=== PATIENT | female | born 1940 | race African-American/Black ===

== ENCOUNTER 2018-08-23 15:26 | Inpatient (IN) | payer MEDICARE, OTHER ==
[2018-08-23] MEDS ORDERED: Morphine 4 MG/ML VIAL ONE (16:10)
[2018-08-23] MEDS ORDERED: Acetaminophen 500 MG TAB ONE (16:12)
[2018-08-23 16:32] LABS: #Eosinphils 0.1 thou/uL (0.0-0.7); #Lymphocytes 0.9 thou/uL (1.20-3.40); #Monocytes 0.6 thou/uL (0.11-0.59); #Neutrophils 9.2 thou/uL (1.40-6.50); %Basophils 0.3 % (0.0-1.0); %Eosinophils 0.5 % (0.0-10.0); %Lymphocytes 8.2 % (21.0-51.0); %Monocytes 5.6 % (0.0-10.0); %Neutrophils 85.4 % (42.0-75.0); Hemoglobin 10.9 g/dL (12.0-16.0); Mean Corpuscular HGB CONC 32.1 g/dL (32.0-36.0); Mean Corpuscular Hemoglobin 25.1 pg (27.0-31.0); Mean Corpuscular Volume 78.1 fL (78.0-98.0); Mean Platelet Volume 7.2 fL (7.4-10.4); Platelet Count 363 thou/uL (130-400); RBC Distribution Width 13.4 % (11.5-14.5); Red Blood Cell (RBC) Count 4.36 mill/uL (4.20-5.40); White Blood Cell (WBC) Count 10.8 thou/uL (4.8-10.8)
--- NOTE | 2018-08-23 16:39 | RAD ---
1 view chest. HISTORY: Fever. AP view chest demonstrates cardiomegaly. Pulmonary vascular congestion seen. No evidence of effusions , pneumonia or pneumothorax seen. IMPRESSION: Cardiomegaly.
--- NOTE | 2018-08-23 16:46 | RAD ---
3 views right foot. HISTORY: Right-sided pain. AP, lateral and oblique views right foot obtained. 3 views right foot straight no evidence of acute fractures, subluxations or bony lesions. IMPRESSION: Normal 3 views right foot.
[2018-08-23 16:49] LABS: Bilirubin Negative (Negative); Blood, Urine Trace (Negative); Clarity TURBID (Clear); Glucose, Urine (Dipstick) Negative (Negative); Leukocyte Large (Negative); Nitrite Negative (Negative); Protein, Urine (Dipstick) 100 mg/dL (Neg-Trace); Specific Gravity, Urine 1.016 (1.002-1.036); pH, Urine 6.5 (5.0-9.0)
[2018-08-23 16:51] LABS: Bacteria/HPF 4+ HPF (None Seen)
[2018-08-23 16:54] LABS: Pathc Cast-AUWi Flag 4.76 (0-2.49)
[2018-08-23 17:00] LABS: ALT (SGPT) Less than 7 U/L (8-55); AST (SGOT) 10 U/L (5-34); Albumin 4.2 g/dL (3.4-4.8); Alkaline Phosphatase 113 U/L (40-150); Anion Gap 16 mmol/L (10-20); BUN (Urea Nitrogen) 13 mg/dL (9.8-20.1); Bilirubin, Total 0.5 mg/dL (0.2-1.2); Calc. Creatinine Clearance 0 mL/min (70-130); Calcium 9.6 mg/dL (7.8-10.44); Carbon Dioxide 24 mmol/L (23-31); Chloride 102 mmol/L (98-107); Estimated GFR-MDRD 63; Globulin 3.5 g/dL (2.4-3.5); Glucose 212 mg/dL (83-110); Lipase 8 U/L (8-78); Magnesium 2.4 mg/dL (1.6-2.6); Potassium 4.3 mmol/L (3.5-5.1); Protein, Total 7.7 g/dL (6.0-8.3); Sodium 138 mmol/L (136-145)
[2018-08-23 17:04] LABS: Hyaline Casts/LPF 0-3 HYALINE CAST LPF (0-3 Hyaline)
[2018-08-23] MEDS ORDERED: Piperacillin/Tazobactam 3.375 GM VIAL ONE (17:31)
--- NOTE | 2018-08-23 18:04 | HP ---
HISTORY OF PRESENT ILLNESS: Samina Hills is a 77-year-old black female, lives in [place] with her sister. She is admitted by Medical Service for UTI. White count of 10 and hemoglobin of 10.9. Basic metabolic profile normal. Glucose 212. I have been asked by Dr. Tsai to see her regarding her right plantar foot callus and blister. She has had this for some time. She does have diabetes mellitus type 2, on oral hypoglycemics. She has been admitted to the Medical Service for other reasons. SOCIAL HISTORY: Tobacco, none. Alcohol, none. ALLERGIES: NONE. MEDICATIONS: She takes oral hypoglycemics and list has not been reconciled. IMAGING STUDIES: She has had an x-ray of her foot, which is unremarkable. Chest x-ray reveals cardiomegaly foot. PHYSICAL EXAMINATION: VITAL SIGNS: Blood pressure 140/80, respiratory rate 18, heart rate 74. HEAD, EARS, EYES, NOSE, AND THROAT: Unremarkable. LUNGS: Clear to auscultation. CARDIAC: Regular rate and rhythm. No murmur or gallop. ABDOMEN: Soft, obese, and nontender. EXTREMITIES: Palpable femoral, popliteal, pedal pulses. Chronic venous stasis changes with edema of both lower legs. Hyperpigmentation. Right foot plantar reveals skin callus, but no infection. LABORATORY DATA: As noted above. ASSESSMENT AND PLAN: 1. Diabetes mellitus with diabetic plantar foot callus. We would plan debridement at the bedside in the next 24 to 48 hours. Risks and benefits were explained to the patient, she consents. 2. Diabetes mellitus. 3. Chronic venous stasis changes. 4. Urinary tract infection, per Medical. Job ID: [id number]
[2018-08-23] MEDS ORDERED: Bisacodyl 10 MG SUPP PR PRN (19:33)
[2018-08-23] MEDS ORDERED: Dextrose 50% Abboject 50 ML SYRINGE SLOW IVP PRN (19:33)
[2018-08-23] MEDS ORDERED: Dextrose 5% in Water 1,000 ML IV PRN (19:33)
[2018-08-23] MEDS ORDERED: Guaifenesin DM 100-10/5 ML UDCUP PO PRN (19:33)
[2018-08-23] MEDS ORDERED: Sodium Chloride 0.9% 1,000 ML IV SCH (19:33)
--- NOTE | 2018-08-23 20:03 | HP ---
REASON FOR ADMISSION: Sepsis, UTI, right heel ulcer; diabetes mellitus type 2, uncontrolled; hypertension uncontrolled. HISTORY OF PRESENTING ILLNESS: The patient gives history of having right lower quadrant abdominal pain from this morning. Her last bowel movement was 3 days back. The pain was constant pain with some radiation going to the back. As this pain was unrelenting, the patient called her son who called EMS and the patient finally made it here. On arrival, the patient was found to have right heel ulcer, which was emanating malodor. The patient was also found to have a temperature of 101.8 in the ER with blood pressure of 207/80. No complaints of chest pain or palpitation. The patient is lethargic, but oriented. PAST MEDICAL AND SURGICAL HISTORY: History of hypertension. She is off medications for diabetes as her sugars were dropping and this was a year back and stopped all her medications. No prior surgical history per patient. She has not had a colonoscopy, but the patient states she has had 2 stool tests done which were negative, hence colonoscopy was not done. No prior cardiac workup with stress test. CURRENT MEDICATIONS: Cardizem CD 240 mg p.o. daily. She does not recall other medications if she takes. To the best of her knowledge, she takes only one at present. ALLERGIES: NO KNOWN DRUG ALLERGIES. PERSONAL HISTORY: Does not abuse alcohol or drugs. 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 She ambulates by herself, although at times holds onto the may. FAMILY HISTORY: Mother at the age of 77 years, she has had history of hypertension. Father of old age at the age of 79 years. Code status is full. Power of supervisor microwave is her son, Mr. Rick Hills. REVIEW OF SYSTEMS: CONSTITUTIONAL: Negative for weight loss or gain, ability to conduct usual activities. SKIN: Negative for rash, itching. EYES: Negative for double vision, pain. ENT/MOUTH: Negative for nose bleeding, neck stiffness, pain, tenderness. CARDIOVASCULAR: Negative for palpitations, dyspnea on exertion, orthopnea. RESPIRATORY: Negative for shortness of breath, wheezing, cough, hemoptysis, fever or night sweats. GASTROINTESTINAL: Negative for poor appetite, abdominal pain, heartburn, nausea , vomiting, constipation, or diarrhea. GENITOURINARY: Negative for urgency, frequency, dysuria, nocturia. MUSCULOSKELETAL: Negative for pain, swelling. NEUROLOGIC/PSYCHIATRIC: Negative for anxiety, depression. ALLERGY/IMMUNOLOGIC: Negative for skin rash, bleeding tendency. PHYSICAL EXAMINATION: GENERAL: The patient is a 77-year-old female, who is currently lethargic, but not in any acute distress. VITAL SIGNS: Blood pressure 206/80, pulse 104 per minute, respiratory rate 18 per minute, temperature 101.8 degrees Fahrenheit, saturating 94% on room air. NECK: Supple. No elevated JVD. HEENT: Eyes; extraocular muscles intact. Pupils reacting to light. Oral cavity, mucous membranes are dry. No exudates or congestion. CARDIOVASCULAR: S1 and S2 heard. Regular rhythm. Tachycardic. RESPIRATORY: Air entry 1+ bilateral. No rales or rhonchi. ABDOMEN: Soft. Bowel sounds heard. There is mild tenderness in the right lower quadrant. No rigidity or guarding. Bowel sounds are heard. EXTREMITIES: The patient has a right heel ulceration. There is some maceration of skin. No other ulcers are seen on the right or the left foot. No calf tenderness. VASCULAR SYSTEM: Peripheral pulses are 1+ bilateral in the upper extremities. Right lower extremity barely palpable. Left is 1+ bilateral. CENTRAL NERVOUS SYSTEM: The patient is lethargic, but is oriented well. No focal deficits noted. PSYCHIATRIC: The patient's mood is euthymic. No obvious hallucinations or delusions. LABORATORY DATA: EKG done shows normal sinus rhythm at 99 beats per minute. White count of 10, H and H 11 and 34, platelet count 363, MCV 78 with 85% neutrophils. Electrolytes stable. BUN 13, creatinine 0.8, serum glucose 212. Lactic acid 0.9. Liver enzymes within normal limits. Albumin is 4.2. Lipase is 8. UA shows trace blood, large leukocyte esterase, greater than 50 wbc's, and 4+ bacteria. Three- view right foot x-ray is normal with no acute fracture, subluxation, or bony lesions. Chest x-ray done shows cardiomegaly and pulmonary vascular congestion. CLINICAL IMPRESSION AND PLAN: The patient will be admitted to medical floor for sepsis, urinary tract infection, right heel ulcer, possible chronic anemia, uncontrolled diabetes, and uncontrolled hypertension. Blood and urine cultures have been obtained in the ER. We will start her on meropenem. CT of the abdomen and pelvis is currently pending. Dr. Peterson for General surgery has evaluated her right foot and the plan is for debridement in the morning. We will get PT, OT, and wound care evaluations as well. She will be on Lantus 10 units subcu twice daily along with small dose of Lopressor and lisinopril. Echo with 2D Doppler will be obtained. We will also place on Procardia XL 30 mg daily. The patient appears to be dehydrated and has a fever of 101.8 degrees. She will be on normal saline at 100 mL/h. She will be placed on stool softeners. If needed, Dulcolax suppository will be used. We will continue to closely monitor her on medical floor. Job ID: [id number] [facility]
[2018-08-23 20:19] LABS: Hemoglobin A1c 10.1 % (4.0-6.0)
[2018-08-23 20:31] LABS: Iron 12 ug/dL (50-170); Iron Binding Capacity, Total 266 mcg/dL (265-497)
[2018-08-23 21:06] LABS: Folate (Folic Acid) 5.3 ng/mL (7.0-31.4)
[2018-08-23] MEDS: Sodium Chloride 0.9% 1,000 ML IV SCH (21:22)
[2018-08-23] MEDS: MEROPENEM 1 GM/50 ML 1 GM in Premix Bag 1 BAG IVPB SCH (21:22)
[2018-08-23] MEDS: Senokot S 8.6-50 MG TAB PO SCH (21:25)
[2018-08-23] MEDS: Metoprolol Tartrate 25 MG TAB PO SCH (21:25)
[2018-08-23] MEDS: Acetaminophen 325 MG TAB PO PRN (21:25)
[2018-08-23] MEDS: Famotidine 20 MG TAB PO SCH (21:25)
[2018-08-23] MEDS: Lisinopril 5 MG TAB PO SCH (21:26)
[2018-08-23] MEDS: Insulin Glargine 10 UNITS in Pre-Filled Syringe 1 EACH SC SCH (21:28)
[2018-08-23 21:52] VITALS: BMI 31.4
[2018-08-24] MEDS: MEROPENEM 1 GM/50 ML 1 GM in Premix Bag 1 BAG IVPB SCH ×3 (03:32→19:59)
[2018-08-24] MEDS: Acetaminophen 325 MG TAB PO PRN ×2 (03:38→19:58)
[2018-08-24] MEDS: Sodium Chloride 0.9% 1,000 ML IV SCH (06:08)
[2018-08-24 06:18] LABS: Anion Gap 18 mmol/L (10-20); BUN (Urea Nitrogen) 12 mg/dL (9.8-20.1); Calc. Creatinine Clearance 80 mL/min (70-130); Calcium 8.6 mg/dL (7.8-10.44); Carbon Dioxide 18 mmol/L (23-31); Chloride 104 mmol/L (98-107); Estimated GFR-MDRD 83; Glucose 203 mg/dL (83-110); Potassium 4.1 mmol/L (3.5-5.1); Sodium 136 mmol/L (136-145)
--- NOTE | 2018-08-24 07:46 | ULT ---
BILATERAL LOWER EXTREMITY VENOUS DOPPLER ULTRASOUND: HISTORY: Bilateral lower extremity edema. TECHNIQUE: Leigh scale ultrasound with color flow and spectral Doppler imaging of the deep venous systems of the lower extremities is performed bilaterally. FINDINGS: The calf veins are suboptimally visualized due to edema. There is good flow, compression, and augmentation noted in the common femoral, femoral, deep femoral, popliteal, visualized portions of the posterior tibial and greater saphenous veins in either lower e xtremity. IMPRESSION: No evidence of deep vein thrombosis in either lower extremity. POS: [facility]
[2018-08-24] MEDS ORDERED: Ferrous Sulfate 325 MG TAB PO SCH (08:00)
[2018-08-24 08:02] LABS: Band 7 % (5-11); Hemoglobin 10.5 g/dL (12.0-16.0); Lymphocytes 6 % (21-51); MDiff Complete? YES; Mean Corpuscular HGB CONC 30.7 g/dL (32.0-36.0); Mean Corpuscular Hemoglobin 24.4 pg (27.0-31.0); Mean Corpuscular Volume 79.3 fL (78.0-98.0); Mean Platelet Volume 7.5 fL (7.4-10.4); Monocytes 1 % (0-10); Neutrophil 86 % (42-75); Platelet Count 337 thou/uL (130-400); RBC Distribution Width 13.4 % (11.5-14.5); White Blood Cell (WBC) Count 16.4 thou/uL (4.8-10.8)
[2018-08-24] MEDS ORDERED: Prevnar 13-Val Conj/PF 0.5 ML SYRINGE IM ONE (09:00)
[2018-08-24] MEDS: NIFEdipine XL 30 MG TAB PO SCH (09:18)
[2018-08-24] MEDS: Metoprolol Tartrate 25 MG TAB PO SCH ×2 (09:19→19:58)
[2018-08-24] MEDS: Senokot S 8.6-50 MG TAB PO SCH ×2 (09:19→19:58)
[2018-08-24] MEDS: Ferrous Sulfate 325 MG TAB PO SCH (09:19)
[2018-08-24] MEDS: Folic Acid 1 MG TAB PO SCH (09:20)
[2018-08-24] MEDS: Lisinopril 5 MG TAB PO SCH ×2 (09:20→19:57)
[2018-08-24] MEDS: Famotidine 20 MG TAB PO SCH ×2 (09:20→19:58)
[2018-08-24] MEDS: Ascorbic Acid 500 mg Chewable Tablet PO SCH (09:20)
[2018-08-24] MEDS: Enoxaparin Sodium 40 MG/0.4 ML SYRINGE SC SCH (09:21)
[2018-08-24] MEDS: Insulin Glargine 10 UNITS in Pre-Filled Syringe 1 EACH SC SCH ×2 (09:21→19:58)
[2018-08-24] MEDS: Multivit, Therapeutic 1 TAB PO SCH (09:22)
--- NOTE | 2018-08-24 11:46 | PDOC.PN ---
- Subjective Encounter Start Date: 08/24/18 Encounter Start Time: 11:25 Subjective: feels better, no sob -: more awake than yesterday -: no abd pain or nausea - Objective Resuscitation Status - Order Detail: 08/23/18 19:27 Resuscitation Status Routine Resuscitation Status: FULL: Full Resuscitation Discussed with: POA: son Mr.Delvin Brannon YOUNGBLOOD Reviewed: Yes Vital Signs & Weight: Vital Signs (12 hours) Temp Pulse Resp BP BP Pulse Ox 08/24/18 11:38 99.6 F 107 H 22 H 181/76 H 90 L 08/24/18 09:20 91 152/67 H 08/24/18 09:18 91 152/67 H 08/24/18 07:32 99.2 F 91 22 H 152/67 H 94 L 08/24/18 03:48 100.8 F H 95 18 160/72 H 94 L Weight Weight 195 lb 1.745 oz I&O: 08/23/18 08/24/18 08/25/18 06:59 06:59 06:59 Intake Total 1550 Balance 1550 Result Diagrams: 08/24/18 07:16 08/24/18 05:48 Additional Labs: Accuchecks 08/23/18 21:29 POC Glucose 226 H Phys Exam - Physical Examination HEENT: PERRLA, moist MMs Neck: no JVD, supple Respiratory: no wheezing, no rales Cardiovascular: RRR, no significant murmur Gastrointestinal: soft, non-tender, no distention, positive bowel sounds Musculoskeletal: edema present right heel in dressing Neurological: non-focal, moves all 4 limbs Psychiatric: normal affect, A&O x 3 Dx/Plan (1) MRSA bacteremia Code(s): R78.81 - BACTEREMIA Status: Acute (2) Sepsis Code(s): A41.9 - SEPSIS, UNSPECIFIED ORGANISM Status: Acute Qualifiers: Sepsis type: methicillin resistant Staphylococcus aureus Qualified Code(s) : A41.02 - Sepsis due to Methicillin resistant Staphylococcus aureus (3) UTI (urinary tract infection) Status: Acute Qualifiers: Urinary tract infection type: acute cystitis Hematuria presence: without hematuria Qualified Code(s): N30.00 - Acute cystitis without hematuria (4) Ulcer of right heel Code(s): L97.419 - NON-PRS CHR ULCER OF RIGHT HEEL AND MIDFOOT W UNSP SEVERT Status: Acute Qualifiers: Non-pressure ulcer stage: with fat layer exposed Qualified Code(s): L97.412 - Non-pressure chronic ulcer of right heel and midfoot with fat layer exposed (5) DM (diabetes mellitus), type 2, uncontrolled Code(s): E11.65 - TYPE 2 DIABETES MELLITUS WITH HYPERGLYCEMIA Status: Acute Qualifiers: Glycemic state: with hyperglycemia Qualified Code(s): E11.65 - Type 2 diabetes mellitus with hyperglycemia (6) Hypertension, uncontrolled Code(s): I10 - ESSENTIAL (PRIMARY) HYPERTENSION Status: Acute (7) Obesity (BMI 30.0-34.9) Code(s): E66.9 - OBESITY, UNSPECIFIED Status: Chronic (8) Iron deficiency anemia Code(s): D50.9 - IRON DEFICIENCY ANEMIA, UNSPECIFIED Status: Acute Qualifiers: Iron deficiency anemia type: unspecified iron deficiency Qualified Code(s) : D50.9 - Iron deficiency anemia, unspecified (9) Folate deficiency Code(s): E53.8 - DEFICIENCY OF OTHER SPECIFIED B GROUP VITAMINS Status: Acute - Plan is on vanc and meropenem, await full sensitivities -: repeat blood cs, if true mrsa then foot is likely source -: gentle iv hydration, iron, folic acid, lantus and glipizide -: low dose lopressor, lisinopril, procardia xl, await echo results -: PT to mobilize as tolerated * . Review of Systems - Medications/Allergies Allergies/Adverse Reactions: Allergies Allergy/AdvReac Type Severity Reaction Status Date / Time No Known Drug Allergies Allergy Verified 08/24/18 02:51 Medications: Current Medications Acetaminophen (Tylenol) 650 mg PO Q4H PRN PRN Reason: Headache/Fever/Mild Pain (1-3) Last Admin: 08/24/18 03:38 Dose: 650 mg Ascorbic Acid (Vitamin C) 500 mg PO DAILY [facility] Last Admin: 08/24/18 09:20 Dose: 500 mg Bisacodyl (Dulcolax) 10 mg [place] DAILYPRN PRN PRN Reason: Constipation Dextrose/Water (Dextrose 50%) 25 gm SLOW IVP PRN PRN PRN Reason: Hypoglycemia Enoxaparin Sodium (Lovenox) 40 mg SC 0900 [facility] Last Admin: 08/24/18 09:21 Dose: 40 mg Famotidine (Pepcid) 20 mg PO BID [facility] Last Admin: 08/24/18 09:20 Dose: 20 mg Ferrous Sulfate (Feosol) 325 mg PO QAM-WM [facility] Last Admin: 08/24/18 09:19 Dose: 325 mg Folic Acid (Folvite) 1 mg PO DAILY [facility] Last Admin: 08/24/18 09:20 Dose: 1 mg Glipizide (Glucotrol) 5 mg PO DAILY-AC [facility] Glucagon (Glucagon) 1 mg IM PRN PRN PRN Reason: Hypoglycemia Guaifenesin/Dextromethorphan (Robitussin Dm) 15 ml PO Q4H PRN PRN Reason: Cough Dextrose/Water (D5w) 1,000 mls @ 0 mls/hr IV .Q0M PRN PRN Reason: Hypoglycemia Insulin Glargine 10 units/ (Miscellaneous Medication) 0.1 mls @ 0 mls/hr SC BID [facility] Last Admin: 08/24/18 09:21 Dose: 0.1 mls Meropenem 1 gm/ Device 50 mls @ 100 mls/hr IVPB 0400,1200,2000 [facility] Last Admin: 08/24/18 03:32 Dose: 50 mls Sodium Chloride (Normal Saline 0.9%) 1,000 mls @ 100 mls/hr IV .Q10H [facility] Stop: 08/24/18 15:32 Last Admin: 08/24/18 06:08 Dose: 1,000 mls Vancomycin HCl 1 gm/ Device 200 mls @ 200 mls/hr IVPB Q12HR [facility] Insulin Human Lispro (Humalog) 0 units SC .MODERATE SLIDING SC PRN PRN Reason: Moderate Correctional Scale Lisinopril (Zestril) 5 mg PO BID [facility] Last Admin: 08/24/18 09:20 Dose: 5 mg Metoprolol Tartrate (Lopressor) 25 mg PO BID [facility] Last Admin: 08/24/18 09:19 Dose: 25 mg Multivitamins (Theragran) 1 tab PO DAILY [facility] Last Admin: 08/24/18 09:22 Dose: 1 tab Nifedipine (Procardia Xl) 30 mg PO DAILY [facility] Last Admin: 08/24/18 09:18 Dose: 30 mg Senna/Docusate Sodium (Senokot S) 2 tab PO BID [facility] Last Admin: 08/24/18 09:19 Dose: 2 tab Sodium Chloride (Flush - Normal Saline) 10 ml IVF Q12HR [facility] Last Admin: 08/24/18 09:22 Dose: Not Given Sodium Chloride (Flush - Normal Saline) 10 ml IVF PRN PRN PRN Reason: Saline Flush
[2018-08-24] MEDS: HumaLOG 300 UNITS/3 ML VIAL SC PRN (13:08)
[2018-08-24] MEDS: Vancomycin HCl 1.75 GM in Sodium Chloride 0.9% 500 ML IVPB SCH (17:58)
[2018-08-24] MEDS ORDERED: Vancomycin HCl 1 GM in Premix Bag 1 BAG IVPB SCH (21:00)
[2018-08-25] MEDS: Acetaminophen 325 MG TAB PO PRN ×2 (00:50→21:01)
[2018-08-25] MEDS: MEROPENEM 1 GM/50 ML 1 GM in Premix Bag 1 BAG IVPB SCH ×3 (03:36→21:02)
[2018-08-25] MEDS: HumaLOG 300 UNITS/3 ML VIAL SC PRN ×2 (05:27→13:27)
[2018-08-25 06:49] LABS: #Lymphocytes 1.8 thou/uL (1.20-3.40); #Monocytes 1.5 thou/uL (0.11-0.59); %Basophils 0.3 % (0.0-1.0); %Eosinophils 0.3 % (0.0-10.0); %Lymphocytes 11.7 % (21.0-51.0); %Monocytes 9.7 % (0.0-10.0); %Neutrophils 78.1 % (42.0-75.0); Hemoglobin 10.3 g/dL (12.0-16.0); Mean Corpuscular HGB CONC 31.2 g/dL (32.0-36.0); Mean Corpuscular Hemoglobin 24.8 pg (27.0-31.0); Mean Corpuscular Volume 79.4 fL (78.0-98.0); Mean Platelet Volume 8.2 fL (7.4-10.4); Platelet Count 300 thou/uL (130-400); RBC Distribution Width 13.5 % (11.5-14.5); Red Blood Cell (RBC) Count 4.16 mill/uL (4.20-5.40); White Blood Cell (WBC) Count 15.3 thou/uL (4.8-10.8)
[2018-08-25 06:57] LABS: ALT (SGPT) 7 U/L (8-55); AST (SGOT) 13 U/L (5-34); Albumin 3.1 g/dL (3.4-4.8); Alkaline Phosphatase 100 U/L (40-150); Anion Gap 11 mmol/L (10-20); BUN (Urea Nitrogen) 14 mg/dL (9.8-20.1); Bilirubin, Total 0.6 mg/dL (0.2-1.2); Calc. Creatinine Clearance 77 mL/min (70-130); Calcium 9.1 mg/dL (7.8-10.44); Carbon Dioxide 24 mmol/L (23-31); Chloride 105 mmol/L (98-107); Estimated GFR-MDRD 79; Globulin 3.5 g/dL (2.4-3.5); Glucose 189 mg/dL (83-110); Potassium 3.4 mmol/L (3.5-5.1); Protein, Total 6.6 g/dL (6.0-8.3); Sodium 137 mmol/L (136-145)
[2018-08-25 08:13] LABS: Hypochromia SLIGHT = 6-15 cells (100X) (0-5/hpf); MDiff Complete? YES; Microcytosis SLIGHT = 6-15 cells (100X) (0-5/hpf); Platelet Morphology Comment Appears Adequate; Polychromasia SLIGHT = 2-3 cells (100X) (0-2/hpf)
[2018-08-25] MEDS ORDERED: Potassium Chloride 10 MEQ TAB PO SCH (09:00)
[2018-08-25] MEDS: Multivit, Therapeutic 1 TAB PO SCH (09:28)
[2018-08-25] MEDS: Ferrous Sulfate 325 MG TAB PO SCH (09:28)
[2018-08-25] MEDS: Famotidine 20 MG TAB PO SCH ×2 (09:28→21:02)
[2018-08-25] MEDS: Metoprolol Tartrate 25 MG TAB PO SCH ×2 (09:29→21:02)
[2018-08-25] MEDS: Senokot S 8.6-50 MG TAB PO SCH ×2 (09:29→21:02)
[2018-08-25] MEDS: glipiZIDE 5 MG TAB PO SCH (09:29)
[2018-08-25] MEDS: NIFEdipine XL 30 MG TAB PO SCH (09:29)
[2018-08-25] MEDS: Ascorbic Acid 500 mg Chewable Tablet PO SCH (09:30)
[2018-08-25] MEDS: Insulin Glargine 10 UNITS in Pre-Filled Syringe 1 EACH SC SCH ×2 (09:30→21:03)
[2018-08-25] MEDS: Lisinopril 5 MG TAB PO SCH ×2 (09:30→21:02)
[2018-08-25] MEDS: Enoxaparin Sodium 40 MG/0.4 ML SYRINGE SC SCH (09:30)
[2018-08-25] MEDS: Folic Acid 1 MG TAB PO SCH (09:31)
--- NOTE | 2018-08-25 11:37 | PDOC.PN ---
- Subjective Encounter Start Date: 08/25/18 Encounter Start Time: 11:00 Patient seen and examined for diabetic foot infection/Sepsis. Fever +. No chills. No new complaints. No overnight events - Objective Resuscitation Status - Order Detail: 08/23/18 19:27 Resuscitation Status Routine Resuscitation Status: FULL: Full Resuscitation Discussed with: POA: son Mr.Delvin Brannon YOUNGBLOOD Reviewed: Yes Vital Signs & Weight: Vital Signs (12 hours) Temp Pulse Resp BP BP Pulse Ox 08/25/18 09:30 93 125/68 08/25/18 09:29 93 125/68 08/25/18 08:00 100.0 F H 93 22 H 125/68 94 L 08/25/18 05:07 99.8 F H 100 20 126/69 92 L 08/25/18 00:56 99.7 F H 93 20 106/67 91 L Weight Admit Weight 195 lb 1.745 oz Weight 195 lb 1.745 oz I&O: 08/24/18 08/25/18 08/26/18 06:59 06:59 06:59 Intake Total 1550 3210 Balance 1550 3210 Result Diagrams: 08/25/18 05:07 08/25/18 05:07 Additional Labs: Accuchecks 08/25/18 08/25/18 08/24/18 10:34 05:00 19:51 POC Glucose 203 H 192 H 279 H 08/24/18 08/24/18 16:53 11:43 POC Glucose 183 H 183 H Radiology Reviewed by me: Yes (CXR - NAD, Foot XR - No Osteo) Phys Exam - Physical Examination Constitutional: NAD Respiratory: no wheezing, no rales, no rhonchi Symmetrical Cardiovascular: RRR, no rub no heaves/pulsations Gastrointestinal: soft, non-tender, no distention, positive bowel sounds Musculoskeletal: edema present B/L LE Neurological: non-focal, normal sensation Psychiatric: normal affect, A&O x 3 Dx/Plan - Plan PT/OT, DVT proph w/lovenox, DVT proph w/SCDs IMPRESSION: Sepsis due to Staph UTI with bacteremia/Diabetic foot infection DM2 Hypokalemia HTN Obesity BMI 31.5 Chronic Venous Stasis Chronic Anemia CKD 2 Folic acid def PLAN: Cont Vancomycin/Meropenem Monitor Vancomycin level Cont current dose of Lantus with sliding scale Replace Potassium AM labs Cont Wound care Echo - No vegetation Cont Lisinopril Review of Systems - Review of Systems Respiratory: negative: Cough, Dry, Shortness of Breath, Hemoptysis, SOB with Excertion, Pleuritic Pain, Sputum, Wheezing Cardiovascular: negative: chest pain, palpitations, orthopnea, paroxysmal nocturnal dyspnea, edema, light headedness, other - Medications/Allergies Allergies/Adverse Reactions: Allergies Allergy/AdvReac Type Severity Reaction Status Date / Time No Known Drug Allergies Allergy Verified 08/24/18 02:51 Medications: Current Medications Acetaminophen (Tylenol) 650 mg PO Q4H PRN PRN Reason: Headache/Fever/Mild Pain (1-3) Last Admin: 08/25/18 00:50 Dose: 650 mg Ascorbic Acid (Vitamin C) 500 mg PO DAILY [facility] Last Admin: 08/25/18 09:30 Dose: 500 mg Bisacodyl (Dulcolax) 10 mg [place] DAILYPRN PRN PRN Reason: Constipation Dextrose/Water (Dextrose 50%) 25 gm SLOW IVP PRN PRN PRN Reason: Hypoglycemia Enoxaparin Sodium (Lovenox) 40 mg SC 0900 [facility] Last Admin: 08/25/18 09:30 Dose: 40 mg Famotidine (Pepcid) 20 mg PO BID [facility] Last Admin: 08/25/18 09:28 Dose: 20 mg Ferrous Sulfate (Feosol) 325 mg PO QAM-[facility] Last Admin: 08/25/18 09:28 Dose: 325 mg Folic Acid (Folvite) 1 mg PO DAILY [facility] Last Admin: 08/25/18 09:31 Dose: 1 mg Glipizide (Glucotrol) 5 mg PO DAILY-[facility] Last Admin: 08/25/18 09:29 Dose: 5 mg Glucagon (Glucagon) 1 mg IM PRN PRN PRN Reason: Hypoglycemia Guaifenesin/Dextromethorphan (Robitussin Dm) 15 ml PO Q4H PRN PRN Reason: Cough Dextrose/Water (D5w) 1,000 mls @ 0 mls/hr IV .Q0M PRN PRN Reason: Hypoglycemia Insulin Glargine 10 units/ (Miscellaneous Medication) 0.1 mls @ 0 mls/hr SC BID [facility] Last Admin: 08/25/18 09:30 Dose: 0.1 mls Meropenem 1 gm/ Device 50 mls @ 100 mls/hr IVPB 0400,1200,2000 [facility] Last Admin: 08/25/18 03:36 Dose: 50 mls Vancomycin HCl 1.75 gm/ Sodium (Chloride) 500 mls @ 250 mls/hr IVPB 1800 [facility] Last Admin: 08/24/18 17:58 Dose: 500 mls Insulin Human Lispro (Humalog) 0 units SC .MODERATE SLIDING SC PRN PRN Reason: Moderate Correctional Scale Last Admin: 08/25/18 05:27 Dose: 2 unit Lisinopril (Zestril) 5 mg PO BID [facility] Last Admin: 08/25/18 09:30 Dose: 5 mg Metoprolol Tartrate (Lopressor) 25 mg PO BID [facility] Last Admin: 08/25/18 09:29 Dose: 25 mg Miscellaneous Medication (Pharmacy To Dose) 1 each IVPB PRN PRN PRN Reason: . Multivitamins (Theragran) 1 tab PO DAILY [facility] Last Admin: 08/25/18 09:28 Dose: 1 tab Nifedipine (Procardia Xl) 30 mg PO DAILY [facility] Last Admin: 08/25/18 09:29 Dose: 30 mg Polyethylene Glycol (Miralax) 17 gm PO DAILY PRN PRN Reason: Constipation Senna/Docusate Sodium (Senokot S) 2 tab PO BID [facility] Last Admin: 08/25/18 09:29 Dose: 2 tab Sodium Chloride (Flush - Normal Saline) 10 ml IVF Q12HR [facility] Last Admin: 08/25/18 09:31 Dose: 10 ml Sodium Chloride (Flush - Normal Saline) 10 ml IVF PRN PRN PRN Reason: Saline Flush
[2018-08-25] MEDS: Polyethylene Glycol 3350 17 GM Packet PO PRN (14:59)
--- NOTE | 2018-08-25 15:25 | PDOC.EVN ---
Event Note - Event Note Event Note: RN called - Bladder scan >999 ml. Plan: Ortiz cath
[2018-08-25] MEDS: Vancomycin HCl 1.75 GM in Sodium Chloride 0.9% 500 ML IVPB SCH (18:08)
--- NOTE | 2018-08-25 19:42 | ULT ---
LOWER EXTREMITY ARTERIAL DOPPLER STUDY: 08/25/18 INDICATIONS: Absent peripheral pulses. Right heel ulcer. Right lower extremity: Right common femoral artery showed triphasic waveform. The right profunda, superficial femoral artery and popliteal artery all show a biphasic waveform with symmetric velocities. Anterior tibial artery not identified. Posterior tibial artery and dorsal pedis artery show a biphasic waveform. Left lower extremity: Left common femoral artery, profunda, superficial femoral artery, and popliteal all demonstrate bipha sic waveforms. Velocities are symmetric. The left anterior tibial artery not identified. Left posterior tibial artery shows a biphasic waveform. The left dorsal pedis shows a monophasic waveform. IMPRESSION: Anterior tibial artery is not identified in either extremity which could indicate occlusion bilateral ly. Waveform analysis shows evidence of moderate peripheral vascular disease. POS: [facility]
--- NOTE | 2018-08-25 21:50 | CON ---
DATE OF CONSULTATION: 08/25/2018 REASON FOR CONSULTATION: Bacteremia with an ulcer in the right foot. HISTORY OF PRESENT ILLNESS: A 77-year-old with a history of type 2 diabetes, poorly controlled, who was admitted with what she describes as diffuse abdominal pain, some constipation. She was brought to the emergency room because of this pain and general malaise, but on arrival, she had an obvious necrotic ulcer in the right heel. According to the patient, her ulcer has been there for at least 3 weeks and no doctor has evaluated it yet. There was a foul odor emanating from the ulcer. Initial temperature 101.8. Currently, she is awake. She has just finished eating lunch. No headaches. No visual symptoms, sore throat, odynophagia, or dysphagia. No dyspnea or chest pain. No abdominal pain. No diarrhea. No genitourinary symptoms. Not much pain in the right foot. PAST MEDICAL HISTORY: Hypertension, diabetes type 2, neuropathy. ALLERGIES: NONE. 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 CURRENT MEDICATIONS: 1. Tylenol. 2. Vitamin C. 3. Dulcolax. 4. Lovenox. 5. Pepcid. 6. Feosol. 7. Folvite. 8. Glucotrol. 9. Insulin. 10. Zestril. 11. Meropenem. 12. Vancomycin. FAMILY HISTORY: Noncontributory. PHYSICAL EXAMINATION: VITAL SIGNS: T-max 102.6, currently 100; blood pressure 130/74; pulse 96. SKIN: Exam shows necrotic ulcer at the base of the right heel. The ulcer encompasses pretty much the entire right heel skin surface at the base. The ulcer is necrotic in all its dimensions. LYMPHATIC: No lymphadenopathy. HEENT: Ocular movements conjugate. Oral cavity not remarkable. NECK: Supple. No jugular venous distention. LUNGS: Symmetric. Clear breath sounds. HEART: S1 and S2. Regular rate. No S3 or S4. ABDOMEN: Soft, not distended or tender. No ascites. No bladder distention. EXTREMITIES: Pulses are diminished in popliteal and dorsalis pedis on the right side. I could not feel any dorsalis pedis or posterior tibialis. Left side has 1+ dorsalis pedis and popliteals. Cap refill is delayed. She is able to move extremities without major limitations. Cognitive function appears to be intact. LABORATORY DATA: White cell count 10.8 and 15.3, hemoglobin 10.3, platelets 300. Sodium 137, creatinine 0.84, ALT 7, AST 13, globulin 3.1, albumin 3.5. Urinalysis with greater than 50 wbc's and 100 protein. ASSESSMENT: Type 2 diabetes, peripheral vascular disease, coronary artery disease, chronic ulcer right heel of unknown duration, which now has progressed to a more aggressive process with bacteremia due to methicillin-resistant Staphylococcus aureus. A polymicrobial comfort is likely though it is at the origin of this infection. We will order a duplex arterial ultrasound to evaluate vascular supply to the right lower extremity. Dr. Peterson is going to schedule debridement. The patient is at high risk for amputation in view of the area of involvement and the advance necrosis noted. If she is managed without amputation, then the next step would have to be to place a PICC line for protracted treatment, but again she is at risk for a below-knee amputation. Job ID: [id number]
[2018-08-26] MEDS: MEROPENEM 1 GM/50 ML 1 GM in Premix Bag 1 BAG IVPB SCH ×3 (04:00→20:41)
[2018-08-26 05:58] LABS: Anion Gap 10 mmol/L (10-20); BUN (Urea Nitrogen) 13 mg/dL (9.8-20.1); Calc. Creatinine Clearance 90 mL/min (70-130); Calcium 8.6 mg/dL (7.8-10.44); Carbon Dioxide 24 mmol/L (23-31); Chloride 106 mmol/L (98-107); Estimated GFR-MDRD Greater than 90; Glucose 111 mg/dL (83-110); Magnesium 1.9 mg/dL (1.6-2.6); Potassium 3.4 mmol/L (3.5-5.1); Sodium 137 mmol/L (136-145)
[2018-08-26 06:47] LABS: #Eosinphils 0.2 thou/uL (0.0-0.7); #Lymphocytes 1.8 thou/uL (1.20-3.40); #Monocytes 1.2 thou/uL (0.11-0.59); #Neutrophils 8.6 thou/uL (1.40-6.50); %Eosinophils 1.6 % (0.0-10.0); %Lymphocytes 15.6 % (21.0-51.0); %Monocytes 10.1 % (0.0-10.0); %Neutrophils 72.6 % (42.0-75.0); Hemoglobin 9.6 g/dL (12.0-16.0); Mean Corpuscular HGB CONC 30.4 g/dL (32.0-36.0); Mean Corpuscular Hemoglobin 24.2 pg (27.0-31.0); Mean Corpuscular Volume 79.6 fL (78.0-98.0); Mean Platelet Volume 8.1 fL (7.4-10.4); Platelet Count 302 thou/uL (130-400); RBC Distribution Width 13.4 % (11.5-14.5); Red Blood Cell (RBC) Count 3.97 mill/uL (4.20-5.40); White Blood Cell (WBC) Count 11.8 thou/uL (4.8-10.8)
[2018-08-26] MEDS: Insulin Glargine 10 UNITS in Pre-Filled Syringe 1 EACH SC SCH ×2 (08:41→20:45)
[2018-08-26] MEDS: Senokot S 8.6-50 MG TAB PO SCH ×2 (08:42→20:42)
[2018-08-26] MEDS: glipiZIDE 5 MG TAB PO SCH (08:42)
[2018-08-26] MEDS: Potassium Chloride 20 MEQ TAB PO SCH ×2 (08:42→17:49)
[2018-08-26] MEDS: Multivit, Therapeutic 1 TAB PO SCH (08:42)
[2018-08-26] MEDS: Ferrous Sulfate 325 MG TAB PO SCH (08:42)
[2018-08-26] MEDS: Ascorbic Acid 500 mg Chewable Tablet PO SCH (08:42)
[2018-08-26] MEDS: Folic Acid 1 MG TAB PO SCH (08:42)
[2018-08-26] MEDS: NIFEdipine XL 30 MG TAB PO SCH (08:43)
[2018-08-26] MEDS: Lisinopril 5 MG TAB PO SCH ×2 (08:43→20:42)
[2018-08-26] MEDS: Metoprolol Tartrate 25 MG TAB PO SCH ×2 (08:43→20:42)
[2018-08-26] MEDS: Famotidine 20 MG TAB PO SCH ×2 (08:43→20:42)
[2018-08-26] MEDS: Enoxaparin Sodium 40 MG/0.4 ML SYRINGE SC SCH (08:43)
--- NOTE | 2018-08-26 10:25 | OP ---
DATE OF PROCEDURE: 08/25/2018 Samina Hills is seen today. Her right heel has callus tissue. At the bedside, this was cleansed with alcohol and debrided sharply. There was no underlying infection. There was only callus and loose skin that was debrided. No further debridement was necessary. At this point, I will see her as needed. She can follow up as needed. No further intervention needed for her heel. Job ID: [id number]
--- NOTE | 2018-08-26 12:38 | PDOC.PN ---
- Subjective Encounter Start Date: 08/26/18 Encounter Start Time: 11:45 Patient seen and examined for Sepsis. Billings placed yesterday. No fever/chills. No new complaints. No overnight events - Objective Resuscitation Status - Order Detail: 08/23/18 19:27 Resuscitation Status Routine Resuscitation Status: FULL: Full Resuscitation Discussed with: POA: son Mr.Delvin Brannon YOUNGBLOOD Reviewed: Yes Vital Signs & Weight: Vital Signs (12 hours) Temp Pulse Resp BP BP Pulse Ox 08/26/18 08:43 77 147/72 H 08/26/18 08:00 97 08/26/18 07:55 99.0 F 77 20 147/72 H 97 08/26/18 04:00 99.5 F 66 20 125/67 96 08/26/18 00:56 99.4 F 100 20 104/65 96 Weight Admit Weight 195 lb 1.745 oz Weight 195 lb 1.745 oz I&O: 08/25/18 08/26/18 08/27/18 06:59 06:59 06:59 Intake Total 3210 1590 200 Output Total 1500 Balance 3210 90 200 Result Diagrams: 08/26/18 04:59 08/26/18 04:59 Additional Labs: Accuchecks 08/26/18 08/26/18 08/25/18 11:08 05:06 20:53 POC Glucose 180 H 104 147 H 08/25/18 18:00 POC Glucose 123 H Phys Exam - Physical Examination Constitutional: NAD Respiratory: no wheezing, no rhonchi Cardiovascular: RRR, no rub Gastrointestinal: soft, non-tender, positive bowel sounds Musculoskeletal: no edema Neurological: moves all 4 limbs Dx/Plan - Plan DVT proph w/lovenox IMPRESSION: Sepsis due to Staph UTI with bacteremia DM2 Hypokalemia HTN Urinary retention s/p billings placement Obesity BMI 31.5 Chronic Venous Stasis PAD Chronic Anemia CKD 2 Folic acid deficiency Diabetic foot infection - ruled out PLAN: Cont Vancomycin/Meropenem Monitor Vancomycin level Cont current dose of Lantus with sliding scale Potassium 20 meq x 2 dose AM labs Cont Wound care Cont Lisinopril Cont Billings Consult Urology Review of Systems - Review of Systems Respiratory: negative: Cough, Dry, Shortness of Breath, Hemoptysis, SOB with Excertion, Pleuritic Pain, Sputum, Wheezing Cardiovascular: negative: chest pain, palpitations, orthopnea, paroxysmal nocturnal dyspnea, edema, light headedness, other Gastrointestinal: negative: Nausea, Vomiting, Abdominal Pain, Diarrhea, Constipation, Melena, Hematochezia, Other - Medications/Allergies Allergies/Adverse Reactions: Allergies Allergy/AdvReac Type Severity Reaction Status Date / Time No Known Drug Allergies Allergy Verified 08/24/18 02:51 Medications: Current Medications Acetaminophen (Tylenol) 650 mg PO Q4H PRN PRN Reason: Headache/Fever/Mild Pain (1-3) Last Admin: 08/25/18 21:01 Dose: 650 mg Ascorbic Acid (Vitamin C) 500 mg PO DAILY [facility] Last Admin: 08/26/18 08:42 Dose: 500 mg Aspirin (Ecotrin) 81 mg PO DAILY [facility] Bisacodyl (Dulcolax) 10 mg [place] DAILYPRN PRN PRN Reason: Constipation Dextrose/Water (Dextrose 50%) 25 gm SLOW IVP PRN PRN PRN Reason: Hypoglycemia Enoxaparin Sodium (Lovenox) 40 mg SC 0900 [facility] Last Admin: 08/26/18 08:43 Dose: 40 mg Famotidine (Pepcid) 20 mg PO BID [facility] Last Admin: 08/26/18 08:43 Dose: 20 mg Ferrous Sulfate (Feosol) 325 mg PO QA-[facility] Last Admin: 08/26/18 08:42 Dose: 325 mg Folic Acid (Folvite) 1 mg PO DAILY [facility] Last Admin: 08/26/18 08:42 Dose: 1 mg Glipizide (Glucotrol) 5 mg PO DAILY-[facility] Last Admin: 08/26/18 08:42 Dose: 5 mg Glucagon (Glucagon) 1 mg IM PRN PRN PRN Reason: Hypoglycemia Guaifenesin/Dextromethorphan (Robitussin Dm) 15 ml PO Q4H PRN PRN Reason: Cough Dextrose/Water (D5w) 1,000 mls @ 0 mls/hr IV .Q0M PRN PRN Reason: Hypoglycemia Insulin Glargine 10 units/ (Miscellaneous Medication) 0.1 mls @ 0 mls/hr SC BID [facility] Last Admin: 08/26/18 08:41 Dose: 0.1 mls Meropenem 1 gm/ Device 50 mls @ 100 mls/hr IVPB 0400,1200,2000 [facility] Last Admin: 08/26/18 04:00 Dose: 50 mls Vancomycin HCl 1.75 gm/ Sodium (Chloride) 500 mls @ 250 mls/hr IVPB 1800 [facility] Last Admin: 08/25/18 18:08 Dose: 500 mls Insulin Human Lispro (Humalog) 0 units SC .MODERATE SLIDING SC PRN PRN Reason: Moderate Correctional Scale Last Admin: 08/25/18 13:27 Dose: 4 unit Lisinopril (Zestril) 5 mg PO BID [facility] Last Admin: 08/26/18 08:43 Dose: 5 mg Metoprolol Tartrate (Lopressor) 25 mg PO BID [facility] Last Admin: 08/26/18 08:43 Dose: 25 mg Miscellaneous Medication (Pharmacy To Dose) 1 each IVPB PRN PRN PRN Reason: . Multivitamins (Theragran) 1 tab PO DAILY [facility] Last Admin: 08/26/18 08:42 Dose: 1 tab Nifedipine (Procardia Xl) 30 mg PO DAILY [facility] Last Admin: 08/26/18 08:43 Dose: 30 mg Polyethylene Glycol (Miralax) 17 gm PO DAILY PRN PRN Reason: Constipation Last Admin: 08/25/18 14:59 Dose: 17 gm Potassium Chloride (K-Dur) 20 meq PO BID-[facility] Stop: 08/26/18 17:01 Last Admin: 08/26/18 08:42 Dose: 20 meq Senna/Docusate Sodium (Senokot S) 2 tab PO BID [facility] Last Admin: 08/26/18 08:42 Dose: Not Given Sodium Chloride (Flush - Normal Saline) 10 ml IVF Q12HR [facility] Last Admin: 08/26/18 08:43 Dose: 10 ml Sodium Chloride (Flush - Normal Saline) 10 ml IVF PRN PRN PRN Reason: Saline Flush
[2018-08-26] MEDS: HumaLOG 300 UNITS/3 ML VIAL SC PRN (13:09)
[2018-08-26 17:39] LABS: Vancomycin, Trough 10.9 ug/mL
--- NOTE | 2018-08-26 17:45 | PRG ---
DATE OF SERVICE: 08/26/2018 SUBJECTIVE: Jeana had a limited debridement at the bedside. She noticed that there is less swelling in the right lower extremity. No headaches. No back pain. No shortness of breath or chest pain. No abdominal pain or diarrhea. She is voiding with an indwelling Ortiz catheter. OBJECTIVE: VITAL SIGNS: T-max was 102.6, now she is down to 99; blood pressure 140/70; pulse 77; respirations 20; O2 saturation 97%. GENERAL: Appears in no distress, oriented, follows commands. HEENT: Ocular movements conjugate. Sclerae white. LUNGS: Clear. HEART: S1 and S2. Regular rate. No S3 or S4. ABDOMEN: Soft, not distended or tender. EXTREMITIES: Right heel is still with the sort of anaerobic smell. These are areas of limited debridement. It is quite discolored compared with the left heel, which is kind of normal skin color and I am impressed by the blackness of the left heel and there might be some areas of purulence under the skin of the right heel. Dr. Peterson was not very impressed by it. LABORATORY DATA: Her white cell count is down from 16 to 11, hemoglobin 9.6, platelets 302. Sodium 137, creatinine 0.72. Microbiology with 4 different sets with MRSA. The arterial ultrasound of lower extremities with anterior tibial artery not identified, probably blocked, and each extremity of the other ones with moderate peripheral vascular disease. Dorsalis pedis pulse is palpable at this time on the right side, I could not feel it yesterday. Echocardiogram with diastolic dysfunction, mildly dilated left atrium, mildly thickened aortic valve. ASSESSMENT AND DISCUSSION: Type 2 diabetes, poorly controlled initially with diffuse abdominal pain and then the heel findings. I am still concerned about the heel findings, particularly in view of the odor and marked discoloration compared with the left side, who had ordered an MRI of the heel and this will be done with contrast. She may need a MAUREEN to rule out endocarditis if the heel does not show any major findings. It looks like vascular supplies are decent, although she does have some moderate peripheral vascular disease. She will need protracted IV vancomycin and will need a PICC line insertion. Repeat blood cultures will have to be drawn to verify resolution of bacteremia down the road. If the MRI of the heel shows of significant abnormalities, then we will have to reassess for surgical intervention. Job ID: [id number]
--- NOTE | 2018-08-26 23:54 | CON ---
DATE OF CONSULTATION: 08/26/2018 REASON FOR CONSULTATION: Urinary retention. HISTORY OF PRESENT ILLNESS: Ms. Hills is a 77-year-old female who presented with right lower quadrant pain via EMS to the [facility] Emergency Department. The patient was found to be febrile with a temperature of 101.8, and she was extremely hypertensive as well. She was noticed to have a right heel ulcer, which had purulent drainage. The patient was subsequently admitted for this ulcer that was debrided at the bedside. The patient also was noted to have severe constipation. She also had some voiding difficulty yesterday and Ortiz catheter was placed, and she had a large postvoid residual. Her constipation was treated and she has had several large bowel movements. Prior to this, she denies any urinary frequency or urgency. No history of urinary retention in the past. She no longer has any abdominal pain. No urinary incontinence. No gross hematuria. No other complaints. REVIEW OF SYSTEMS: Full 12-point review of systems was performed and is negative other than that mentioned in HPI. PAST MEDICAL HISTORY: Hypertension, type 2 diabetes. PAST SURGICAL HISTORY: None. MEDICATIONS: Cardizem. ALLERGIES: NO KNOWN DRUG ALLERGIES. FAMILY HISTORY: Noncontributory. SOCIAL HISTORY: No tobacco history. No current alcohol. PHYSICAL EXAMINATION: VITAL SIGNS: Temperature is 99 at 7:55 am this morning, pulse 77, blood pressure 147/72. GENERAL: She is alert and oriented x3, in no apparent distress. HEENT: Normocephalic and atraumatic. NECK: Supple. No masses or lymphadenopathy. CARDIOVASCULAR: Regular rate and rhythm. PULMONARY: Breathing unlabored. ABDOMEN: Soft, nontender/nondistended. No masses or organomegaly. No suprapubic tenderness to palpation. No CVA tenderness. GENITOURINARY: Ortiz catheter in place, draining clear yellow urine. EXTREMITIES: Warm and well perfused. No edema. NEUROLOGIC: No focal deficits. LABORATORY DATA: BUN 13, creatinine 0.72. Urine at admission had large leukocyte esterase and greater than 50 white blood cells per high-power field. There was significant number of squamous epithelial cells as well as bacteria. Urine culture grew MRSA as well as her blood culture. ASSESSMENT: A 77-year-old female with diabetic foot ulcer, constipation, urinary retention, urinary tract infection, sepsis. PLAN: Etiology of the patient's urinary retention is likely multifactorial. She had severe constipation as well as urinary tract infection. The patient's constipation has resolved. Prior to this, she denies any history of urinary retention, so it would be reasonable to give the patient a voiding trial prior to her discharge. If she is unable to void, a Ortiz catheter should be replaced and she should be scheduled for outpatient followup with Urology. Job ID: [id number]
[2018-08-27] MEDS: MEROPENEM 1 GM/50 ML 1 GM in Premix Bag 1 BAG IVPB SCH ×3 (04:57→21:32)
[2018-08-27] MEDS: Aspirin 81 mg Enteric Coated Tablet PO SCH (08:10)
[2018-08-27] MEDS: Folic Acid 1 MG TAB PO SCH (08:10)
[2018-08-27] MEDS: Famotidine 20 MG TAB PO SCH ×2 (08:10→21:32)
[2018-08-27] MEDS: glipiZIDE 5 MG TAB PO SCH (08:10)
[2018-08-27] MEDS: NIFEdipine XL 30 MG TAB PO SCH (08:10)
[2018-08-27] MEDS: Insulin Glargine 10 UNITS in Pre-Filled Syringe 1 EACH SC SCH (08:11)
[2018-08-27] MEDS: Metoprolol Tartrate 25 MG TAB PO SCH ×2 (08:11→21:31)
[2018-08-27] MEDS: Ferrous Sulfate 325 MG TAB PO SCH (08:11)
[2018-08-27] MEDS: Ascorbic Acid 500 mg Chewable Tablet PO SCH (08:11)
[2018-08-27] MEDS: Multivit, Therapeutic 1 TAB PO SCH (08:11)
[2018-08-27] MEDS: Lisinopril 5 MG TAB PO SCH ×2 (08:11→21:31)
[2018-08-27] MEDS: Senokot S 8.6-50 MG TAB PO SCH ×2 (08:12→21:31)
[2018-08-27] MEDS: Enoxaparin Sodium 40 MG/0.4 ML SYRINGE SC SCH (08:24)
--- NOTE | 2018-08-27 11:10 | MRI ---
MRI OF RIGHT HINDFOOT WITH AND WITHOUT IV CONTRAST: INDICATION: Heel ulcer, concern for osteomyelitis. Contrast: 18 mL of MultiHance. FINDINGS: There is a small superficial ulceration involving the heel pad of the plantar aspect of the hindfoot. No definite drainable fluid collection is grossly evident. There is some reticulation of the heel pad fat suspicious for a cellulitis. No abnormal marrow signal intensity is seen to suggest presence of osteomyelitis. There is moderate enthesopathic change off the posterior and plantar calcaneus with mild thickening of the medial plantar fascial band suspicious for changes of a mild plantar fasc iitis. There is mild Achilles tendinosis. There is diffuse muscular atrophy of the intrinsic foot musculature with increased T2 signal suspicious for denervation changes. The medial flexor tendons an d extensor tendons appear intact. Lisfranc ligament is intact. There is scattered osteoarthrosis of the mid foot. There are mild edematous changes involving the distal aspect of the FHL and extensor di gitorum longus which may be related to lymphedema or mild myositis. IMPRESSION: 1. Heel ulceration with associated surrounding cellulitis. No large drainable fluid collection is tita dent. No overt changes of osteomyelitis is demonstrated. 2. Subcutaneous edema of the lower extremity and foot may reflect lymphedema or changes of cellulitis . 3. Increased T2 signal involving the musculature of the extensor digitorum longus and FHL may be rela jaquelin to the patient's edema or may be related to myositis. 4. Denervation atrophy suspected involving the intrinsic foot musculature of the right foot. 5. Achilles tendinosis. 6. Thickening of the plantar fascial band and enthesopathic change off the plantar calcaneus suspicio us for changes of a mild plantar fasciitis. Transcribed Date/Time: 08/27/2018 1:38 PM
--- NOTE | 2018-08-27 17:36 | PDOC.PN ---
- Subjective Encounter Start Date: 08/27/18 Encounter Start Time: 13:30 Patient seen and examined for Sepsis. Feeling better. No N/V/fever. No new complaints. No overnight events - Objective Resuscitation Status - Order Detail: 08/23/18 19:27 Resuscitation Status Routine Resuscitation Status: FULL: Full Resuscitation Discussed with: POA: son Mr.Delvin Brannon YOUNGBLOOD Reviewed: Yes Vital Signs & Weight: Vital Signs (12 hours) Temp Pulse Resp BP Pulse Ox 08/27/18 08:11 80 08/27/18 08:10 80 08/27/18 08:00 97 08/27/18 07:51 100.1 F H 80 18 150/67 H 96 Weight Admit Weight 195 lb 1.745 oz Weight 195 lb 1.745 oz I&O: 08/26/18 08/27/18 08/28/18 06:59 06:59 06:59 Intake Total 1590 1020 240 Output Total 1500 4075 Balance 90 -3055 240 Result Diagrams: 08/26/18 04:59 08/26/18 04:59 Additional Labs: Accuchecks 08/27/18 08/27/18 08/27/18 16:23 11:42 03:55 POC Glucose 77 108 113 H 08/26/18 20:44 POC Glucose 113 H Phys Exam - Physical Examination Constitutional: NAD Respiratory: no wheezing, no rhonchi Cardiovascular: RRR, no rub Gastrointestinal: soft, non-tender, positive bowel sounds billings + Musculoskeletal: no edema Neurological: moves all 4 limbs Dx/Plan - Plan DVT proph w/SCDs IMPRESSION: Sepsis due to Staph UTI with bacteremia/Diabetic foot infection DM2 Hypokalemia HTN Urinary retention - prob due to constipation s/p billings placement Obesity BMI 31.5 Chronic Venous Stasis PAD Chronic Anemia CKD 2 Folic acid deficiency PLAN: Cont Vancomycin/Meropenem with Vancomycin level monitoring Await MRI foot MAUREEN ordered AM labs Cont Wound care Cont Lisinopril Cont Billings - voiding trial prior to dc Urology input apppreciated Review of Systems - Review of Systems Respiratory: negative: Cough, Dry, Shortness of Breath, Hemoptysis, SOB with Excertion, Pleuritic Pain, Sputum, Wheezing Cardiovascular: negative: chest pain, palpitations, orthopnea, paroxysmal nocturnal dyspnea, edema, light headedness, other - Medications/Allergies Allergies/Adverse Reactions: Allergies Allergy/AdvReac Type Severity Reaction Status Date / Time No Known Drug Allergies Allergy Verified 08/24/18 02:51 Medications: Current Medications Acetaminophen (Tylenol) 650 mg PO Q4H PRN PRN Reason: Headache/Fever/Mild Pain (1-3) Last Admin: 08/25/18 21:01 Dose: 650 mg Ascorbic Acid (Vitamin C) 500 mg PO DAILY [facility] Last Admin: 08/27/18 08:11 Dose: 500 mg Aspirin (Ecotrin) 81 mg PO DAILY [facility] Last Admin: 08/27/18 08:10 Dose: 81 mg Bisacodyl (Dulcolax) 10 mg DC DAILYPRN PRN PRN Reason: Constipation Dextrose/Water (Dextrose 50%) 25 gm SLOW IVP PRN PRN PRN Reason: Hypoglycemia Enoxaparin Sodium (Lovenox) 40 mg SC 0900 [facility] Last Admin: 08/27/18 08:24 Dose: 40 mg Famotidine (Pepcid) 20 mg PO BID [facility] Last Admin: 08/27/18 08:10 Dose: 20 mg Ferrous Sulfate (Feosol) 325 mg PO QAM-[facility] Last Admin: 08/27/18 08:11 Dose: 325 mg Folic Acid (Folvite) 1 mg PO DAILY [facility] Last Admin: 08/27/18 08:10 Dose: 1 mg Glipizide (Glucotrol) 5 mg PO DAILY-[facility] Last Admin: 08/27/18 08:10 Dose: 5 mg Glucagon (Glucagon) 1 mg IM PRN PRN PRN Reason: Hypoglycemia Guaifenesin/Dextromethorphan (Robitussin Dm) 15 ml PO Q4H PRN PRN Reason: Cough Dextrose/Water (D5w) 1,000 mls @ 0 mls/hr IV .Q0M PRN PRN Reason: Hypoglycemia Insulin Glargine 10 units/ (Miscellaneous Medication) 0.1 mls @ 0 mls/hr SC BID [facility] Last Admin: 08/27/18 08:11 Dose: 0.1 mls Meropenem 1 gm/ Device 50 mls @ 100 mls/hr IVPB 0400,1200,2000 [facility] Last Admin: 08/27/18 11:32 Dose: 50 mls Vancomycin HCl 2 gm/ Sodium (Chloride) 500 mls @ 250 mls/hr IVPB 1800 [facility] Last Admin: 08/26/18 18:12 Dose: 500 mls Insulin Human Lispro (Humalog) 0 units SC .MODERATE SLIDING [facility] PRN PRN Reason: Moderate Correctional Scale Last Admin: 08/26/18 13:09 Dose: 2 unit Lisinopril (Zestril) 5 mg PO BID [facility] Last Admin: 08/27/18 08:11 Dose: 5 mg Metoprolol Tartrate (Lopressor) 25 mg PO BID [facility] Last Admin: 08/27/18 08:11 Dose: 25 mg Miscellaneous Medication (Pharmacy To Dose) 1 each IVPB PRN PRN PRN Reason: . Multivitamins (Theragran) 1 tab PO DAILY [facility] Last Admin: 08/27/18 08:11 Dose: 1 tab Nifedipine (Procardia Xl) 30 mg PO DAILY [facility] Last Admin: 08/27/18 08:10 Dose: 30 mg Polyethylene Glycol (Miralax) 17 gm PO DAILY PRN PRN Reason: Constipation Last Admin: 08/25/18 14:59 Dose: 17 gm Senna/Docusate Sodium (Senokot S) 2 tab PO BID [facility] Last Admin: 08/27/18 08:12 Dose: 2 tab Sodium Chloride (Flush - Normal Saline) 10 ml IVF Q12HR [facility] Last Admin: 08/27/18 08:12 Dose: 10 ml Sodium Chloride (Flush - Normal Saline) 10 ml IVF PRN PRN PRN Reason: Saline Flush
[2018-08-28] MEDS: Metoprolol Tartrate 25 MG TAB PO SCH ×2 (05:29→20:47)
[2018-08-28] MEDS: MEROPENEM 1 GM/50 ML 1 GM in Premix Bag 1 BAG IVPB SCH ×3 (05:31→20:46)
[2018-08-28] MEDS: NIFEdipine XL 30 MG TAB PO SCH (07:59)
[2018-08-28] MEDS: glipiZIDE 5 MG TAB PO SCH (07:59)
[2018-08-28] MEDS: Aspirin 81 mg Enteric Coated Tablet PO SCH (08:00)
[2018-08-28] MEDS: Multivit, Therapeutic 1 TAB PO SCH (08:00)
[2018-08-28] MEDS: Lisinopril 5 MG TAB PO SCH ×2 (08:00→20:47)
[2018-08-28] MEDS: Senokot S 8.6-50 MG TAB PO SCH ×2 (08:00→20:47)
[2018-08-28] MEDS: Saccharomyces boulardii 250 MG CAP PO SCH (08:00)
[2018-08-28] MEDS: Ferrous Sulfate 325 MG TAB PO SCH (08:00)
[2018-08-28] MEDS: Folic Acid 1 MG TAB PO SCH (08:00)
[2018-08-28] MEDS: Ascorbic Acid 500 mg Chewable Tablet PO SCH (08:01)
[2018-08-28] MEDS: Enoxaparin Sodium 40 MG/0.4 ML SYRINGE SC SCH (08:01)
[2018-08-28] MEDS ORDERED: PROPOFOL 20 ML ONE (09:18)
[2018-08-28] MEDS ORDERED: Ketamine 50 MG/ML (10ML VIAL) ONE (09:23)
[2018-08-28] MEDS: Famotidine 20 MG TAB PO SCH ×2 (11:08→20:47)
[2018-08-28] MEDS ORDERED: PROPOFOL 200 MG/20 ML VIAL ONE (13:12)
--- NOTE | 2018-08-28 13:32 | PDOC.PN ---
- Subjective Encounter Start Date: 08/28/18 Encounter Start Time: 11:30 Ms. Hills was seen today in follow-up of Right heel ulcer, and diabetes. She does not have any complaints today. She denies heel pain, she denies chest pain or shortness of breath. - Objective Resuscitation Status - Order Detail: 08/23/18 19:27 Resuscitation Status Routine Resuscitation Status: FULL: Full Resuscitation Discussed with: POA: son Mr.Delvin Brannon Hills MAR Reviewed: Yes Vital Signs & Weight: Vital Signs (12 hours) Temp Pulse Resp BP BP Pulse Ox 08/28/18 10:35 98.4 F 72 18 132/70 100 08/28/18 08:00 97.9 F 71 18 105/69 155/63 H 91 L 08/28/18 07:59 91 105/69 Weight Admit Weight 195 lb 1.745 oz Weight 195 lb 1.745 oz I&O: 08/27/18 08/28/18 08/29/18 06:59 06:59 06:59 Intake Total 1020 820 Output Total 4075 1700 Balance -3055 -880 Result Diagrams: 08/26/18 04:59 08/26/18 04:59 Additional Labs: Accuchecks 08/28/18 08/28/18 08/27/18 11:14 04:41 20:23 POC Glucose 109 100 125 H 08/27/18 16:23 POC Glucose 77 Phys Exam - Physical Examination HEENT: PERRLA Respiratory: no wheezing, no rales, no rhonchi, clear to auscultation bilateral Cardiovascular: RRR, no significant murmur, no rub Gastrointestinal: soft, non-tender, no distention, positive bowel sounds Musculoskeletal: no edema, pulses present + chronic venous stasis changes in her lower legs, with hyperpigmented, leathery skin changes Dx/Plan (1) Hypertension Code(s): I10 - ESSENTIAL (PRIMARY) HYPERTENSION Status: Acute (2) Diabetes mellitus type 2 in obese Code(s): E11.69 - TYPE 2 DIABETES MELLITUS WITH OTHER SPECIFIED COMPLICATION; E66.9 - OBESITY, UNSPECIFIED Status: Acute (3) Ulcer of right heel Code(s): L97.419 - NON-PRS CHR ULCER OF RIGHT HEEL AND MIDFOOT W UNSP SEVERT Status: Acute Qualifiers: Non-pressure ulcer stage: with fat layer exposed Qualified Code(s): L97.412 - Non-pressure chronic ulcer of right heel and midfoot with fat layer exposed (4) Obesity (BMI 30.0-34.9) Code(s): E66.9 - OBESITY, UNSPECIFIED Status: Chronic (5) MRSA bacteremia Code(s): R78.81 - BACTEREMIA Status: Acute - Plan * Right Heel ulcer- continue local wound care, and continue IV Vancomycin and Meropenem * MRSA Bacteremia- continue IV Vancomycin , and MAUREEN is pending * HTN- blood pressure is stable * DM- blood glucose is stable .
--- NOTE | 2018-08-28 17:21 | CON ---
DATE OF CONSULTATION: HISTORY OF PRESENT ILLNESS: The patient is a 77-year-old woman, who presented for evaluation of abdominal and back discomfort. The patient also has a history of peripheral vascular disease. She has been in the hospital being treated with antibiotics and was noted to have an elevated temperature. The patient denies having any fevers or chills. The patient denies any cardiac history. She denies having any chest discomfort. PAST MEDICAL HISTORY: Significant for: 1. Hypertension. 2. Diabetes mellitus. 3. Peripheral vascular disease. SOCIAL HISTORY: Nonsmoker. ALLERGIES: NO KNOWN DRUG ALLERGIES. MEDICATION: On admission was diltiazem one tablet daily. FAMILY HISTORY: No strong family history of heart disease. PHYSICAL EXAMINATION: GENERAL: This is an obese woman, in no acute distress. VITAL SIGNS: Blood pressure of 155/63. NECK: Showed no jugular venous distention. LUNGS: Clear to auscultation. HEART: Regular rate and rhythm. Normal S1 and S2. No murmurs. ABDOMEN: Distended. EXTREMITIES: Show she has a wound on the right lower extremity. LABORATORY RESULTS: Her white blood cell count 11.8, hemoglobin 9.6, hematocrit 31.6, platelets were 302. Sodium was 137, potassium 3.4, chloride 106, bicarbonate 24, BUN 13, and creatinine 0.72. DIAGNOSTIC DATA: Her EKG revealed her to have normal sinus rhythm, nonspecific ST abnormality. Blood cultures revealed MRSA. IMPRESSION: 1. Sepsis. 2. Hypertension. 3. Diabetes mellitus. 4. Peripheral vascular disease. This patient presents with sepsis secondary to MRSA from a cardiac standpoint. She would proceed with a MAUREEN to evaluate for evidence of endocarditis. We will follow this patient with you through her hospitalization. Job ID: [id number]
[2018-08-28 17:30] LABS: Vancomycin, Trough 13.1 ug/mL
[2018-08-28] MEDS: Vancomycin HCl 1.5 GM in Sodium Chloride 0.9% 250 ML 300 ML IVPB SCH (18:02)
[2018-08-28] MEDS: Acetaminophen 325 MG TAB PO PRN (20:48)
[2018-08-28] MEDS: Insulin Glargine 10 UNITS in Pre-Filled Syringe 1 EACH SC SCH (20:49)
[2018-08-29] MEDS: MEROPENEM 1 GM/50 ML 1 GM in Premix Bag 1 BAG IVPB SCH ×3 (04:35→21:58)
[2018-08-29] MEDS: Vancomycin HCl 1.5 GM in Sodium Chloride 0.9% 250 ML 300 ML IVPB SCH ×2 (05:42→16:16)
[2018-08-29] MEDS: Saccharomyces boulardii 250 MG CAP PO SCH (08:06)
[2018-08-29] MEDS: glipiZIDE 5 MG TAB PO SCH (08:06)
[2018-08-29] MEDS: Famotidine 20 MG TAB PO SCH ×2 (08:07→21:57)
[2018-08-29] MEDS: Multivit, Therapeutic 1 TAB PO SCH (08:07)
[2018-08-29] MEDS: NIFEdipine XL 30 MG TAB PO SCH (08:07)
[2018-08-29] MEDS: Metoprolol Tartrate 25 MG TAB PO SCH ×2 (08:08→21:57)
[2018-08-29] MEDS: Lisinopril 5 MG TAB PO SCH ×2 (08:08→21:57)
[2018-08-29] MEDS: Ascorbic Acid 500 mg Chewable Tablet PO SCH (08:08)
[2018-08-29] MEDS: Folic Acid 1 MG TAB PO SCH (08:09)
[2018-08-29] MEDS: Insulin Glargine 10 UNITS in Pre-Filled Syringe 1 EACH SC SCH ×2 (08:09→21:58)
[2018-08-29] MEDS: Ferrous Sulfate 325 MG TAB PO SCH (08:09)
[2018-08-29] MEDS: Senokot S 8.6-50 MG TAB PO SCH ×2 (08:17→21:59)
[2018-08-29] MEDS: Aspirin 81 mg Enteric Coated Tablet PO SCH (08:17)
[2018-08-29] MEDS: Enoxaparin Sodium 40 MG/0.4 ML SYRINGE SC SCH (08:17)
[2018-08-29] MEDS: Acetaminophen 325 MG TAB PO PRN ×2 (10:44→18:38)
--- NOTE | 2018-08-29 13:52 | PDOC.PN ---
- Subjective Encounter Start Date: 08/29/18 Encounter Start Time: 12:45 Ms. Hills was seen today in follow-up of right diabetic foot ulcer. She does not have any complaints this afternoon. - Objective Resuscitation Status - Order Detail: 08/23/18 19:27 Resuscitation Status Routine Resuscitation Status: FULL: Full Resuscitation Discussed with: POA: son Mr.Delvin Brannon Hills MAR Reviewed: Yes Vital Signs & Weight: Vital Signs (12 hours) Temp Pulse Resp BP Pulse Ox 08/29/18 08:08 72 08/29/18 08:07 72 08/29/18 07:25 98.4 F 72 16 146/80 H 97 Weight Admit Weight 195 lb 1.745 oz Weight 195 lb 1.745 oz I&O: 08/28/18 08/29/18 08/30/18 06:59 06:59 06:59 Intake Total 820 480 Output Total 1700 1175 1200 Balance -035 -128 -1685 Result Diagrams: 08/26/18 04:59 08/26/18 04:59 Additional Labs: Accuchecks 08/29/18 08/29/18 08/28/18 11:46 04:26 19:34 POC Glucose 88 103 141 H 08/28/18 16:10 POC Glucose 107 Phys Exam - Physical Examination HEENT: PERRLA Respiratory: no wheezing, no rales, no rhonchi, clear to auscultation bilateral Cardiovascular: RRR, no significant murmur, no rub Gastrointestinal: soft, non-tender, no distention, positive bowel sounds Musculoskeletal: no edema, pulses present chronic venous stasis changes. the foot is dressed Neurological: non-focal, normal sensation, moves all 4 limbs Dx/Plan (1) Ulcer of right heel Code(s): L97.419 - NON-PRS CHR ULCER OF RIGHT HEEL AND MIDFOOT W UNSP SEVERT Status: Acute Qualifiers: Non-pressure ulcer stage: with fat layer exposed Qualified Code(s): L97.412 - Non-pressure chronic ulcer of right heel and midfoot with fat layer exposed (2) MRSA bacteremia Code(s): R78.81 - BACTEREMIA Status: Acute (3) Hypertension Code(s): I10 - ESSENTIAL (PRIMARY) HYPERTENSION Status: Acute (4) Diabetes mellitus type 2 in obese Code(s): E11.69 - TYPE 2 DIABETES MELLITUS WITH OTHER SPECIFIED COMPLICATION; E66.9 - OBESITY, UNSPECIFIED Status: Acute (5) Obesity (BMI 30.0-34.9) Code(s): E66.9 - OBESITY, UNSPECIFIED Status: Chronic - Plan * Diabetic foot ulcer- continue local wound care and IV antibiotics * MRSA Bacteremia- await the MAUREEN results- continue Vancomycin IV . * HTN- blood pressure is stable * DM- blood glucose is stable- continue Lantus and SSI
[2018-08-30] MEDS: Vancomycin HCl 1.5 GM in Sodium Chloride 0.9% 250 ML 300 ML IVPB SCH (05:03)
[2018-08-30] MEDS: MEROPENEM 1 GM/50 ML 1 GM in Premix Bag 1 BAG IVPB SCH ×3 (05:03→22:14)
[2018-08-30] MEDS: glipiZIDE 5 MG TAB PO SCH (08:26)
[2018-08-30] MEDS: Senokot S 8.6-50 MG TAB PO SCH ×2 (08:26→22:15)
[2018-08-30] MEDS: Saccharomyces boulardii 250 MG CAP PO SCH (08:27)
[2018-08-30] MEDS: Acetaminophen 325 MG TAB PO PRN (08:27)
[2018-08-30] MEDS: Metoprolol Tartrate 25 MG TAB PO SCH ×2 (08:28→22:14)
[2018-08-30] MEDS: Famotidine 20 MG TAB PO SCH ×2 (08:28→22:14)
[2018-08-30] MEDS: NIFEdipine XL 30 MG TAB PO SCH (08:28)
[2018-08-30] MEDS: Folic Acid 1 MG TAB PO SCH (08:28)
[2018-08-30] MEDS: Lisinopril 5 MG TAB PO SCH ×2 (08:29→22:14)
[2018-08-30] MEDS: Ascorbic Acid 500 mg Chewable Tablet PO SCH (08:29)
[2018-08-30] MEDS: Multivit, Therapeutic 1 TAB PO SCH (08:29)
[2018-08-30] MEDS: Ferrous Sulfate 325 MG TAB PO SCH (08:29)
[2018-08-30] MEDS: Insulin Glargine 10 UNITS in Pre-Filled Syringe 1 EACH SC SCH ×2 (08:30→22:15)
[2018-08-30 09:10] LABS: Anion Gap 12 mmol/L (10-20); BUN (Urea Nitrogen) 10 mg/dL (9.8-20.1); Calc. Creatinine Clearance 101 mL/min (70-130); Calcium 9.3 mg/dL (7.8-10.44); Carbon Dioxide 28 mmol/L (23-31); Chloride 103 mmol/L (98-107); Estimated GFR-MDRD Greater than 90; Glucose 116 mg/dL (83-110); Potassium 4.3 mmol/L (3.5-5.1); Sodium 139 mmol/L (136-145)
[2018-08-30] MEDS: Enoxaparin Sodium 40 MG/0.4 ML SYRINGE SC SCH (11:05)
[2018-08-30] MEDS: Aspirin 81 mg Enteric Coated Tablet PO SCH (11:05)
--- NOTE | 2018-08-30 12:17 | PDOC.PN ---
- Subjective Encounter Start Date: 08/30/18 Encounter Start Time: 11:00 Subjective: no sob or pain in heel now -: has not amb yet - Objective Resuscitation Status - Order Detail: 08/23/18 19:27 Resuscitation Status Routine Resuscitation Status: FULL: Full Resuscitation Discussed with: POA: son Mr.Delvin Brannon YOUNGBLOOD Reviewed: Yes Vital Signs & Weight: Vital Signs (12 hours) Temp Pulse Resp BP Pulse Ox 08/30/18 08:29 76 08/30/18 08:28 76 08/30/18 07:26 99 F 76 19 167/71 H 95 Weight Admit Weight 195 lb 1.745 oz Weight 195 lb 1.745 oz I&O: 08/29/18 08/30/18 08/31/18 06:59 06:59 06:59 Intake Total 480 Output Total 1175 4250 Balance -740 -6266 Result Diagrams: 08/30/18 08:29 08/30/18 08:29 Additional Labs: Accuchecks 08/30/18 08/29/18 08/29/18 04:21 19:54 15:36 POC Glucose 115 H 136 H 90 Phys Exam - Physical Examination HEENT: PERRLA, moist MMs Neck: no JVD, supple Respiratory: no wheezing, no rales Cardiovascular: RRR, no significant murmur Gastrointestinal: soft, non-tender, positive bowel sounds Musculoskeletal: pulses present, edema present Neurological: non-focal, moves all 4 limbs Psychiatric: normal affect, A&O x 3 Dx/Plan (1) MRSA bacteremia Code(s): R78.81 - BACTEREMIA Status: Acute (2) Sepsis Code(s): A41.9 - SEPSIS, UNSPECIFIED ORGANISM Status: Acute Qualifiers: Sepsis type: methicillin resistant Staphylococcus aureus Qualified Code(s) : A41.02 - Sepsis due to Methicillin resistant Staphylococcus aureus (3) UTI (urinary tract infection) Status: Acute Qualifiers: Urinary tract infection type: acute cystitis Hematuria presence: without hematuria Qualified Code(s): N30.00 - Acute cystitis without hematuria (4) Ulcer of right heel Code(s): L97.419 - NON-PRS CHR ULCER OF RIGHT HEEL AND MIDFOOT W UNSP SEVERT Status: Acute Qualifiers: Non-pressure ulcer stage: with fat layer exposed Qualified Code(s): L97.412 - Non-pressure chronic ulcer of right heel and midfoot with fat layer exposed Comment: s/p debridement (5) DM (diabetes mellitus), type 2, uncontrolled Code(s): E11.65 - TYPE 2 DIABETES MELLITUS WITH HYPERGLYCEMIA Status: Acute Qualifiers: Glycemic state: with hyperglycemia Qualified Code(s): E11.65 - Type 2 diabetes mellitus with hyperglycemia (6) Hypertension, uncontrolled Code(s): I10 - ESSENTIAL (PRIMARY) HYPERTENSION Status: Chronic (7) Obesity (BMI 30.0-34.9) Code(s): E66.9 - OBESITY, UNSPECIFIED Status: Chronic (8) Iron deficiency anemia Code(s): D50.9 - IRON DEFICIENCY ANEMIA, UNSPECIFIED Status: Acute Qualifiers: Iron deficiency anemia type: unspecified iron deficiency Qualified Code(s) : D50.9 - Iron deficiency anemia, unspecified (9) Folate deficiency Code(s): E53.8 - DEFICIENCY OF OTHER SPECIFIED B GROUP VITAMINS Status: Acute - Plan is on meropenem and vanc per ID adv -: continue lantus, glipizide, asp, feso4, lisinopril, lopressor and procardia -: for MAUREEN to r/o vegetations -: hemostable -: to ambulate with PT as tolerated * . Review of Systems - Medications/Allergies Allergies/Adverse Reactions: Allergies Allergy/AdvReac Type Severity Reaction Status Date / Time No Known Drug Allergies Allergy Verified 08/24/18 02:51 Medications: Current Medications Acetaminophen (Tylenol) 650 mg PO Q4H PRN PRN Reason: Headache/Fever/Mild Pain (1-3) Last Admin: 08/30/18 08:27 Dose: 650 mg Ascorbic Acid (Vitamin C) 500 mg PO DAILY REPLACED BY [facility] Last Admin: 08/30/18 08:29 Dose: 500 mg Aspirin (Ecotrin) 81 mg PO DAILY REPLACED BY [facility] Last Admin: 08/30/18 11:05 Dose: 81 mg Bisacodyl (Dulcolax) 10 mg [place] DAILYPRN PRN PRN Reason: Constipation Dextrose/Water (Dextrose 50%) 25 gm SLOW IVP PRN PRN PRN Reason: Hypoglycemia Enoxaparin Sodium (Lovenox) 40 mg SC 0900 REPLACED BY [facility] Last Admin: 08/30/18 11:05 Dose: 40 mg Famotidine (Pepcid) 20 mg PO BID REPL[facility]ED BY [facility] Last Admin: 08/30/18 08:28 Dose: 20 mg Ferrous Sulfate (Feosol) 325 mg PO QAM-WM REPLACED BY [facility] Last Admin: 08/30/18 08:29 Dose: 325 mg Folic Acid (Folvite) 1 mg PO DAILY [facility]PL[facility]ED BY [facility] Last Admin: 08/30/18 08:28 Dose: 1 mg Glipizide (Glucotrol) 5 mg PO DAILY-AC REPLACED BY [facility] Last Admin: 08/30/18 08:26 Dose: 5 mg Glucagon (Glucagon) 1 mg IM PRN PRN PRN Reason: Hypoglycemia Guaifenesin/Dextromethorphan (Robitussin Dm) 15 ml PO Q4H PRN PRN Reason: Cough Dextrose/Water (D5w) 1,000 mls @ 0 mls/hr IV .Q0M PRN PRN Reason: Hypoglycemia Insulin Glargine 10 units/ (Miscellaneous Medication) 0.1 mls @ 0 mls/hr SC BID REPLACED BY [facility] Last Admin: 08/30/18 08:30 Dose: 0.1 mls Meropenem 1 gm/ Device 50 mls @ 100 mls/hr IVPB 0400,1200,2000 REPLACED BY [facility] Last Admin: 08/30/18 11:05 Dose: 50 mls Vancomycin HCl 1.5 gm/ Sodium (Chloride) 300 mls @ 200 mls/hr IVPB 0600,1800 REPLACED BY [facility] Last Admin: 08/30/18 05:03 Dose: 300 mls Insulin Human Lispro (Humalog) 0 units SC .MODERATE SLIDING SC PRN PRN Reason: Moderate Correctional Scale Last Admin: 08/26/18 13:09 Dose: 2 unit Lisinopril (Zestril) 5 mg PO BID REPLACED BY [facility] Last Admin: 08/30/18 08:29 Dose: 5 mg Metoprolol Tartrate (Lopressor) 25 mg PO BID REPLACED BY [facility] Last Admin: 08/30/18 08:28 Dose: 25 mg Miscellaneous Medication (Pharmacy To Dose) 1 each IVPB PRN PRN PRN Reason: . Multivitamins (Theragran) 1 tab PO DAILY REPLACED BY [facility] Last Admin: 08/30/18 08:29 Dose: 1 tab Nifedipine (Procardia Xl) 30 mg PO DAILY REPLACED BY [facility] Last Admin: 08/30/18 08:28 Dose: 30 mg Polyethylene Glycol (Miralax) 17 gm PO DAILY PRN PRN Reason: Constipation Last Admin: 08/25/18 14:59 Dose: 17 gm Saccharomyces Boulardii (Florastor) 250 mg PO DAILY REPLACED BY [facility] Last Admin: 08/30/18 08:27 Dose: 250 mg Senna/Docusate Sodium (Senokot S) 2 tab PO BID REPLACED BY [facility] Last Admin: 08/30/18 08:26 Dose: 2 tab Sodium Chloride (Flush - Normal Saline) 10 ml IVF Q12HR REPLACED BY [facility] Last Admin: 08/30/18 08:39 Dose: 10 ml Sodium Chloride (Flush - Normal Saline) 10 ml IVF PRN PRN PRN Reason: Saline Flush
[2018-08-30 17:16] LABS: Vancomycin, Trough 27.8 ug/mL
[2018-08-31] MEDS: MEROPENEM 1 GM/50 ML 1 GM in Premix Bag 1 BAG IVPB SCH ×3 (04:49→21:12)
--- NOTE | 2018-08-31 08:51 | OP ---
DATE OF PROCEDURE: 08/28/2018 PROCEDURE PERFORMED: Transesophageal echocardiogram. INDICATION: A 77-year-old woman with sepsis. DESCRIPTION OF PROCEDURE: The patient was taken to the PACU. The patient was sedated by Anesthesiology. A transesophageal probe was placed into the distal esophagus and stomach. Echocardiograms were obtained. The transesophageal probe was removed. FINDINGS: 1. Normal left ventricular systolic function. 2. The aortic valve leaflets are thickened with a small echogenic mass suggestive of a vegetation. 3. Normal mitral aortic and mitral valve. 4. Mild aortic regurgitation. 5. [id number] mitral regurgitation. 6. Atherosclerotic debris in the descending aorta. Job ID: [id number]
[2018-08-31] MEDS: Folic Acid 1 MG TAB PO SCH (09:43)
[2018-08-31] MEDS: Senokot S 8.6-50 MG TAB PO SCH ×2 (09:43→21:11)
[2018-08-31] MEDS: Ferrous Sulfate 325 MG TAB PO SCH (09:44)
[2018-08-31] MEDS: glipiZIDE 5 MG TAB PO SCH (09:44)
[2018-08-31] MEDS: Lisinopril 5 MG TAB PO SCH ×2 (09:44→21:11)
[2018-08-31] MEDS: Ascorbic Acid 500 mg Chewable Tablet PO SCH (09:44)
[2018-08-31] MEDS: Aspirin 81 mg Enteric Coated Tablet PO SCH (09:44)
[2018-08-31] MEDS: Polyethylene Glycol 3350 17 GM Packet PO PRN (09:44)
[2018-08-31] MEDS: Multivit, Therapeutic 1 TAB PO SCH (09:44)
[2018-08-31] MEDS: Saccharomyces boulardii 250 MG CAP PO SCH (09:45)
[2018-08-31] MEDS: NIFEdipine XL 30 MG TAB PO SCH (09:45)
[2018-08-31] MEDS: Metoprolol Tartrate 25 MG TAB PO SCH ×2 (09:45→21:13)
[2018-08-31] MEDS: Famotidine 20 MG TAB PO SCH ×2 (09:45→21:10)
[2018-08-31] MEDS: Enoxaparin Sodium 40 MG/0.4 ML SYRINGE SC SCH (09:46)
[2018-08-31] MEDS: Insulin Glargine 10 UNITS in Pre-Filled Syringe 1 EACH SC SCH ×2 (09:46→21:12)
[2018-08-31] MEDS: Vancomycin HCl 1 GM in Premix Bag 1 BAG IVPB SCH ×2 (09:46→21:12)
[2018-08-31] MEDS: Acetaminophen 325 MG TAB PO PRN (11:42)
[2018-08-31] MEDS: HumaLOG 300 UNITS/3 ML VIAL SC PRN (12:14)
--- NOTE | 2018-08-31 14:26 | PDOC.PN ---
- Subjective Encounter Start Date: 08/31/18 Encounter Start Time: 11:00 Subjective: awake, feels better -: has not ambulated yet, awaiting PT -: no chest pain or palp - Objective Resuscitation Status - Order Detail: 08/23/18 19:27 Resuscitation Status Routine Resuscitation Status: FULL: Full Resuscitation Discussed with: POA: son Mr.Delvin Brannon YOUNGBLOOD Reviewed: Yes Vital Signs & Weight: Vital Signs (12 hours) Temp Pulse Resp BP BP Pulse Ox 08/31/18 09:45 77 156/73 H 08/31/18 09:44 77 156/73 H 08/31/18 08:00 96 08/31/18 07:57 98.7 F 77 18 156/73 H 96 Weight Admit Weight 195 lb 1.745 oz Weight 195 lb 1.745 oz I&O: 08/30/18 08/31/18 09/01/18 06:59 06:59 06:59 Intake Total 240 Output Total 4250 Balance -4250 240 Result Diagrams: 08/30/18 08:29 08/30/18 08:29 Additional Labs: Accuchecks 08/31/18 08/31/18 08/30/18 11:31 05:06 20:06 POC Glucose 217 H 117 H 189 H 08/30/18 16:02 POC Glucose 92 Phys Exam - Physical Examination HEENT: PERRLA, moist MMs Neck: no JVD, supple Respiratory: no wheezing, no rales Cardiovascular: RRR, no significant murmur Gastrointestinal: soft, non-tender, positive bowel sounds Musculoskeletal: pulses present, edema present Neurological: non-focal, moves all 4 limbs Psychiatric: normal affect, A&O x 3 Dx/Plan (1) MRSA bacteremia Code(s): R78.81 - BACTEREMIA Status: Acute (2) Sepsis Code(s): A41.9 - SEPSIS, UNSPECIFIED ORGANISM Status: Acute Qualifiers: Sepsis type: methicillin resistant Staphylococcus aureus Qualified Code(s) : A41.02 - Sepsis due to Methicillin resistant Staphylococcus aureus (3) UTI (urinary tract infection) Status: Acute Qualifiers: Urinary tract infection type: acute cystitis Hematuria presence: without hematuria Qualified Code(s): N30.00 - Acute cystitis without hematuria (4) Ulcer of right heel Code(s): L97.419 - NON-PRS CHR ULCER OF RIGHT HEEL AND MIDFOOT W UNSP SEVERT Status: Acute Qualifiers: Non-pressure ulcer stage: with fat layer exposed Qualified Code(s): L97.412 - Non-pressure chronic ulcer of right heel and midfoot with fat layer exposed Comment: s/p debridement (5) DM (diabetes mellitus), type 2, uncontrolled Code(s): E11.65 - TYPE 2 DIABETES MELLITUS WITH HYPERGLYCEMIA Status: Acute Qualifiers: Glycemic state: with hyperglycemia Qualified Code(s): E11.65 - Type 2 diabetes mellitus with hyperglycemia (6) Hypertension, uncontrolled Code(s): I10 - ESSENTIAL (PRIMARY) HYPERTENSION Status: Chronic (7) Obesity (BMI 30.0-34.9) Code(s): E66.9 - OBESITY, UNSPECIFIED Status: Chronic (8) Iron deficiency anemia Code(s): D50.9 - IRON DEFICIENCY ANEMIA, UNSPECIFIED Status: Acute Qualifiers: Iron deficiency anemia type: unspecified iron deficiency Qualified Code(s) : D50.9 - Iron deficiency anemia, unspecified (9) Folate deficiency Code(s): E53.8 - DEFICIENCY OF OTHER SPECIFIED B GROUP VITAMINS Status: Acute - Plan is on meropenem and vanc, may dc merrem if ok with -: has aortic valve veg seen on MAUREEN -: continue asp, lisinopril, lopressor, glipizide and lantus -: will need swing bed placement -: PT to mobilize as tolerated, oob to chair and in hallway * . Review of Systems - Medications/Allergies Allergies/Adverse Reactions: Allergies Allergy/AdvReac Type Severity Reaction Status Date / Time No Known Drug Allergies Allergy Verified 08/24/18 02:51 Medications: Current Medications Acetaminophen (Tylenol) 650 mg PO Q4H PRN PRN Reason: Headache/Fever/Mild Pain (1-3) Last Admin: 08/31/18 11:42 Dose: 650 mg Ascorbic Acid (Vitamin C) 500 mg PO DAILY [facility] Last Admin: 08/31/18 09:44 Dose: 500 mg Aspirin (Ecotrin) 81 mg PO DAILY [facility] Last Admin: 08/31/18 09:44 Dose: 81 mg Bisacodyl (Dulcolax) 10 mg [place] DAILYPRN PRN PRN Reason: Constipation Dextrose/Water (Dextrose 50%) 25 gm SLOW IVP PRN PRN PRN Reason: Hypoglycemia Enoxaparin Sodium (Lovenox) 40 mg SC 0900 [facility] Last Admin: 08/31/18 09:46 Dose: 40 mg Famotidine (Pepcid) 20 mg PO BID [facility] Last Admin: 08/31/18 09:45 Dose: 20 mg Ferrous Sulfate (Feosol) 325 mg PO QAM-WM [facility] Last Admin: 08/31/18 09:44 Dose: 325 mg Folic Acid (Folvite) 1 mg PO DAILY [facility] Last Admin: 08/31/18 09:43 Dose: 1 mg Glipizide (Glucotrol) 5 mg PO DAILY-AC [facility] Last Admin: 08/31/18 09:44 Dose: 5 mg Glucagon (Glucagon) 1 mg IM PRN PRN PRN Reason: Hypoglycemia Guaifenesin/Dextromethorphan (Robitussin Dm) 15 ml PO Q4H PRN PRN Reason: Cough Dextrose/Water (D5w) 1,000 mls @ 0 mls/hr IV .Q0M PRN PRN Reason: Hypoglycemia Insulin Glargine 10 units/ (Miscellaneous Medication) 0.1 mls @ 0 mls/hr SC BID [facility] Last Admin: 08/31/18 09:46 Dose: 0.1 mls Meropenem 1 gm/ Device 50 mls @ 100 mls/hr IVPB 0400,1200,2000 [facility] Last Admin: 08/31/18 11:43 Dose: 50 mls Vancomycin HCl 1 gm/ Device 200 mls @ 200 mls/hr IVPB 0800,2000 [facility] Last Admin: 08/31/18 09:46 Dose: 200 mls Insulin Human Lispro (Humalog) 0 units SC .MODERATE SLIDING SC PRN PRN Reason: Moderate Correctional Scale Last Admin: 08/31/18 12:14 Dose: 4 unit Lisinopril (Zestril) 5 mg PO BID [facility] Last Admin: 08/31/18 09:44 Dose: 5 mg Metoprolol Tartrate (Lopressor) 25 mg PO BID [facility] Last Admin: 08/31/18 09:45 Dose: 25 mg Miscellaneous Medication (Pharmacy To Dose) 1 each IVPB PRN PRN PRN Reason: . Multivitamins (Theragran) 1 tab PO DAILY [facility] Last Admin: 08/31/18 09:44 Dose: 1 tab Nifedipine (Procardia Xl) 60 mg PO DAILY [facility] Polyethylene Glycol (Miralax) 17 gm PO DAILY PRN PRN Reason: Constipation Last Admin: 08/31/18 09:44 Dose: 17 gm Saccharomyces Boulardii (Florastor) 250 mg PO DAILY [facility] Last Admin: 08/31/18 09:45 Dose: 250 mg Senna/Docusate Sodium (Senokot S) 2 tab PO BID [facility] Last Admin: 08/31/18 09:43 Dose: 2 tab Sodium Chloride (Flush - Normal Saline) 10 ml IVF Q12HR [facility] Last Admin: 08/31/18 09:46 Dose: 10 ml Sodium Chloride (Flush - Normal Saline) 10 ml IVF PRN PRN PRN Reason: Saline Flush
--- NOTE | 2018-08-31 17:03 | PRG ---
DATE OF SERVICE: 08/31/2018 SUBJECTIVE: The patient is feeling better. No chest pain. No dyspnea. No abdominal pain. Had a MAUREEN and the results are discussed below. No pain in the right foot. OBJECTIVE: VITAL SIGNS: Normalized now except for some elevation of systolic blood pressure. GENERAL: She is awake, alert, and oriented. LUNGS: The left lung has some inspiratory crackles. HEART: S1 and S2 without murmurs. ABDOMEN: Soft, not distended. EXTREMITIES: Right foot heel skin area is not as dark as we had noticed before. There is a one small area of ulceration at the center, which is quite shallow. No purulence noted. No tenderness noted. DIAGNOSTIC DATA: White cell count is at 11.8, hemoglobin 9.6, and platelets 302. Creatinine 0.63. Microbiology with again 2 sets of blood cultures from positive for MRSA. MAUREEN showed aortic valve vegetation. ASSESSMENT AND PLAN: Methicillin-resistant Staphylococcus aureus endocarditis, aortic valve. The patient will need to continue on IV vancomycin and date of therapy is October 07 with weekly labs. Vancomycin DENISE is 1 and we have to be careful with the outcome because outcomes of methicillin-resistant Staphylococcus aureus endocarditis treated with vancomycin are not as good as with for methicillin-sensitive Staphylococcus aureus endocarditis treated with beta-lactams. Job ID: [id number]
[2018-09-01] MEDS: MEROPENEM 1 GM/50 ML 1 GM in Premix Bag 1 BAG IVPB SCH (04:55)
[2018-09-01] MEDS: Vancomycin HCl 1 GM in Premix Bag 1 BAG IVPB SCH (08:41)
[2018-09-01] MEDS: Aspirin 81 mg Enteric Coated Tablet PO SCH (08:44)
[2018-09-01] MEDS: Multivit, Therapeutic 1 TAB PO SCH (08:44)
[2018-09-01] MEDS: glipiZIDE 5 MG TAB PO SCH (08:44)
[2018-09-01] MEDS: Ferrous Sulfate 325 MG TAB PO SCH (08:44)
[2018-09-01] MEDS: Metoprolol Tartrate 25 MG TAB PO SCH ×2 (08:44→22:30)
[2018-09-01] MEDS: Folic Acid 1 MG TAB PO SCH (08:45)
[2018-09-01] MEDS: Saccharomyces boulardii 250 MG CAP PO SCH (08:45)
[2018-09-01] MEDS: NIFEdipine XL 60 MG TAB PO SCH (08:45)
[2018-09-01] MEDS: Ascorbic Acid 500 mg Chewable Tablet PO SCH (08:45)
[2018-09-01] MEDS: Senokot S 8.6-50 MG TAB PO SCH ×2 (08:45→22:29)
[2018-09-01] MEDS: Lisinopril 5 MG TAB PO SCH ×2 (08:45→22:28)
[2018-09-01] MEDS: Famotidine 20 MG TAB PO SCH ×2 (08:45→22:28)
[2018-09-01] MEDS: Enoxaparin Sodium 40 MG/0.4 ML SYRINGE SC SCH (08:46)
[2018-09-01] MEDS: Insulin Glargine 10 UNITS in Pre-Filled Syringe 1 EACH SC SCH ×2 (08:46→22:29)
--- NOTE | 2018-09-01 12:13 | PDOC.PN ---
- Subjective Encounter Start Date: 09/01/18 Encounter Start Time: 11:15 Subjective: feels better, no pain or sob or palp -: has not ambulated yet - Objective Resuscitation Status - Order Detail: 08/23/18 19:27 Resuscitation Status Routine Resuscitation Status: FULL: Full Resuscitation Discussed with: POA: son Mr.Delvin Brannon YOUNGBLOOD Reviewed: Yes Vital Signs & Weight: Vital Signs (12 hours) Temp Pulse Resp BP BP Pulse Ox 09/01/18 08:45 71 155/60 H 09/01/18 08:00 98.4 F 71 22 H 155/60 H 93 L 09/01/18 04:01 95 Weight Admit Weight 195 lb 1.745 oz Weight 195 lb 1.745 oz I&O: 08/31/18 09/01/18 09/02/18 06:59 06:59 06:59 Intake Total 1840 Output Total 2850 Balance -1010 Result Diagrams: 08/30/18 08:29 08/30/18 08:29 Additional Labs: Accuchecks 09/01/18 08/31/18 08/31/18 05:51 20:07 16:42 POC Glucose 131 H 101 89 Phys Exam - Physical Examination HEENT: PERRLA, moist MMs Neck: no JVD, supple Respiratory: no wheezing, no rales Cardiovascular: RRR, no significant murmur Gastrointestinal: soft, non-tender, positive bowel sounds Musculoskeletal: pulses present, edema present Neurological: non-focal, moves all 4 limbs Dx/Plan (1) MRSA bacteremia Code(s): R78.81 - BACTEREMIA Status: Acute (2) Sepsis Code(s): A41.9 - SEPSIS, UNSPECIFIED ORGANISM Status: Acute Qualifiers: Sepsis type: methicillin resistant Staphylococcus aureus Qualified Code(s) : A41.02 - Sepsis due to Methicillin resistant Staphylococcus aureus (3) UTI (urinary tract infection) Status: Acute Qualifiers: Urinary tract infection type: acute cystitis Hematuria presence: without hematuria Qualified Code(s): N30.00 - Acute cystitis without hematuria (4) Ulcer of right heel Code(s): L97.419 - NON-PRS CHR ULCER OF RIGHT HEEL AND MIDFOOT W UNSP SEVERT Status: Acute Qualifiers: Non-pressure ulcer stage: with fat layer exposed Qualified Code(s): L97.412 - Non-pressure chronic ulcer of right heel and midfoot with fat layer exposed Comment: s/p debridement (5) DM (diabetes mellitus), type 2, uncontrolled Code(s): E11.65 - TYPE 2 DIABETES MELLITUS WITH HYPERGLYCEMIA Status: Acute Qualifiers: Glycemic state: with hyperglycemia Qualified Code(s): E11.65 - Type 2 diabetes mellitus with hyperglycemia (6) Hypertension, uncontrolled Code(s): I10 - ESSENTIAL (PRIMARY) HYPERTENSION Status: Chronic (7) Obesity (BMI 30.0-34.9) Code(s): E66.9 - OBESITY, UNSPECIFIED Status: Chronic (8) Iron deficiency anemia Code(s): D50.9 - IRON DEFICIENCY ANEMIA, UNSPECIFIED Status: Acute Qualifiers: Iron deficiency anemia type: unspecified iron deficiency Qualified Code(s) : D50.9 - Iron deficiency anemia, unspecified (9) Folate deficiency Code(s): E53.8 - DEFICIENCY OF OTHER SPECIFIED B GROUP VITAMINS Status: Acute - Plan hemostable -: is on vanc, to continue till 07 of october -: awaiting placement, is deconditioned, PT needs to mobilize as tolerated -: continue lantus, glipizide, lopressor, procardia, lisinopril, iron, folate -: may dc if placement is ready, meds reconciled for dc plan * . Review of Systems - Medications/Allergies Allergies/Adverse Reactions: Allergies Allergy/AdvReac Type Severity Reaction Status Date / Time No Known Drug Allergies Allergy Verified 08/24/18 02:51 Medications: Current Medications Acetaminophen (Tylenol) 650 mg PO Q4H PRN PRN Reason: Headache/Fever/Mild Pain (1-3) Last Admin: 08/31/18 11:42 Dose: 650 mg Ascorbic Acid (Vitamin C) 500 mg PO DAILY [facility] Last Admin: 09/01/18 08:45 Dose: 500 mg Aspirin (Ecotrin) 81 mg PO DAILY [facility] Last Admin: 09/01/18 08:44 Dose: 81 mg Bisacodyl (Dulcolax) 10 mg [place] DAILYPRN PRN PRN Reason: Constipation Dextrose/Water (Dextrose 50%) 25 gm SLOW IVP PRN PRN PRN Reason: Hypoglycemia Enoxaparin Sodium (Lovenox) 40 mg SC 0900 [facility] Last Admin: 09/01/18 08:46 Dose: 40 mg Famotidine (Pepcid) 20 mg PO BID [facility] Last Admin: 09/01/18 08:45 Dose: 20 mg Ferrous Sulfate (Feosol) 325 mg PO QAM-WM [facility] Last Admin: 09/01/18 08:44 Dose: 325 mg Folic Acid (Folvite) 1 mg PO DAILY [facility] Last Admin: 09/01/18 08:45 Dose: 1 mg Glipizide (Glucotrol) 5 mg PO DAILY-AC [facility] Last Admin: 09/01/18 08:44 Dose: 5 mg Glucagon (Glucagon) 1 mg IM PRN PRN PRN Reason: Hypoglycemia Guaifenesin/Dextromethorphan (Robitussin Dm) 15 ml PO Q4H PRN PRN Reason: Cough Dextrose/Water (D5w) 1,000 mls @ 0 mls/hr IV .Q0M PRN PRN Reason: Hypoglycemia Insulin Glargine 10 units/ (Miscellaneous Medication) 0.1 mls @ 0 mls/hr SC BID [facility] Last Admin: 09/01/18 08:46 Dose: 0.1 mls Vancomycin HCl 1 gm/ Device 200 mls @ 200 mls/hr IVPB [facility] Last Admin: 09/01/18 08:41 Dose: 200 mls Insulin Human Lispro (Humalog) 0 units SC .MODERATE SLIDING SC PRN PRN Reason: Moderate Correctional Scale Last Admin: 08/31/18 12:14 Dose: 4 unit Lisinopril (Zestril) 5 mg PO BID [facility] Last Admin: 09/01/18 08:45 Dose: 5 mg Metoprolol Tartrate (Lopressor) 25 mg PO BID [facility] Last Admin: 09/01/18 08:44 Dose: 25 mg Miscellaneous Medication (Pharmacy To Dose) 1 each IVPB PRN PRN PRN Reason: . Multivitamins (Theragran) 1 tab PO DAILY [facility] Last Admin: 09/01/18 08:44 Dose: 1 tab Nifedipine (Procardia Xl) 60 mg PO DAILY [facility] Last Admin: 09/01/18 08:45 Dose: 60 mg Polyethylene Glycol (Miralax) 17 gm PO DAILY PRN PRN Reason: Constipation Last Admin: 08/31/18 09:44 Dose: 17 gm Saccharomyces Boulardii (Florastor) 250 mg PO DAILY [facility] Last Admin: 09/01/18 08:45 Dose: 250 mg Senna/Docusate Sodium (Senokot S) 2 tab PO BID [facility] Last Admin: 09/01/18 08:45 Dose: 2 tab Sodium Chloride (Flush - Normal Saline) 10 ml IVF Q12HR [facility] Last Admin: 09/01/18 08:43 Dose: 10 ml Sodium Chloride (Flush - Normal Saline) 10 ml IVF PRN PRN PRN Reason: Saline Flush
[2018-09-01] MEDS: HumaLOG 300 UNITS/3 ML VIAL SC PRN (13:14)
--- NOTE | 2018-09-01 13:21 | SPC ---
PICC LINE PLACEMENT: Fluoroscopically guided right upper extremity PICC line. HISTORY: Patient with right upper extremity midline in need of replacement with PICC line. Radiation dosimetry is 2.8 minutes of fluoroscopy and DAP of 4.18 Gy/cm2. TECHNIQUE/FINDINGS: Informed consent was obtained. Some IV contrast was injected into the right upper extremity midline. The right basilic vein and brachial veins were opacified. The larger right brachial vein was visualized using fluoroscopic guidance. The overlying skin was prepped and draped in the usual steril e manner. A 1% lidocaine solution was used to anesthetize overlying soft tissues. A small dermatotomy was made. The right brachial vein was accessed using micropuncture set. The tract was dil ated using a 5 [place] peel-away dilator. A single lumen PICC line was cut to 37 cm and placed over the wire and into the right upper extremity brachial vein. Position was confirmed using fluoroscopy. IMPRESSION: Successful placement of right upper extremity PICC line. Transcribed Date/Time: 09/01/2018 1:35 PM
[2018-09-01 19:40] LABS: Vancomycin, Trough 22.2 ug/mL
[2018-09-01] MEDS: Vancomycin HCl 750 MG in Sodium Chloride 0.9% 250 ML 250 ML IVPB SCH (22:30)
[2018-09-02] MEDS: Vancomycin HCl 1 GM in Premix Bag 1 BAG IVPB SCH (00:06)
[2018-09-02 06:32] LABS: Cardiac Risk 3.5 (Less than 4.5)
[2018-09-02] MEDS: Folic Acid 1 MG TAB PO SCH (08:30)
[2018-09-02] MEDS: Ferrous Sulfate 325 MG TAB PO SCH (08:30)
[2018-09-02] MEDS: glipiZIDE 5 MG TAB PO SCH (08:30)
[2018-09-02] MEDS: Famotidine 20 MG TAB PO SCH ×2 (08:31→21:55)
[2018-09-02] MEDS: Multivit, Therapeutic 1 TAB PO SCH (08:31)
[2018-09-02] MEDS: Aspirin 81 mg Enteric Coated Tablet PO SCH (08:31)
[2018-09-02] MEDS: Senokot S 8.6-50 MG TAB PO SCH ×2 (08:32→21:55)
[2018-09-02] MEDS: Lisinopril 5 MG TAB PO SCH ×2 (08:32→21:54)
[2018-09-02] MEDS: Ascorbic Acid 500 mg Chewable Tablet PO SCH (08:32)
[2018-09-02] MEDS: Metoprolol Tartrate 25 MG TAB PO SCH ×2 (08:33→21:55)
[2018-09-02] MEDS: NIFEdipine XL 60 MG TAB PO SCH (08:33)
[2018-09-02] MEDS: Saccharomyces boulardii 250 MG CAP PO SCH (08:34)
[2018-09-02] MEDS: Insulin Glargine 10 UNITS in Pre-Filled Syringe 1 EACH SC SCH ×2 (08:34→21:55)
[2018-09-02] MEDS: Enoxaparin Sodium 40 MG/0.4 ML SYRINGE SC SCH (08:34)
[2018-09-02] MEDS: Vancomycin HCl 750 MG in Sodium Chloride 0.9% 250 ML 250 ML IVPB SCH ×2 (10:12→22:00)
--- NOTE | 2018-09-02 12:56 | PDOC.PN ---
- Subjective Encounter Start Date: 09/02/18 Encounter Start Time: 11:30 Subjective: no sob, participated with PT yesterday, amb 10ft with rw -: no abd pain - Objective Resuscitation Status - Order Detail: 08/23/18 19:27 Resuscitation Status Routine Resuscitation Status: FULL: Full Resuscitation Discussed with: POA: son Mr.Delvin Brannon YOUNGBLOOD Reviewed: Yes Vital Signs & Weight: Vital Signs (12 hours) Temp Pulse Resp BP BP Pulse Ox 09/02/18 08:33 80 146/72 H 09/02/18 08:32 80 137/74 09/02/18 08:00 98.8 F 74 16 146/72 H 94 L Weight Admit Weight 195 lb 1.745 oz Weight 195 lb 1.745 oz I&O: 09/01/18 09/02/18 09/03/18 06:59 06:59 06:59 Intake Total 1840 1760 Output Total 2850 2600 Balance -1010 -840 Result Diagrams: 08/30/18 08:29 08/30/18 08:29 Additional Labs: Accuchecks 09/02/18 09/02/18 09/01/18 11:26 06:48 19:48 POC Glucose 119 H 142 H 97 09/01/18 09/01/18 16:51 13:15 POC Glucose 113 H 153 H Phys Exam - Physical Examination HEENT: PERRLA, moist MMs Neck: no JVD, supple Respiratory: no wheezing, no rales Cardiovascular: RRR, no significant murmur Gastrointestinal: soft, non-tender, positive bowel sounds Musculoskeletal: no edema, pulses present Neurological: non-focal, moves all 4 limbs Psychiatric: normal affect, A&O x 3 Dx/Plan (1) MRSA bacteremia Code(s): R78.81 - BACTEREMIA Status: Acute (2) Sepsis Code(s): A41.9 - SEPSIS, UNSPECIFIED ORGANISM Status: Resolved Qualifiers: Sepsis type: methicillin resistant Staphylococcus aureus Qualified Code(s) : A41.02 - Sepsis due to Methicillin resistant Staphylococcus aureus (3) UTI (urinary tract infection) Status: Resolved Qualifiers: Urinary tract infection type: acute cystitis Hematuria presence: without hematuria Qualified Code(s): N30.00 - Acute cystitis without hematuria (4) Ulcer of right heel Code(s): L97.419 - NON-PRS CHR ULCER OF RIGHT HEEL AND MIDFOOT W UNSP SEVERT Status: Acute Qualifiers: Non-pressure ulcer stage: with fat layer exposed Qualified Code(s): L97.412 - Non-pressure chronic ulcer of right heel and midfoot with fat layer exposed Comment: s/p debridement (5) DM (diabetes mellitus), type 2, uncontrolled Code(s): E11.65 - TYPE 2 DIABETES MELLITUS WITH HYPERGLYCEMIA Status: Acute Qualifiers: Glycemic state: with hyperglycemia Qualified Code(s): E11.65 - Type 2 diabetes mellitus with hyperglycemia Comment: stable now (6) Hypertension, uncontrolled Code(s): I10 - ESSENTIAL (PRIMARY) HYPERTENSION Status: Chronic (7) Obesity (BMI 30.0-34.9) Code(s): E66.9 - OBESITY, UNSPECIFIED Status: Chronic (8) Iron deficiency anemia Code(s): D50.9 - IRON DEFICIENCY ANEMIA, UNSPECIFIED Status: Acute Qualifiers: Iron deficiency anemia type: unspecified iron deficiency Qualified Code(s) : D50.9 - Iron deficiency anemia, unspecified (9) Folate deficiency Code(s): E53.8 - DEFICIENCY OF OTHER SPECIFIED B GROUP VITAMINS Status: Acute - Plan is on vanc, lantus, glipizide, asp, lipitor -: lopressor, procardia xl, lisinopril, iron, folic acid -: has deconditioning, to mobilize more with PT -: awaiting placement, prefer swing bed if she agrees/rehab/snf -: hemostable * . Review of Systems - Medications/Allergies Allergies/Adverse Reactions: Allergies Allergy/AdvReac Type Severity Reaction Status Date / Time No Known Drug Allergies Allergy Verified 08/24/18 02:51 Medications: Current Medications Acetaminophen (Tylenol) 650 mg PO Q4H PRN PRN Reason: Headache/Fever/Mild Pain (1-3) Last Admin: 08/31/18 11:42 Dose: 650 mg Ascorbic Acid (Vitamin C) 500 mg PO DAILY [facility] Last Admin: 09/02/18 08:32 Dose: 500 mg Aspirin (Ecotrin) 81 mg PO DAILY [facility] Last Admin: 09/02/18 08:31 Dose: 81 mg Atorvastatin Calcium (Lipitor) 20 mg PO HS [facility] Bisacodyl (Dulcolax) 10 mg [place] DAILYPRN PRN PRN Reason: Constipation Dextrose/Water (Dextrose 50%) 25 gm SLOW IVP PRN PRN PRN Reason: Hypoglycemia Enoxaparin Sodium (Lovenox) 40 mg SC 0900 [facility] Last Admin: 09/02/18 08:34 Dose: 40 mg Famotidine (Pepcid) 20 mg PO BID [facility] Last Admin: 09/02/18 08:31 Dose: 20 mg Ferrous Sulfate (Feosol) 325 mg PO QAM-WM [facility] Last Admin: 09/02/18 08:30 Dose: 325 mg Folic Acid (Folvite) 1 mg PO DAILY [facility] Last Admin: 09/02/18 08:30 Dose: 1 mg Glipizide (Glucotrol) 5 mg PO DAILY-AC [facility] Last Admin: 09/02/18 08:30 Dose: 5 mg Glucagon (Glucagon) 1 mg IM PRN PRN PRN Reason: Hypoglycemia Guaifenesin/Dextromethorphan (Robitussin Dm) 15 ml PO Q4H PRN PRN Reason: Cough Dextrose/Water (D5w) 1,000 mls @ 0 mls/hr IV .Q0M PRN PRN Reason: Hypoglycemia Insulin Glargine 10 units/ (Miscellaneous Medication) 0.1 mls @ 0 mls/hr SC BID [facility] Last Admin: 09/02/18 08:34 Dose: 0.1 mls Vancomycin HCl 750 mg/ Sodium (Chloride) 250 mls @ 250 mls/hr IVPB Q12HR [facility] Last Admin: 09/02/18 10:12 Dose: 250 mls Insulin Human Lispro (Humalog) 0 units SC .MODERATE SLIDING SC PRN PRN Reason: Moderate Correctional Scale Last Admin: 09/01/18 13:14 Dose: 2 unit Lisinopril (Zestril) 5 mg PO BID [facility] Last Admin: 09/02/18 08:32 Dose: 5 mg Metoprolol Tartrate (Lopressor) 25 mg PO BID [facility] Last Admin: 09/02/18 08:33 Dose: 25 mg Miscellaneous Medication (Pharmacy To Dose) 1 each IVPB PRN PRN PRN Reason: . Multivitamins (Theragran) 1 tab PO DAILY [facility] Last Admin: 09/02/18 08:31 Dose: 1 tab Nifedipine (Procardia Xl) 60 mg PO DAILY [facility] Last Admin: 09/02/18 08:33 Dose: 60 mg Polyethylene Glycol (Miralax) 17 gm PO DAILY PRN PRN Reason: Constipation Last Admin: 08/31/18 09:44 Dose: 17 gm Saccharomyces Boulardii (Florastor) 250 mg PO DAILY [facility] Last Admin: 09/02/18 08:34 Dose: 250 mg Senna/Docusate Sodium (Senokot S) 2 tab PO BID [facility] Last Admin: 09/02/18 08:32 Dose: 2 tab Sodium Chloride (Flush - Normal Saline) 10 ml IVF Q12HR [facility] Last Admin: 09/02/18 08:34 Dose: 10 ml Sodium Chloride (Flush - Normal Saline) 10 ml IVF PRN PRN PRN Reason: Saline Flush
[2018-09-02] MEDS: Acetaminophen 325 MG TAB PO PRN (16:23)
[2018-09-02] MEDS: Polyethylene Glycol 3350 17 GM Packet PO PRN (16:24)
[2018-09-02] MEDS: Atorvastatin Calcium 20 MG TAB PO SCH (21:59)
[2018-09-03] MEDS: Acetaminophen 325 MG TAB PO PRN ×3 (06:14→20:42)
[2018-09-03] MEDS: Famotidine 20 MG TAB PO SCH ×2 (08:04→20:40)
[2018-09-03] MEDS: Ascorbic Acid 500 mg Chewable Tablet PO SCH (08:04)
[2018-09-03] MEDS: Senokot S 8.6-50 MG TAB PO SCH ×2 (08:04→20:39)
[2018-09-03] MEDS: Ferrous Sulfate 325 MG TAB PO SCH (08:05)
[2018-09-03] MEDS: glipiZIDE 5 MG TAB PO SCH (08:05)
[2018-09-03] MEDS: Saccharomyces boulardii 250 MG CAP PO SCH (08:05)
[2018-09-03] MEDS: Metoprolol Tartrate 25 MG TAB PO SCH ×2 (08:05→20:39)
[2018-09-03] MEDS: Aspirin 81 mg Enteric Coated Tablet PO SCH (08:05)
[2018-09-03] MEDS: NIFEdipine XL 60 MG TAB PO SCH (08:06)
[2018-09-03] MEDS: Folic Acid 1 MG TAB PO SCH (08:06)
[2018-09-03] MEDS: Lisinopril 5 MG TAB PO SCH ×2 (08:06→20:39)
[2018-09-03] MEDS: Multivit, Therapeutic 1 TAB PO SCH (08:06)
[2018-09-03] MEDS: Insulin Glargine 10 UNITS in Pre-Filled Syringe 1 EACH SC SCH ×2 (08:07→20:39)
[2018-09-03] MEDS: Enoxaparin Sodium 40 MG/0.4 ML SYRINGE SC SCH (08:08)
[2018-09-03 08:22] LABS: #Basophils 0.1 thou/uL (0.0-0.2); #Eosinphils 0.3 thou/uL (0.0-0.7); #Lymphocytes 1.6 thou/uL (1.20-3.40); #Neutrophils 7.9 thou/uL (1.40-6.50); %Basophils 0.9 % (0.0-1.0); %Eosinophils 2.6 % (0.0-10.0); %Lymphocytes 14.8 % (21.0-51.0); %Monocytes 9.1 % (0.0-10.0); %Neutrophils 72.5 % (42.0-75.0); Hemoglobin 10.4 g/dL (12.0-16.0); Mean Corpuscular Hemoglobin 24.4 pg (27.0-31.0); Mean Corpuscular Volume 76.4 fL (78.0-98.0); Platelet Count 505 thou/uL (130-400); RBC Distribution Width 14.2 % (11.5-14.5); Red Blood Cell (RBC) Count 4.24 mill/uL (4.20-5.40); White Blood Cell (WBC) Count 10.8 thou/uL (4.8-10.8)
[2018-09-03 08:37] LABS: Vancomycin, Trough 18.2 ug/mL
[2018-09-03 08:42] LABS: ALT (SGPT) 19 U/L (8-55); AST (SGOT) 18 U/L (5-34); Albumin 3.2 g/dL (3.4-4.8); Alkaline Phosphatase 105 U/L (40-150); Anion Gap 14 mmol/L (10-20); BUN (Urea Nitrogen) 14 mg/dL (9.8-20.1); Bilirubin, Total 0.4 mg/dL (0.2-1.2); CRP (Inflammatory) 11.24 mg/dL (= or < 0.5); Calc. Creatinine Clearance 95 mL/min (70-130); Calcium 9.6 mg/dL (7.8-10.44); Carbon Dioxide 26 mmol/L (23-31); Chloride 103 mmol/L (98-107); Estimated GFR-MDRD Greater than 90; Glucose 134 mg/dL (83-110); Potassium 4.4 mmol/L (3.5-5.1); Protein, Total 7.2 g/dL (6.0-8.3); Sodium 139 mmol/L (136-145)
[2018-09-03] MEDS: Vancomycin HCl 750 MG in Sodium Chloride 0.9% 250 ML 250 ML IVPB SCH ×2 (09:22→20:35)
--- NOTE | 2018-09-03 11:00 | PDOC.PN ---
- Subjective Encounter Start Date: 09/03/18 Encounter Start Time: 09:30 Subjective: awake, watching tv -: no abd pain or sob -: had to have her billings back due to retention of 1600ml urine - Objective Resuscitation Status - Order Detail: 08/23/18 19:27 Resuscitation Status Routine Resuscitation Status: FULL: Full Resuscitation Discussed with: POA: son Mr.Delvin Brannon YOUNGBLOOD Reviewed: Yes Vital Signs & Weight: Vital Signs (12 hours) Temp Pulse Resp BP BP Pulse Ox 09/03/18 08:06 69 130/67 09/03/18 07:18 98.6 F 69 16 130/67 98 Weight Admit Weight 195 lb 1.745 oz Weight 195 lb 1.745 oz I&O: 09/02/18 09/03/18 09/04/18 06:59 06:59 06:59 Intake Total 1760 1350 Output Total 2600 100 Balance -840 1250 Result Diagrams: 09/03/18 08:07 09/03/18 08:07 Additional Labs: Accuchecks 09/03/18 09/02/18 09/02/18 04:22 20:24 16:35 POC Glucose 113 H 101 100 09/02/18 09/02/18 16:20 11:26 POC Glucose 87 119 H Phys Exam - Physical Examination HEENT: PERRLA, moist MMs Neck: no JVD, supple Respiratory: no wheezing, no rales Cardiovascular: RRR, no significant murmur Gastrointestinal: soft, non-tender, positive bowel sounds Musculoskeletal: no edema, pulses present Neurological: non-focal, moves all 4 limbs Psychiatric: normal affect, A&O x 3 Dx/Plan (1) MRSA bacteremia Code(s): R78.81 - BACTEREMIA Status: Acute (2) Sepsis Code(s): A41.9 - SEPSIS, UNSPECIFIED ORGANISM Status: Resolved Qualifiers: Sepsis type: methicillin resistant Staphylococcus aureus Qualified Code(s) : A41.02 - Sepsis due to Methicillin resistant Staphylococcus aureus (3) UTI (urinary tract infection) Status: Resolved Qualifiers: Urinary tract infection type: acute cystitis Hematuria presence: without hematuria Qualified Code(s): N30.00 - Acute cystitis without hematuria (4) Ulcer of right heel Code(s): L97.419 - NON-PRS CHR ULCER OF RIGHT HEEL AND MIDFOOT W UNSP SEVERT Status: Acute Qualifiers: Non-pressure ulcer stage: with fat layer exposed Qualified Code(s): L97.412 - Non-pressure chronic ulcer of right heel and midfoot with fat layer exposed Comment: s/p debridement (5) DM (diabetes mellitus), type 2, uncontrolled Code(s): E11.65 - TYPE 2 DIABETES MELLITUS WITH HYPERGLYCEMIA Status: Acute Qualifiers: Glycemic state: with hyperglycemia Qualified Code(s): E11.65 - Type 2 diabetes mellitus with hyperglycemia Comment: stable now (6) Hypertension, uncontrolled Code(s): I10 - ESSENTIAL (PRIMARY) HYPERTENSION Status: Chronic (7) Obesity (BMI 30.0-34.9) Code(s): E66.9 - OBESITY, UNSPECIFIED Status: Chronic (8) Iron deficiency anemia Code(s): D50.9 - IRON DEFICIENCY ANEMIA, UNSPECIFIED Status: Acute Qualifiers: Iron deficiency anemia type: unspecified iron deficiency Qualified Code(s) : D50.9 - Iron deficiency anemia, unspecified (9) Folate deficiency Code(s): E53.8 - DEFICIENCY OF OTHER SPECIFIED B GROUP VITAMINS Status: Acute (10) Urinary retention Code(s): R33.9 - RETENTION OF URINE, UNSPECIFIED Status: Acute Comment: recurrent, back with billings now - Plan is on vanc, asp, lopressor, lisinopril, lantus, glipizide, lipitor, procard -: awaiting placement, may dc if ready -: hemostable -: to ambulate more with PT, barely amb 20ft with PT * . Review of Systems - Medications/Allergies Allergies/Adverse Reactions: Allergies Allergy/AdvReac Type Severity Reaction Status Date / Time No Known Drug Allergies Allergy Verified 08/24/18 02:51 Medications: Current Medications Acetaminophen (Tylenol) 650 mg PO Q4H PRN PRN Reason: Headache/Fever/Mild Pain (1-3) Last Admin: 09/03/18 06:14 Dose: 650 mg Ascorbic Acid (Vitamin C) 500 mg PO DAILY [facility] Last Admin: 09/03/18 08:04 Dose: 500 mg Aspirin (Ecotrin) 81 mg PO DAILY [facility] Last Admin: 09/03/18 08:05 Dose: 81 mg Atorvastatin Calcium (Lipitor) 20 mg PO [facility] Last Admin: 09/02/18 21:59 Dose: 20 mg Bisacodyl (Dulcolax) 10 mg [place] DAILYPRN PRN PRN Reason: Constipation Last Admin: 09/03/18 08:06 Dose: 10 mg Dextrose/Water (Dextrose 50%) 25 gm SLOW IVP PRN PRN PRN Reason: Hypoglycemia Enoxaparin Sodium (Lovenox) 40 mg SC 0900 [facility] Last Admin: 09/03/18 08:08 Dose: 40 mg Famotidine (Pepcid) 20 mg PO BID [facility] Last Admin: 09/03/18 08:04 Dose: 20 mg Ferrous Sulfate (Feosol) 325 mg PO QAM-WM [facility] Last Admin: 09/03/18 08:05 Dose: 325 mg Folic Acid (Folvite) 1 mg PO DAILY [facility] Last Admin: 09/03/18 08:06 Dose: 1 mg Glipizide (Glucotrol) 5 mg PO DAILY-AC [facility] Last Admin: 09/03/18 08:05 Dose: 5 mg Glucagon (Glucagon) 1 mg IM PRN PRN PRN Reason: Hypoglycemia Guaifenesin/Dextromethorphan (Robitussin Dm) 15 ml PO Q4H PRN PRN Reason: Cough Dextrose/Water (D5w) 1,000 mls @ 0 mls/hr IV .Q0M PRN PRN Reason: Hypoglycemia Insulin Glargine 10 units/ (Miscellaneous Medication) 0.1 mls @ 0 mls/hr SC BID [facility] Last Admin: 09/03/18 08:07 Dose: 0.1 mls Vancomycin HCl 750 mg/ Sodium (Chloride) 250 mls @ 250 mls/hr IVPB Q12HR [facility] Last Admin: 09/03/18 09:22 Dose: 250 mls Insulin Human Lispro (Humalog) 0 units SC .MODERATE SLIDING SC PRN PRN Reason: Moderate Correctional Scale Last Admin: 09/01/18 13:14 Dose: 2 unit Lisinopril (Zestril) 5 mg PO BID [facility] Last Admin: 09/03/18 08:06 Dose: 5 mg Metoprolol Tartrate (Lopressor) 25 mg PO BID [facility] Last Admin: 09/03/18 08:05 Dose: 25 mg Miscellaneous Medication (Pharmacy To Dose) 1 each IVPB PRN PRN PRN Reason: . Multivitamins (Theragran) 1 tab PO DAILY [facility] Last Admin: 09/03/18 08:06 Dose: 1 tab Nifedipine (Procardia Xl) 60 mg PO DAILY [facility] Last Admin: 09/03/18 08:06 Dose: 60 mg Polyethylene Glycol (Miralax) 17 gm PO DAILY PRN PRN Reason: Constipation Last Admin: 09/02/18 16:24 Dose: 17 gm Saccharomyces Boulardii (Florastor) 250 mg PO DAILY [facility] Last Admin: 09/03/18 08:05 Dose: 250 mg Senna/Docusate Sodium (Senokot S) 2 tab PO BID [facility] Last Admin: 09/03/18 08:04 Dose: 2 tab Sodium Chloride (Flush - Normal Saline) 10 ml IVF Q12HR [facility] Last Admin: 09/03/18 08:07 Dose: 10 ml Sodium Chloride (Flush - Normal Saline) 10 ml IVF PRN PRN PRN Reason: Saline Flush
[2018-09-03] MEDS: Atorvastatin Calcium 20 MG TAB PO SCH (20:40)
[2018-09-04] MEDS: Folic Acid 1 MG TAB PO SCH (09:23)
[2018-09-04] MEDS: Lisinopril 5 MG TAB PO SCH (09:23)
[2018-09-04] MEDS: Ferrous Sulfate 325 MG TAB PO SCH (09:23)
[2018-09-04] MEDS: Multivit, Therapeutic 1 TAB PO SCH (09:24)
[2018-09-04] MEDS: Senokot S 8.6-50 MG TAB PO SCH (09:24)
[2018-09-04] MEDS: Ascorbic Acid 500 mg Chewable Tablet PO SCH (09:24)
[2018-09-04] MEDS: NIFEdipine XL 60 MG TAB PO SCH (09:24)
[2018-09-04] MEDS: Aspirin 81 mg Enteric Coated Tablet PO SCH (09:24)
[2018-09-04] MEDS: Enoxaparin Sodium 40 MG/0.4 ML SYRINGE SC SCH (09:24)
[2018-09-04] MEDS: Saccharomyces boulardii 250 MG CAP PO SCH (09:24)
[2018-09-04] MEDS: Famotidine 20 MG TAB PO SCH (09:24)
[2018-09-04] MEDS: Metoprolol Tartrate 25 MG TAB PO SCH (09:24)
[2018-09-04] MEDS: Insulin Glargine 10 UNITS in Pre-Filled Syringe 1 EACH SC SCH (09:24)
[2018-09-04] MEDS: glipiZIDE 5 MG TAB PO SCH (09:24)
[2018-09-04] MEDS: Vancomycin HCl 750 MG in Sodium Chloride 0.9% 250 ML 250 ML IVPB SCH (09:25)
[2018-09-04] MEDS: Acetaminophen 325 MG TAB PO PRN (14:54)
[2018-09-04 16:27] VITALS: BP 151/65; TEMP 98.4
--- NOTE | 2018-09-05 04:55 | DIS ---
DATE OF ADMISSION: 08/23/2018 DATE OF DISCHARGE: 09/04/2018 PRIMARY CARE PROVIDER: Marco Antonio Candelaria MD DISCHARGE DIAGNOSES: 1. Sepsis. 2. Methicillin-resistant Staphylococcus aureus bacteremia. 3. Methicillin-resistant Staphylococcus aureus urinary tract infection. 4. Aortic valve endocarditis. 5. Urinary retention. 6. Right heel ulcer, status post debridement. 7. Uncontrolled hypertension. CONSULTATIONS DURING THIS HOSPITALIZATION: 1. Infectious Diseases, Lowell Daniels MD. 2. Urology, Tariq Martinez MD. 3. Cardiology, Moisés Aguilera MD. 4. General Surgery, John Peterson MD. CONDITION OF PATIENT ON THE DAY OF DISCHARGE: Stable. I assessed Ms. Hills on the day of discharge. She denies any chest pain or shortness of breath. Vital signs are stable. S1 and S2 are heard, regular. Lungs are clear to auscultation bilaterally. HOSPITAL COURSE: Ms. Hills is a pleasant 78-year-old lady, who was admitted to [facility] for sepsis on August 23, 2018. She had a right heel ulcer. She was seen by General Surgery Service and underwent debridement. Blood cultures grew MRSA. Urine culture also grew MRSA and Aerococcus urinae. She was seen by Infectious Diseases and Cardiology Services. She underwent transesophageal echocardiogram, which showed thickened aortic valve leaflets with a small echogenic mass suggestive of vegetation. She was treated with vancomycin. She had PICC line placed. She has been accepted to [facility] for further management. She also had urinary retention and had Ortiz catheter placed. She is being discharged to [facility] with Ortiz catheter. She will need Urology Service followup. DISCHARGE MEDICATIONS: 1. Vitamin C 500 mg daily. 2. Aspirin 81 mg daily. 3. Pepcid 20 mg 2 times a day. 4. Ferrous sulfate 325 mg daily. 5. Folic acid 1 mg daily. 6. Glipizide 5 mg daily. 7. Lantus insulin 10 units 2 times a day. 8. Lisinopril 5 mg 2 times a day. 9. Lopressor 25 mg 2 times a day. 10. Multivitamins one tablet daily. 11. Procardia XL 60 mg daily. 12. Florastor 250 mg daily. 13. Senokot-S two tablets 2 times a day. 14. Vancomycin 1 g 2 times a day till October 07, 2018, and MiraLAX 17 g daily as needed. On September 03, [place] [address], hemoglobin 10.4, platelet count 505,000, normal electrolytes and normal creatinine. Many thanks for allowing me to participate in your patient's care. Please feel free to contact me with any questions or concerns. DISCHARGE DESTINATION: [facility]. TIME SPENT: Total amount of time spent coordinating this discharge: 33 minutes. Job ID: [id number]
--- NOTE | 2018-09-05 14:07 | EKG ---
Test Reason : Blood Pressure : / mmHG Vent. Rate : 099 BPM Atrial Rate : 099 BPM P-R Int : 150 ms QRS Dur : 068 ms QT Int : 320 ms P-R-T Axes : 029 -16 -17 degrees QTc Int : 410 ms Normal sinus rhythm Possible Left atrial enlargement Nonspecific ST abnormality Abnormal ECG Confirmed by CHELA LAWSON ([id number]), map editor SHANNEN CHAIREZ ([id number]) on 09/05/2018 2:07:06 PM Referred By: Confirmed By:CHELA LAWSON
== END 2018-09-04 17:06 | DRG 871 ==
LOC: ERS 15:26 → T4-A 17:40
PROVIDERS: ADMIT Internal Medicine; ATTEND Internal Medicine
PROC: 0HDMXZZ Extraction of Right Foot Skin, External Approach (ICD-10-PCS; principal; 2018-08-25)
PROC: 0T9B70Z Drainage of Bladder with Drainage Device, Via Natural or Artificial Opening (ICD-10-PCS; 2018-08-25)
PROC: B24BZZ4 Ultrasonography of Heart with Aorta, Transesophageal (ICD-10-PCS; 2018-08-28)
PROC: 02HV33Z Insertion of Infusion Device into Superior Vena Cava, Percutaneous Approach (ICD-10-PCS; 2018-09-01)
PROC: B5181ZA Fluoroscopy of Superior Vena Cava using Low Osmolar Contrast, Guidance (ICD-10-PCS; 2018-09-01)
DX: A41.02 Sepsis due to Methicillin resistant Staphylococcus aureus (principal); I33.0 Acute and subacute infective endocarditis; N30.00 Acute cystitis without hematuria; L97.412 Non-pressure chronic ulcer of right heel and midfoot with fat layer exposed; E11.65 Type 2 diabetes mellitus with hyperglycemia; E66.9 Obesity, unspecified; D50.9 Iron deficiency anemia, unspecified; E53.8 Deficiency of other specified B group vitamins; E87.6 Hypokalemia; I87.8 Other specified disorders of veins; I12.9 Hypertensive chronic kidney disease with stage 1 through stage 4 chronic kidney disease, or unspecified chronic kidney disease; N18.2 Chronic kidney disease, stage 2 (mild); K59.00 Constipation, unspecified; E11.40 Type 2 diabetes mellitus with diabetic neuropathy, unspecified; B95.4 Other streptococcus as the cause of diseases classified elsewhere; I08.0 Rheumatic disorders of both mitral and aortic valves; E11.51 Type 2 diabetes mellitus with diabetic peripheral angiopathy without gangrene; R33.9 Retention of urine, unspecified; Z68.31 Body mass index [BMI] 31.0-31.9, adult; Z79.899 Other long term (current) drug therapy; E11.621 Type 2 diabetes mellitus with foot ulcer
CPT/HCPCS: 36415; 36416; 36569; 51701; 71045; 80048; 80053; 80061; 80202; 81003; 81015; 82607; 82728; 82746; 83036; 83540; 83550; 83605; 83690; 83735; 83880; 85014; 85018; 85025; 85652; 86140; 87040; 87077; 87086; 87149; 87186; 90471; 90670; 93005; 93306; 93312; 93923; 93970; 96365; 96367; 96375; A4353; C1751; G0009; J1650; J1825; J2185; J2270; J2543; J2704; J3370; J7050

== ENCOUNTER 2019-02-09 11:12 | Emergency (ER) | payer MEDICARE, OTHER ==
--- NOTE | 2019-02-09 12:08 | CT ---
EXAM: CT brain without contrast HISTORY: Altered mental status COMPARISON: None TECHNIQUE: Multiple contiguous axial images were obtained and a CT of the brain without contrast. FINDINGS: There are scattered hypodensities in the subcortical and periventricular white matter consi stent with small vessel ischemic disease. There is no evidence of hydrocephalus, intracranial hemorrhage, or extra-axial fluid collection. The calvarium and overlying soft tissues are unremarkable. The visualized paranasal sinuses and masto id air cells are well aerated. IMPRESSION: No evidence of acute intracranial abnormality
--- NOTE | 2019-02-09 12:18 | RAD ---
EXAM: CHEST ONE VIEW HISTORY: Altered mental status. COMPARISON: 08/23/2018 FINDINGS: Cardiac silhouette is magnified by projection but stable in size. Elevation right hemidiaphragm is pr esent. There is patchy density overlying the right hilar region which is more prominent than on the prior exam. This may be related to volume loss due to elevation right hemidiaphragm. Mild increase in perihilar interstitial densities on the left are present. No obvious pleural effusion is seen. Vascular calcifications are again seen in the thoracic aorta. Degenerative changes are again seen in the spine. IMPRESSION: 1. Patchy density medial right lung base probably related to superposition of right hilar vasculature and atelectasis secondary to elevation right hemidiaphragm. Focal area of pneumonitis cannot be entirely excluded, and follow-up PA and lateral chest x-ray is recommended. 2. Mild nonspecific increase in left perihilar interstitial densities which is not significantly malone ged compared to the prior exam.
[2019-02-09 12:20] LABS: Bilirubin Negative (Negative); Blood, Urine Large (Negative); Glucose, Urine (Dipstick) Negative (Negative); Leukocyte Large (Negative); Nitrite Negative (Negative); Protein, Urine (Dipstick) 100 mg/dL (Neg-Trace); Urobilinogen 0.2 mg/dL (Less than 2)
[2019-02-09 12:26] LABS: Bacteria/HPF 4+ HPF (None Seen); Clarity Turbid (Clear); WBC/HPF Greater Than 50 HPF (0-3)
[2019-02-09 12:34] LABS: ALT (SGPT) 26 U/L (8-55); AST (SGOT) 47 U/L (5-34); Albumin 3.5 g/dL (3.4-4.8); Alkaline Phosphatase 119 U/L (40-110); Anion Gap 17 mmol/L (10-20); BUN (Urea Nitrogen) 28 mg/dL (9.8-20.1); CK (CPK) 36 U/L (29-168); Calc. Creatinine Clearance 0 mL/min (70-130); Calcium 9.8 mg/dL (7.8-10.44); Carbon Dioxide 24 mmol/L (23-31); Chloride 100 mmol/L (98-107); Estimated GFR-MDRD 44; Globulin 4.9 g/dL (2.4-3.5); Glucose 267 mg/dL (83-110); Potassium 5.1 mmol/L (3.5-5.1); Protein, Total 8.4 g/dL (6.0-8.3); Sodium 136 mmol/L (136-145)
[2019-02-09 12:41] LABS: Hemoglobin 10.2 g/dL (12.0-16.0); Mean Corpuscular Hemoglobin 25.1 pg (27.0-31.0); Mean Corpuscular Volume 78.4 fL (78.0-98.0); Mean Platelet Volume 8.8 fL (7.4-10.4); Platelet Count 289 thou/uL (130-400); RBC Distribution Width 15.2 % (11.5-14.5); Red Blood Cell (RBC) Count 4.08 mill/uL (4.20-5.40); White Blood Cell (WBC) Count 12.7 thou/uL (4.8-10.8)
[2019-02-09 12:42] LABS: Anisocytosis SLIGHT = 6-15 cells (100X) (0-5/hpf); Band 3 % (5-11); Lymphocytes 7 % (21-51); MDiff Complete? YES; Monocytes 3 % (0-10); Neutrophil 87 % (42-75); Ovalocytes SLIGHT = 2-5 cells (100X) (0-1/hpf); Platelet Morphology Comment Appears Adequate
[2019-02-09] MEDS ORDERED: cefTRIAXone\\ROCEPHIN 1 GM VIAL ONE (12:53)
== END 2019-02-09 12:44 ==
LOC: ERS 11:12
DX: N39.0 Urinary tract infection, site not specified (principal); I10 Essential (primary) hypertension
CPT/HCPCS: 36416; 70450; 71045; 80053; 81003; 81015; 82550; 84443; 84484; 85025; 87086; A4353; J0696

== ENCOUNTER 2019-02-09 17:10 | Inpatient (IN) | payer MEDICARE, OTHER ==
[2019-02-09 18:08] LABS: #Lymphocytes 0.9 thou/uL (1.20-3.40); #Monocytes 0.8 thou/uL (0.11-0.59); %Basophils 0.4 % (0.0-1.0); %Lymphocytes 7.3 % (21.0-51.0); %Monocytes 7.1 % (0.0-10.0); %Neutrophils 85.2 % (42.0-75.0); Hemoglobin 10.2 g/dL (12.0-16.0); Mean Corpuscular HGB CONC 31.8 g/dL (32.0-36.0); Mean Corpuscular Volume 78.5 fL (78.0-98.0); Mean Platelet Volume 7.7 fL (7.4-10.4); Platelet Count 295 thou/uL (130-400); Red Blood Cell (RBC) Count 4.07 mill/uL (4.20-5.40); White Blood Cell (WBC) Count 11.8 thou/uL (4.8-10.8)
[2019-02-09 18:34] LABS: ALT (SGPT) 31 U/L (8-55); AST (SGOT) 36 U/L (5-34); Albumin 3.7 g/dL (3.4-4.8); Alkaline Phosphatase 124 U/L (40-110); Anion Gap 15 mmol/L (10-20); BUN (Urea Nitrogen) 29 mg/dL (9.8-20.1); Bilirubin, Total 0.7 mg/dL (0.2-1.2); Calc. Creatinine Clearance 0 mL/min (70-130); Carbon Dioxide 25 mmol/L (23-31); Chloride 102 mmol/L (98-107); Estimated GFR-MDRD 49; Globulin 4.3 g/dL (2.4-3.5); Glucose 173 mg/dL (83-110); Potassium 3.9 mmol/L (3.5-5.1); Sodium 138 mmol/L (136-145)
[2019-02-09] MEDS ORDERED: Ondansetron ODT 4 MG TAB SL PRN (22:28)
[2019-02-09] MEDS ORDERED: Ondansetron PF 4 MG/2 ML Vial IVP PRN (22:28)
[2019-02-09] MEDS ORDERED: Sodium Chloride 0.9% 1,000 ML IV SCH (22:28)
[2019-02-09] MEDS ORDERED: cefTRIAXone\\ROCEPHIN 1 GM in Sodium Chloride 0.9% 100 ML IVPB SCH (22:30)
[2019-02-09 22:40] VITALS: BMI 30.4
[2019-02-10] MEDS ORDERED: FLU VACC TS2019-20(65YR UP)/PF 180 MCG/0.5 ML SYRINGE IM ONE (09:00)
[2019-02-10] MEDS ORDERED: Polyethylene Glycol 3350 17 GM Packet PO PRN (10:22)
[2019-02-10] MEDS ORDERED: Dextrose 50% Abboject 50 ML SYRINGE IVP PRN (10:24)
[2019-02-10] MEDS ORDERED: Insulin Regular 300 UNITS/3 ML VIAL SC PRN (10:24)
[2019-02-10] MEDS ORDERED: Dextrose 5% in Water 1,000 ML IV PRN (10:24)
--- NOTE | 2019-02-10 12:07 | HP ---
REASON FOR ADMISSION: Fever, change in mental status. HISTORY OF PRESENT ILLNESS: Ms. Hills is a 78-year-old Afro-[place] female with past medical history of diabetes, hypertension, history of MRSA bacteremia with endocarditis, was found to have fever at the intermediate, also having change in mental status. The patient was more lethargic and according to intermediate, the patient was also hypoxic, so because of these symptoms, the patient was sent to the hospital. Initially, she was evaluated and found to have urinary tract infection with mild dehydration. The patient was given fluids and Rocephin and the ER physician felt the patient was stable hemodynamically as well as clinically, so he released her. She went back, but intermediate found the patient was still hypoxic and had more fever of 102, so she was sent back to the ER again and she was re-evaluated in the ER and found to have fever. Cultures were already done before and she was given a dose of Rocephin as well as IV fluids and admitted for further evaluation and management. The patient was hemodynamically stable at the time of admission. The patient received a dose of Levaquin and vancomycin. Rocephin was given earlier. Chest x-ray did not reveal any acute changes. PAST MEDICAL HISTORY: 1. Hypertension. 2. Diabetes mellitus. 3. History of MRSA bacteremia. 4. History of UTI. 5. History of endocarditis. 6. History of right heel ulcer. 7. History of urinary retention. 8. Venous insufficiency. PAST SURGICAL HISTORY: Nothing significant. CURRENT MEDICATIONS: The patient is on: 1. Tylenol p.r.n. 2. Vitamin C 500 mg daily. 3. Aspirin 81 mg daily. 4. Pepcid 20 mg daily. 5. Ferrous sulfate 325 mg daily. 6. Gabapentin 300 mg b.i.d. 7. Glipizide 5 mg daily. 8. Lantus insulin 10 units b.i.d. 9. Lisinopril 5 mg b.i.d. 10. Metoprolol 25 b.i.d. 11. Multivitamin daily. 12. Procardia XL 60 mg daily. 13. MiraLAX 17 g daily. 14. Senokot daily p.r.n. 15. Lamisil cream daily. ALLERGIES: NKDA. FAMILY HISTORY: Nothing contributory. SOCIAL HISTORY: The patient is a resident of [facility]. No history of smoking. No history of alcohol. The patient is nonambulatory. PHYSICAL EXAMINATION: GENERAL: The patient is alert, awake, not well oriented. VITAL SIGNS: Temperature 102.3, pulse 108, respirations 20, blood pressure 109/ 60. HEENT: Head is normocephalic and atraumatic. Pupils are equal and reactive. Nasopharynx is pale and dry. Hard and soft palate, no lesions. SKIN: Skin turgor decreased. sacral pressure sore +, stage 2 NECK: Supple. No JVD. LUNGS: Bilateral air entry present. No rales, no rhonchi. HEART: S1-S2 regular. ABDOMEN: Soft, no distention. No tenderness. Normal bowel sounds present. RECTAL: Deferred. CENTRAL NERVOUS SYSTEM: No new focal deficits. EXTREMITIES: No edema. LABORATORY DATA: CBC shows WBC 11.8, hemoglobin 10, hematocrit 31, platelets 295. Metabolic panel; sodium 138, potassium 3.9, chloride 102, CO2 of 23, BUN 20, creatinine 1.2, glucose 173, alkaline phosphatase 124, BNP 201. Lactic acid 1.4. Chest x-ray negative. CT of the brain; no acute intracranial abnormality. EKG showed normal sinus rhythm, no acute ST-T changes seen. ASSESSMENT: 1. Urinary tract infection, rule out sepsis. 2. Acute kidney injury. 3. Diabetes mellitus. 4. Hypertension. 5. History of methicillin-resistant Staphylococcus aureus bacteremia and endocarditis. 6. History of urinary retention. 7. sacral decubitus, stage 2. 8. Hyperlipidemia. PLAN: 1. Vital signs q.4 hours. 2. Activity as tolerated. 3. Allergies, NKDA. 4. IV fluids, normal saline 80 mL/h. 5. Rocephin 2 g IV piggyback daily. 6. Continue intermediate medications. 7. Accu-Chek a.c. and at bedtime. 8. Sliding scale mild with regular insulin. 9. Blood cultures. 10. Urine cultures. 11. Infectious Disease consult by Dr. Daniels. Job ID: [id number] [facility]
[2019-02-10] MEDS: Acetaminophen 325 MG TAB PO PRN ×2 (15:18→22:23)
[2019-02-10] MEDS: Sodium Chloride 0.9% 1,000 ML IV SCH (17:30)
--- NOTE | 2019-02-10 19:34 | CON ---
DATE OF CONSULTATION: 02/10/2019 REASON FOR CONSULTATION: Fever and chills. HISTORY OF PRESENT ILLNESS: A 78-year-old, whom I had seen in August 2018, when she presented with a history of type 2 diabetes, diffuse abdominal pain, and constipation. She had an MRSA bacteremia, which was found to be continuous. MAUREEN demonstrated a small vegetation, I believe, in the aortic valve. She received 6 weeks of IV vancomycin, and now, she presented sent from [facility] because of altered mental status associated with chills and fever. She did not have any reported headaches. No seizure activity. No vomiting or bleeding. No diarrhea. The patient voids in the briefs. No urinary tract symptoms were reported. Currently, Ms. Hills is in the room. She is awake. She is oriented times self and place, could not tell me the date. The main thing that she complains about is neck pain in the left side, which reportedly has been present for a long time. She cannot be more precise. She denies any visual symptoms, sore throat, odynophagia, or dysphagia. No back pain. No dyspnea. No cough. No abdominal pain, although she did have a little bit of tenderness in the physical examination as described below. 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 ALLERGIES: NONE. 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 Never smoker. FAMILY HISTORY: Noncontributory. CURRENT MEDICATIONS: 1. Tylenol. 2. Vitamin C. 3. Ecotrin. 4. Ceftriaxone. 5. Pepcid. 6. Feosol. 7. Neurontin. 8. Glucotrol. 9. Zestril. 10. Lopressor. 11. Theragran. 12. MiraLAX. 13. Senokot. 14. Terbinafine. PHYSICAL EXAMINATION: VITAL SIGNS: T-max 101.3, she is now 99.4. Blood pressure 140/70, pulse 86, respirations 20, O2 saturation 97%. SKIN: She has a little area of breakdown in the presacral region, stage II, very small. Peripheral IV access. She is urinating in the briefs. LYMPHATICS: She has no lymphadenopathy. HEENT: Ocular movements are conjugate. Alopecia. Pale conjunctivae. Oral cavity with no [place] teeth remaining. NECK: Supple. No jugular vein distention. There is tenderness in the left side of the posterior neck region. No thyromegaly. LUNGS: Symmetric air entry. HEART: S1 and S2. Regular rate. No S3 or S4. ABDOMEN: Soft. Mildly distended. There is tenderness in the left lower abdominal region. : Question of bladder distention. MUSCULOSKELETAL: No joint inflammatory activity. EXTREMITIES: Pulses are 1+ in dorsalis pedis. She is able to move extremities, but is diffusely weak. NEUROLOGIC: She knows her name, and she knew she was in the hospital, but could not tell me the date. Recollection of events and ability to give her cogent account are limited. LABORATORY DATA: White cell count now is 11.8, hemoglobin 10.2, MCV 78, platelets 295, 85% neutrophils. Creatinine 1.28, GFR 49, AST 36, ALT 31, alkaline phosphatase 124, albumin 3.7, globulin 4.3. BNP 201. Urinalysis with greater than 50 wbc's, pH is 5.0, protein 100. Microbiology have 2 sets of blood cultures with pending results. Influenza testing was negative for antigen. Brain CT, no acute intracranial abnormality. Chest x-ray; there is a patchy density in medial right lung base, could be an artifact. Nonspecific perihilar interstitial densities, which are not changed from prior exam. ASSESSMENT: 1. History of endocarditis, methicillin-resistant Staphylococcus aureus, aortic valve, recently treated. 2. Fever with neck pain, abnormal urinalysis with positive urine culture with pending susceptibilities. 3. Possible urinary retention or another intra-abdominal inflammatory process. DISCUSSION: Differential diagnosis includes invasive UTI with urinary retention versus recrudescence of endocarditis as well as the possibility of cervical spine infection. We will monitor the blood cultures, and we will go ahead and repeat her transthoracic echo and check postvoid residual for management of bladder retention, may need a CT stone protocol or just a CT with contrast whenever her renal function improves. May need a repeat MAUREEN. May need an MRI of the C-spine depending on clinical course. Job ID: [id number]
[2019-02-10] MEDS: Senokot S 8.6-50 MG TAB PO SCH (20:46)
[2019-02-10] MEDS: Gabapentin 300 MG CAP PO SCH (20:46)
[2019-02-10] MEDS: Insulin Glargine 10 UNITS in Pre-Filled Syringe 1 EACH SC SCH (20:47)
[2019-02-10] MEDS ORDERED: Famotidine 20 MG TAB PO SCH (21:00)
[2019-02-10] MEDS: Metoprolol Tartrate 25 MG TAB PO SCH ×2 (21:56→22:23)
[2019-02-10] MEDS: Lisinopril 5 MG TAB PO SCH ×2 (21:56→22:22)
[2019-02-10] MEDS: cefTRIAXone\\ROCEPHIN 2 GM in Sodium Chloride 0.9% 100 ML IVPB SCH (22:23)
[2019-02-11] MEDS: Sodium Chloride 0.9% 1,000 ML IV SCH ×2 (03:15→16:51)
[2019-02-11 06:26] LABS: #Eosinphils 0.1 thou/uL (0.0-0.7); #Lymphocytes 1.1 thou/uL (1.20-3.40); #Monocytes 0.8 thou/uL (0.11-0.59); #Neutrophils 4.5 thou/uL (1.40-6.50); %Basophils 0.5 % (0.0-1.0); %Eosinophils 1.9 % (0.0-10.0); %Lymphocytes 16.8 % (21.0-51.0); %Monocytes 12.7 % (0.0-10.0); %Neutrophils 68.2 % (42.0-75.0); Hemoglobin 9.6 g/dL (12.0-16.0); Mean Corpuscular HGB CONC 31.2 g/dL (32.0-36.0); Mean Corpuscular Hemoglobin 24.6 pg (27.0-31.0); Mean Platelet Volume 7.3 fL (7.4-10.4); Platelet Count 252 thou/uL (130-400); RBC Distribution Width 14.8 % (11.5-14.5); White Blood Cell (WBC) Count 6.5 thou/uL (4.8-10.8)
[2019-02-11 06:46] LABS: Anion Gap 11 mmol/L (10-20); BUN (Urea Nitrogen) 18 mg/dL (9.8-20.1); Calc. Creatinine Clearance 82 mL/min (70-130); Calcium 9.3 mg/dL (7.8-10.44); Carbon Dioxide 26 mmol/L (23-31); Chloride 108 mmol/L (98-107); Estimated GFR-MDRD 90; Glucose 115 mg/dL (83-110); Potassium 3.8 mmol/L (3.5-5.1); Sodium 141 mmol/L (136-145)
[2019-02-11] MEDS: NIFEdipine XL 60 MG TAB PO SCH (08:42)
[2019-02-11] MEDS: Lisinopril 5 MG TAB PO SCH ×2 (08:42→20:37)
[2019-02-11] MEDS: Ascorbic Acid 500 mg Chewable Tablet PO SCH (08:42)
[2019-02-11] MEDS: Multivit, Therapeutic 1 TAB PO SCH (08:43)
[2019-02-11] MEDS: Metoprolol Tartrate 25 MG TAB PO SCH ×2 (08:43→20:37)
[2019-02-11] MEDS: Aspirin 81 mg Enteric Coated Tablet PO SCH (08:43)
[2019-02-11] MEDS: Gabapentin 300 MG CAP PO SCH ×2 (08:43→20:37)
[2019-02-11] MEDS: glipiZIDE 5 MG TAB PO SCH (08:43)
[2019-02-11] MEDS: Ferrous Sulfate 325 MG TAB PO SCH (08:43)
[2019-02-11] MEDS: Senokot S 8.6-50 MG TAB PO SCH ×2 (08:51→20:38)
[2019-02-11] MEDS: Insulin Glargine 10 UNITS in Pre-Filled Syringe 1 EACH SC SCH ×2 (08:52→20:38)
[2019-02-11] MEDS: Terbinafine 1% 30 GM TUBE TOP SCH (12:58)
--- NOTE | 2019-02-11 12:59 | PQF ---
YADIEL NAIDU, NANCI Amaya MD [id number] CLINICAL DOCUMENTATION IMPROVEMENT CLARIFICATION FORM: ICD-10 Updated PLEASE DO AN ADDENDUM TO THE PROGRESS NOTE WITH ANY DOCUMENTATION UPDATES OR ADDITIONS AND CARRY THROUGH TO DC SUMMARY. THANK YOU. DATE: 02/11/2019 ATTN: DR. Dewey THOMAS Please exercise your independent, professional judgment in responding to the clarification form. Clinical indicators are provided on the bottom of this form for your review. Please check appropriate box(es): [ ] Sepsis due to: UTI [ ] Sepsis NOT due to UTI [ ] Severe sepsis with acute organ dysfunction of: (Examples: respiratory failure, encephalopathy, acute kidney failure, other) [ ] Septic Shock [ ] Localized infection without sepsis [ ] Other diagnosis [ y] Unable to determine In addition, please specify: Present on Admission (POA): [ y ] Yes [ ] No [ ] Unable to determine For continuity of documentation, please document condition throughout progress notes and discharge summary. Thank You. CLINICAL INDICATORS - SIGNS / SYMPTOMS / LABS / RESULTS AND LOCATION IN MR 02/09 ED PHYSICIAN DX: SEPSIS, UTI; WBC 11.8; RESP 23 02/09 TEMP 102.3 02/10 TEMP 101.3 02/11 TEMP 100.2 02/10 H&P (THADAREDDY) FOUND TO HAVE FEVER AND CHANGE IN MENTAL STATUS AT CUSTODIAL. ASSESSMENT: 1) URINARY TRACT INFECTION, RULE OUT SEPSIS RISK: HX MRSA BACTEREMIA W ENDOCARDITIS, DX UTI, ADVANCED AGE (78), CUSTODIAL RESIDENT (H&P/THADAREDDY) 02/10 TREATMENTS: INFECTIOUS DISEASE CONSULT (02/10/MILDRED) ROCEPHIN IV (02/10-PRESENT) THANK YOU! CARLOS EDUARDO (This form is maintained as a part of the permanent medical record) 2014 [employer]. All Rights Reserved CLEO [email or web address] [phone] MTD[facility]ot
[2019-02-11] MEDS: Acetaminophen 325 MG TAB PO PRN (16:51)
[2019-02-11] MEDS ORDERED: Famotidine 20 MG TAB PO SCH (21:00)
[2019-02-11] MEDS: cefTRIAXone\\ROCEPHIN 2 GM in Sodium Chloride 0.9% 100 ML IVPB SCH (22:09)
[2019-02-12 06:29] LABS: Anion Gap 9 mmol/L (10-20); BUN (Urea Nitrogen) 9 mg/dL (9.8-20.1); Calc. Creatinine Clearance 96 mL/min (70-130); Calcium 9.2 mg/dL (7.8-10.44); Carbon Dioxide 27 mmol/L (23-31); Chloride 108 mmol/L (98-107); Estimated GFR-MDRD Greater than 90; Glucose 86 mg/dL (83-110); Potassium 3.4 mmol/L (3.5-5.1); Sodium 141 mmol/L (136-145)
[2019-02-12 06:30] LABS: Mean Corpuscular HGB CONC 31.8 g/dL (32.0-36.0); Mean Corpuscular Hemoglobin 25.3 pg (27.0-31.0); Mean Corpuscular Volume 79.5 fL (78.0-98.0); Mean Platelet Volume 7.7 fL (7.4-10.4); Platelet Count 253 thou/uL (130-400); RBC Distribution Width 14.8 % (11.5-14.5); Red Blood Cell (RBC) Count 3.93 mill/uL (4.20-5.40); White Blood Cell (WBC) Count 6.5 thou/uL (4.8-10.8)
[2019-02-12] MEDS: Sodium Chloride 0.9% 1,000 ML IV SCH (08:00)
[2019-02-12] MEDS: glipiZIDE 5 MG TAB PO SCH (08:00)
[2019-02-12] MEDS: Ferrous Sulfate 325 MG TAB PO SCH (08:00)
[2019-02-12] MEDS: Multivit, Therapeutic 1 TAB PO SCH (08:01)
[2019-02-12] MEDS: Metoprolol Tartrate 25 MG TAB PO SCH ×2 (08:01→20:09)
[2019-02-12] MEDS: Gabapentin 300 MG CAP PO SCH ×2 (08:01→20:10)
[2019-02-12] MEDS: NIFEdipine XL 60 MG TAB PO SCH (08:01)
[2019-02-12] MEDS: Ascorbic Acid 500 mg Chewable Tablet PO SCH (08:01)
[2019-02-12] MEDS: Aspirin 81 mg Enteric Coated Tablet PO SCH (08:01)
[2019-02-12] MEDS: Senokot S 8.6-50 MG TAB PO SCH ×2 (08:02→20:10)
[2019-02-12] MEDS: Terbinafine 1% 30 GM TUBE TOP SCH (08:02)
[2019-02-12] MEDS: Lisinopril 5 MG TAB PO SCH ×2 (08:02→20:10)
[2019-02-12 08:10] LABS: Band 5 % (5-11); Hypochromia SLIGHT = 6-15 cells (100X) (0-5/hpf); Lymphocytes 38 % (21-51); MDiff Complete? YES; Microcytosis SLIGHT = 6-15 cells (100X) (0-5/hpf); Monocytes 6 % (0-10); Neutrophil 49 % (42-75); Platelet Morphology Comment Appears Adequate; Polychromasia SLIGHT = 2-3 cells (100X) (0-2/hpf); Reactive Lymphocytes 2 % (0-10)
[2019-02-12] MEDS: Insulin Glargine 10 UNITS in Pre-Filled Syringe 1 EACH SC SCH (10:37)
--- NOTE | 2019-02-12 16:36 | ULT ---
Bilateral renal ultrasound CLINICAL INDICATION: Urolithiasis COMPARISON: None FINDINGS: Right kidney: No solid mass, or hydronephrosis. Left kidney: No solid mass, or hydronephrosis. Urinary bladder: Incompletely distended, limiting assessment. Indwelling catheter is present. IMPRESSION: Unremarkable exam.
[2019-02-12] MEDS: Acetaminophen 325 MG TAB PO PRN (20:08)
[2019-02-12] MEDS: Famotidine 20 MG TAB PO SCH (20:10)
[2019-02-12] MEDS: cefTRIAXone\\ROCEPHIN 2 GM in Sodium Chloride 0.9% 100 ML IVPB SCH (22:46)
[2019-02-13 06:25] LABS: Hemoglobin A1c 5.5 % (4.0-6.0)
[2019-02-13 06:36] LABS: Anion Gap 15 mmol/L (10-20); BUN (Urea Nitrogen) 10 mg/dL (9.8-20.1); Calc. Creatinine Clearance 88 mL/min (70-130); Calcium 9.4 mg/dL (7.8-10.44); Carbon Dioxide 26 mmol/L (23-31); Chloride 106 mmol/L (98-107); Estimated GFR-MDRD Greater than 90; Glucose 150 mg/dL (83-110); Potassium 3.6 mmol/L (3.5-5.1); Sodium 143 mmol/L (136-145)
[2019-02-13] MEDS: Ferrous Sulfate 325 MG TAB PO SCH (08:10)
[2019-02-13] MEDS: NIFEdipine XL 60 MG TAB PO SCH (08:11)
[2019-02-13] MEDS: Multivit, Therapeutic 1 TAB PO SCH (08:11)
[2019-02-13] MEDS: Senokot S 8.6-50 MG TAB PO SCH ×2 (08:11→21:05)
[2019-02-13] MEDS: Lisinopril 5 MG TAB PO SCH ×2 (08:11→21:04)
[2019-02-13] MEDS: Metoprolol Tartrate 25 MG TAB PO SCH ×2 (08:12→21:05)
[2019-02-13] MEDS: Aspirin 81 mg Enteric Coated Tablet PO SCH (08:12)
[2019-02-13] MEDS: Acetaminophen 325 MG TAB PO PRN ×2 (08:12→21:05)
[2019-02-13] MEDS: Famotidine 20 MG TAB PO SCH ×2 (08:12→21:04)
[2019-02-13] MEDS: Gabapentin 300 MG CAP PO SCH ×2 (08:12→21:04)
[2019-02-13] MEDS: Ascorbic Acid 500 mg Chewable Tablet PO SCH (08:12)
[2019-02-13] MEDS: Terbinafine 1% 30 GM TUBE TOP SCH (08:13)
[2019-02-13] MEDS: cefTRIAXone\\ROCEPHIN 2 GM in Sodium Chloride 0.9% 100 ML IVPB SCH (22:41)
[2019-02-14 05:54] LABS: #Basophils 0.1 thou/uL (0.0-0.2); #Eosinphils 0.3 thou/uL (0.0-0.7); #Lymphocytes 1.8 thou/uL (1.20-3.40); #Monocytes 0.7 thou/uL (0.11-0.59); %Eosinophils 4.1 % (0.0-10.0); %Lymphocytes 25.6 % (21.0-51.0); %Monocytes 10.3 % (0.0-10.0); %Neutrophils 59.1 % (42.0-75.0); Hemoglobin 9.8 g/dL (12.0-16.0); Mean Corpuscular HGB CONC 31.9 g/dL (32.0-36.0); Mean Corpuscular Volume 78.4 fL (78.0-98.0); Mean Platelet Volume 7.3 fL (7.4-10.4); Platelet Count 320 thou/uL (130-400); RBC Distribution Width 15.1 % (11.5-14.5); Red Blood Cell (RBC) Count 3.93 mill/uL (4.20-5.40); White Blood Cell (WBC) Count 6.9 thou/uL (4.8-10.8)
[2019-02-14 06:11] LABS: Anion Gap 13 mmol/L (10-20); BUN (Urea Nitrogen) 8 mg/dL (9.8-20.1); Calc. Creatinine Clearance 96 mL/min (70-130); Calcium 9.3 mg/dL (7.8-10.44); Carbon Dioxide 28 mmol/L (23-31); Chloride 107 mmol/L (98-107); Estimated GFR-MDRD Greater than 90; Glucose 137 mg/dL (83-110); Potassium 3.6 mmol/L (3.5-5.1); Sodium 144 mmol/L (136-145)
[2019-02-14] MEDS: Ferrous Sulfate 325 MG TAB PO SCH (08:43)
[2019-02-14] MEDS: Famotidine 20 MG TAB PO SCH ×2 (08:44→20:44)
[2019-02-14] MEDS: Lisinopril 5 MG TAB PO SCH ×2 (08:44→20:46)
[2019-02-14] MEDS: Gabapentin 300 MG CAP PO SCH ×2 (08:44→20:44)
[2019-02-14] MEDS: NIFEdipine XL 60 MG TAB PO SCH (08:44)
[2019-02-14] MEDS: Aspirin 81 mg Enteric Coated Tablet PO SCH (08:44)
[2019-02-14] MEDS: Multivit, Therapeutic 1 TAB PO SCH (08:45)
[2019-02-14] MEDS: Ascorbic Acid 500 mg Chewable Tablet PO SCH (08:45)
[2019-02-14] MEDS: Senokot S 8.6-50 MG TAB PO SCH ×2 (08:45→20:44)
[2019-02-14] MEDS: Metoprolol Tartrate 25 MG TAB PO SCH ×2 (08:45→20:44)
[2019-02-14] MEDS: Acetaminophen 325 MG TAB PO PRN (08:45)
[2019-02-14] MEDS: Terbinafine 1% 30 GM TUBE TOP SCH (08:46)
--- NOTE | 2019-02-14 15:24 | PRG ---
DATE OF SERVICE: 02/14/2019 SUBJECTIVE: Awake, alert, and oriented. Denies any headaches. No cough. No dyspnea or abdominal pain. Ortiz catheter has been removed. She is voiding. OBJECTIVE: VITAL SIGNS: T-max 100.2 three days ago, since then afebrile; blood pressure normal; O2 saturation 98%. GENERAL: Awake, alert, oriented, pleasant. LUNGS: Clear. HEART: S1 and S2, regular rate. ABDOMEN: Soft. Question of bladder distention. LABORATORY DATA: White cell count 6.9, hemoglobin 9.8, platelets 320, 59% neutrophils. Her creatinine is 0.64. Microbiology with E coli from 02/09, which was resistant to quinolones and Bactrim. Echocardiogram; EF 55% to 60%, thickened aortic valve, [id number] aortic regurgitation. ASSESSMENT AND DISCUSSION: Prior endocarditis, fever with urinary retention, and Escherichia coli with resistance to quinolones. Currently, on Rocephin and I do not see any medication that would have anticholinergic side effects. I would advise in and out catheterization with frequent bladder scans and see if she will improve her voiding. May try Flomax as well. Consider transition to oral cefpodoxime or Vantin 400 mg twice daily for about 10 days. If she continues to have urinary retention documented, then we will need to continue with in and out catheterization protocol. My fear is that in the longterm they are not going to carry out catheterizations as often as it is needed, which would place her at risk for recurrent urinary tract infections with invasive features. Job ID: [id number]
[2019-02-14] MEDS: cefTRIAXone\\ROCEPHIN 2 GM in Sodium Chloride 0.9% 100 ML IVPB SCH (23:39)
[2019-02-15] MEDS: Metoprolol Tartrate 25 MG TAB PO SCH (08:36)
[2019-02-15] MEDS: NIFEdipine XL 60 MG TAB PO SCH (08:36)
[2019-02-15] MEDS: Aspirin 81 mg Enteric Coated Tablet PO SCH (08:36)
[2019-02-15] MEDS: Senokot S 8.6-50 MG TAB PO SCH (08:37)
[2019-02-15] MEDS: Lisinopril 5 MG TAB PO SCH (08:37)
[2019-02-15] MEDS: Gabapentin 300 MG CAP PO SCH (08:38)
[2019-02-15] MEDS: Famotidine 20 MG TAB PO SCH (08:38)
[2019-02-15] MEDS: Ascorbic Acid 500 mg Chewable Tablet PO SCH (08:38)
[2019-02-15] MEDS: Acetaminophen 325 MG TAB PO PRN (08:38)
[2019-02-15] MEDS: Ferrous Sulfate 325 MG TAB PO SCH (08:38)
[2019-02-15] MEDS: Multivit, Therapeutic 1 TAB PO SCH (08:38)
[2019-02-15] MEDS: Terbinafine 1% 30 GM TUBE TOP SCH (08:39)
[2019-02-15 11:42] VITALS: BP 120/67; TEMP 97.9
== END 2019-02-15 11:56 | DRG 689 ==
LOC: ERS 17:10 → T4-A 18:38
PROVIDERS: ADMIT Internal Medicine; ATTEND Internal Medicine
DX: N39.0 Urinary tract infection, site not specified (principal); R40.2342 Coma scale, best motor response, flexion withdrawal, at arrival to emergency department; G93.41 Metabolic encephalopathy; N17.9 Acute kidney failure, unspecified; I10 Essential (primary) hypertension; E11.9 Type 2 diabetes mellitus without complications; L89.152 Pressure ulcer of sacral region, stage 2; E78.5 Hyperlipidemia, unspecified; I35.1 Nonrheumatic aortic (valve) insufficiency; R40.2132 Coma scale, eyes open, to sound, at arrival to emergency department; R40.2242 Coma scale, best verbal response, confused conversation, at arrival to emergency department
CPT/HCPCS: 36415; 36416; 51701; 70450; 71045; 76770; 80048; 80053; 81003; 81015; 82550; 83036; 83605; 83880; 84443; 84484; 85025; 87040; 87077; 87086; 87186; 87804; 93005; 93306; 96360; 96361; 96365; 96367; A4353; J0696; J1815; J1956; J3370; J3490

== ENCOUNTER 2019-05-23 12:56 | Inpatient (IN) | payer MEDICARE, MEDICAID ==
[2019-05-23 13:56] LABS: Bilirubin Negative (Negative); Blood, Urine Moderate (Negative); Glucose, Urine (Dipstick) Negative (Negative); Leukocyte Large (Negative); Nitrite Positive (Negative); Protein, Urine (Dipstick) 100 mg/dL (Neg-Trace); Urobilinogen 0.2 mg/dL (Less than 2)
[2019-05-23 14:00] LABS: Clarity Turbid (Clear)
[2019-05-23 14:07] LABS: #Basophils 0.1 thou/uL (0.0-0.2); #Eosinphils 0.2 thou/uL (0.0-0.7); #Lymphocytes 2.7 thou/uL (1.20-3.40); #Monocytes 0.5 thou/uL (0.11-0.59); %Basophils 1.6 % (0.0-1.0); %Eosinophils 3.7 % (0.0-10.0); %Lymphocytes 41.2 % (21.0-51.0); %Monocytes 7.8 % (0.0-10.0); %Neutrophils 45.8 % (42.0-75.0); Hemoglobin 12.5 g/dL (12.0-16.0); Mean Corpuscular HGB CONC 31.4 g/dL (32.0-36.0); Mean Corpuscular Hemoglobin 25.3 pg (27.0-31.0); Mean Corpuscular Volume 80.4 fL (78.0-98.0); Mean Platelet Volume 7.8 fL (7.4-10.4); Platelet Count 341 thou/uL (130-400); RBC Distribution Width 15.5 % (11.5-14.5); Red Blood Cell (RBC) Count 4.93 mill/uL (4.20-5.40); White Blood Cell (WBC) Count 6.5 thou/uL (4.8-10.8)
[2019-05-23 14:10] LABS: Bacteria/HPF 4+ HPF (None Seen); Triple Phosphate Crystal 2+ HPF (None Seen); WBC/HPF Greater Than 50 HPF (0-3)
[2019-05-23 14:35] LABS: ALT (SGPT) 8 U/L (8-55); AST (SGOT) 17 U/L (5-34); Alkaline Phosphatase 89 U/L (40-110); Anion Gap 15 mmol/L (10-20); BUN (Urea Nitrogen) 14 mg/dL (9.8-20.1); Bilirubin, Total 0.4 mg/dL (0.2-1.2); Calc. Creatinine Clearance 0 mL/min (70-130); Calcium 10.5 mg/dL (7.8-10.44); Carbon Dioxide 25 mmol/L (23-31); Chloride 105 mmol/L (98-107); Estimated GFR-MDRD 85; Globulin 4.6 g/dL (2.4-3.5); Glucose 99 mg/dL (83-110); Potassium 3.9 mmol/L (3.5-5.1); Protein, Total 8.6 g/dL (6.0-8.3); Sodium 141 mmol/L (136-145)
--- NOTE | 2019-05-23 14:37 | RAD ---
EXAM: CHEST ONE VIEW HISTORY: Cough. Altered mental status. COMPARISON: 02/09/2019 FINDINGS: The cardiac silhouette and pulmonary vasculature is within normal limits. There is mild prominence of the superior mediastinal structures, but similar finding was seen on the prior exam as well as on the study of 08/23/2018 and may be related to vascular structures in this region. This is difficult to further evaluated on chest x-ray. Lungs are clear on today's exam. Patchy density at the right lung base has resolved. Elevation right hemidiaphragm is present. Breast calcifications are seen in t he thoracic aorta. No other interval change. IMPRESSION: 1. No acute cardiopulmonary process. 2. Mild prominence of the superior mediastinum structures which may relate to vascular structures. Th is is a stable finding compared to prior studies in 2019.
[2019-05-23] MEDS ORDERED: Heparin 1,000 UNITS/ML VIAL ONE (14:58)
[2019-05-23] MEDS ORDERED: cefTRIAXone\\ROCEPHIN 1 GM VIAL ONE (15:22)
[2019-05-23] MEDS ORDERED: Sodium Chloride 0.9% 100 ML ONE (15:22)
[2019-05-23 18:32] VITALS: BMI 26.8
[2019-05-23] MEDS ORDERED: Ondansetron ODT 4 MG TAB SL PRN (18:41)
[2019-05-23] MEDS ORDERED: Ondansetron PF 4 MG/2 ML Vial IVP PRN (18:41)
[2019-05-23] MEDS ORDERED: Acetaminophen 325 MG TAB PO PRN ×2 (18:41→21:39)
[2019-05-23] MEDS ORDERED: Dextrose 5% in Water 1,000 ML IV PRN (18:44)
[2019-05-23] MEDS ORDERED: Insulin Regular 300 UNITS/3 ML VIAL SC PRN (18:44)
[2019-05-23] MEDS ORDERED: Dextrose 50% Abboject 50 ML SYRINGE IVP PRN (18:44)
[2019-05-23] MEDS: Sodium Chloride 0.45% 1,000 ML IV SCH (21:26)
--- NOTE | 2019-05-23 23:34 | HP ---
CHIEF COMPLAINT: Altered mental status. HISTORY OF PRESENT ILLNESS: Ms. Hills is a 78-year-old female with past medical history of urinary retention, hypertension, diabetes, non-ambulatory, [facility] The patient usually alert, awake, and communicating, but today she was not responding at all. Her vital signs were normal. Did not have any fever. No nausea or vomiting. The patient ate okay yesterday. Did not complain of any chest pain or shortness of breath yesterday. In view of change in her mental status, the patient was sent to the hospital. In the ER, the patient was found to have urinary tract infection with acute kidney injury, received IV fluid bolus as well as Rocephin and the patient admitted. The patient is more alert now and is being admitted for further evaluation and management. PAST MEDICAL HISTORY: 1. Hypertension. 2. Diabetes mellitus. 3. Urinary retention. 4. Hyperlipidemia. 5. History of endocarditis. 6. History of hemorrhoids and bacteremia. 7. History of sacral decubitus. 8. Venous insufficiency. PAST SURGICAL HISTORY: Nothing significant. CURRENT MEDICATIONS: The patient is on, 1. Aspirin 81 mg daily. 2. Vitamin C 500 mg daily. 3. Tylenol p.r.n. 4. Pepcid 20 mg daily. 5. Ferrous sulfate daily. 6. Gabapentin 300 b.i.d. 7. Metoprolol 25 b.i.d. 8. Lisinopril 5 mg b.i.d. 9. Insulin Lantus 10 units b.i.d. 10. Multivitamin daily. 11. Procardia XL 60 mg daily. 12. MiraLAX daily. ALLERGIES: NKDA. FAMILY HISTORY: Nothing contributory. SOCIAL HISTORY: The patient is a resident of [facility]. No history of smoking. No history of alcohol. REVIEW OF SYSTEMS: CARDIOVASCULAR: No chest pain. No shortness of breath. RESPIRATORY: No fever or cough. GASTROINTESTINAL: No nausea, vomiting, or abdominal pain symptoms. CENTRAL NERVOUS SYSTEM: No headache. No dizziness. PHYSICAL EXAMINATION: GENERAL: The patient is alert, awake, and oriented x3. VITAL SIGNS: Temperature 98, pulse 72, respirations 20, and blood pressure 140/80. HEENT: Head is normocephalic and atraumatic. Pupils are equal and reactive. Nasopharynx is pale and dry. NECK: Supple. No JVD. LUNGS: Bilateral air entry. No rales. No rhonchi. HEART: S1 and S2. Regular. ABDOMEN: Soft. No distention. No tenderness. No organomegaly. Bowel sounds present. RECTAL: Deferred. CENTRAL NERVOUS SYSTEM: No focal deficit. LABORATORY DATA: CBC shows WBC 6.5, hemoglobin 12, hematocrit 39, and platelets 341. Metabolic panel: Sodium 140, potassium 3.9, chloride 105, CO2 of 23, BUN 14, creatinine 0.7, glucose 99. BNP was 201. Urinalysis revealed wbc greater than 15, bacteria 4+. Chest x-ray, no acute cardiopulmonary process. ASSESSMENT: 1. Metabolic encephalopathy, acute. 2. Urinary tract infection, rule out sepsis. 3. Urinary retention, status post Ortiz catheter. 4. Diabetes mellitus. 5. Hypertension. 6. History of sacral decubitus. PLAN: 1. Vital signs q.4 hours. 2. Activated as tolerated. 3. Allergies, NKDA. 4. Diet: ADA. 5. IV fluids, half normal at 80 mL/h. 6. Rocephin 2 g IV piggyback daily. 7. Continue jail medicine. 8. Accu-Chek before meals and at bedtime. 9. Sliding scale mild with regular insulin. 10. Wound care team consult. 11. Urine cultures. Job ID: [id number]
[2019-05-24] MEDS: Sodium Chloride 0.45% 1,000 ML IV SCH (06:30)
[2019-05-24] MEDS: Ferrous Sulfate 325 MG TAB PO SCH (08:18)
[2019-05-24] MEDS: Acetaminophen 325 MG TAB PO SCH ×2 (08:18→20:55)
[2019-05-24] MEDS: Ascorbic Acid 500 mg Chewable Tablet PO SCH (08:19)
[2019-05-24] MEDS: Multivit, Therapeutic 1 TAB PO SCH (08:20)
[2019-05-24] MEDS: NIFEdipine XL 60 MG TAB PO SCH (08:20)
[2019-05-24] MEDS: Metoprolol Tartrate 25 MG TAB PO SCH ×2 (08:20→20:55)
[2019-05-24] MEDS: Aspirin 81 mg Enteric Coated Tablet PO SCH (08:20)
[2019-05-24] MEDS: Mirtazapine 15 MG TAB PO SCH (08:20)
[2019-05-24] MEDS: Famotidine 20 MG TAB PO SCH ×2 (08:20→20:55)
[2019-05-24] MEDS: Gabapentin 300 MG CAP PO SCH ×2 (08:20→20:55)
[2019-05-24] MEDS: Polyethylene Glycol 3350 17 GM Packet PO SCH (08:21)
[2019-05-24] MEDS: Senokot S 8.6-50 MG TAB PO SCH ×2 (08:21→20:55)
[2019-05-24] MEDS ORDERED: CARBOXYMETHYLCELLULOSE EA EYE SCH (09:00)
[2019-05-24] MEDS ORDERED: Lisinopril 5 MG TAB PO SCH ×2 (09:00→11:00)
[2019-05-24] MEDS: Polyvinyl Alcohol 1.4%/Povidone 0.6% Opth Drops EA EYE SCH (09:18)
[2019-05-24] MEDS: cefTRIAXone\\ROCEPHIN 2 GM in Sodium Chloride 0.9% 100 ML IVPB SCH (15:58)
[2019-05-24] MEDS ORDERED: cloNIDine 0.1 MG TAB PO PRN (18:20)
[2019-05-24] MEDS: Lisinopril 10 MG TAB PO SCH (20:54)
[2019-05-25] MEDS: Ferrous Sulfate 325 MG TAB PO SCH (09:20)
[2019-05-25] MEDS: Famotidine 20 MG TAB PO SCH ×2 (09:21→21:29)
[2019-05-25] MEDS: Ascorbic Acid 500 mg Chewable Tablet PO SCH (09:21)
[2019-05-25] MEDS: Gabapentin 300 MG CAP PO SCH ×2 (09:21→21:29)
[2019-05-25] MEDS: Mirtazapine 15 MG TAB PO SCH (09:21)
[2019-05-25] MEDS: Lisinopril 10 MG TAB PO SCH ×2 (09:21→21:29)
[2019-05-25] MEDS: Acetaminophen 325 MG TAB PO SCH ×2 (09:21→21:29)
[2019-05-25] MEDS: Metoprolol Tartrate 25 MG TAB PO SCH ×2 (09:21→21:29)
[2019-05-25] MEDS: Aspirin 81 mg Enteric Coated Tablet PO SCH (09:21)
[2019-05-25] MEDS: Multivit, Therapeutic 1 TAB PO SCH (09:22)
[2019-05-25] MEDS: Polyvinyl Alcohol 1.4%/Povidone 0.6% Opth Drops EA EYE SCH (09:23)
[2019-05-25] MEDS: Polyethylene Glycol 3350 17 GM Packet PO SCH (09:23)
[2019-05-25] MEDS: NIFEdipine XL 60 MG TAB PO SCH (09:23)
[2019-05-25] MEDS: Senokot S 8.6-50 MG TAB PO SCH ×2 (09:24→21:29)
[2019-05-25] MEDS ORDERED: Vancomycin 1.5 GRAM/300 ML BAG 1.5 GM in Premix Bag 1 BAG IVPB SCH (11:00)
--- NOTE | 2019-05-25 13:50 | PQF ---
CLINICAL DOCUMENTATION IMPROVEMENT CLARIFICATION FORM: ICD-10 Updated PLEASE DO AN ADDENDUM TO THE PROGRESS NOTE WITH ANY DOCUMENTATION UPDATES OR ADDITIONS AND CARRY THROUGH TO DC SUMMARY. THANK YOU. DATE: 05/25/19 ATTN: DR. THOMAS Please exercise your independent, professional judgment in responding to the clarification form. Clinical indicators are provided on the bottom of this form for your review Please check appropriate box(s): [ y] UTI please specify if due to or related to (as applicable): [ y] Indwelling catheter [ ] Suprapubic catheter [ ] Unable to determine etiology UTI Site: [ ] Kidney [ ] Ureter [ ] Bladder [ ] Urethra [ y ] Unable to determine Specify Organism (if known): [ ] Unknown organism [ ] Contaminated urine specimen without UTI [ ] Other diagnosis [ ] Unable to determine In addition, please specify: Present on Admission (POA): [ y ] Yes [ ] No [ ] Unable to determine For continuity of documentation, please document condition throughout progress notes and discharge summary. Thank You. CLINICAL INDICATORS - SIGNS / SYMPTOMS / LABS / RESULTS AND LOCATION IN MR H&P: "UTI" RISKS: CHRONIC INDWELLING CANO (ER NOTE) TREATMENT: IV ROCEPHIN (ER-PRESENT) IV FLUIDS (ER) REPLACEMENT OF CANO CATHETER URINE CULTURE (05/23) (This form is maintained as a part of the permanent medical record) [employer] Final [employer] 2014 [employer]. All Rights Reserved CLEO [email or web address] Office: [phone] [facility] PS[facility]CH[facility]ATRIC CENTERScot
--- NOTE | 2019-05-25 14:03 | CT ---
CT OF THE ABDOMEN AND PELVIS WITHOUT IV CONTRAST INDICATION: Urosepsis with indwelling Ortiz catheter COMPARISON: Lumbar spinal radiographs dated September 23, 2018. FINDINGS: The lack of IV contrast limits evaluation of the solid organs of the abdomen and pelvis. ABDOMEN: Lung bases: Clear Liver: No focal lesion. Gallbladder: Mildly distended Pancreas: Normal. Adrenal glands: There is a 1.1 cm hypodensity involving the right adrenal gland cannot be further leydi racterize. Left adrenal gland is normal-appearing. Spleen: Normal. Kidneys and ureters: Normal. No hydronephrosis. Vasculature: There are mild vascular calcifications seen involving the visualized vasculature. Lymph nodes:No lymphadenopathy. Free fluid in abdomen:No free fluid is evident. PELVIS: Small and large bowel: There is a moderate amount retained stool within the colon. The small bowel is of normal caliber. Appendix:Normal Bladder: Rotiz catheter is seen within decompressed bladder Rectal and perirectal soft tissues:Moderate amount of retained stool within the rectum Reproductive structures: Multiple calcified fibroids within the uterus. Free fluid in pelvis: No free fluid is evident. Lymphadenopathy pelvis: No lymphadenopathy is evident. Osseous structures: There is prominent endplate irregularity with subendplate sclerosis and marginal osteophytes involving the L4-5 intervertebral level suspicious for changes of remote osteomyelitis and discitis at L4-5. The endplate irregularity and destructive change appears slightly more pronounc ed than on the comparison radiographs from [facility] dated September 23, 2018. There is scattered degenerative and osteoarthritic changes. Soft tissues:Normal. IMPRESSION: 1. Findings most suspicious for progressive chronic discitis and osteomyelitis involving the L4-5 int ervertebral level with loss of the normal fat planes involving the surrounding psoas musculature at L4-5. The extent of endplate irregularity is much more pronounced than on comparison lumbar spinal ra diograph dated September 23, 2018. 2. Ortiz catheter within decompressed bladder. 3. Mildly distended gallbladder. 4. Incomplete to characterize right adrenal nodule. If clinically indicated a follow-up CT of the abd omen utilizing adrenal mass protocol may be helpful 5. Moderate amount retained stool within the colon and rectum 6. Fibroid uterus
[2019-05-25] MEDS: cefTRIAXone\\ROCEPHIN 2 GM in Sodium Chloride 0.9% 100 ML IVPB SCH (16:19)
--- NOTE | 2019-05-25 16:23 | PRG ---
DATE OF SERVICE: 05/25/2019 She is still about the same. No pain. No respiratory symptoms or diarrhea. She has been afebrile. No new labs. A CT abdomen and pelvis demonstrated prominent endplate irregularity, sub-endplate sclerosis and marginal osteophytes, suspicious for changes of remote osteomyelitis and diskitis in the L4-L5, slightly more pronounced than the comparison radiographs from [place] dated 09/16, so there is a suspicion for progression of chronic diskitis and osteomyelitis. We will go ahead and image the area with MRI and we will treat as if she truly had, which she probably does chronic diskitis and osteomyelitis secondary to Staph aureus in the lumbosacral spine area as opposed to urinary tract infection causing this bacteremia. PICC line placement. Case Management for disposition planning. Job ID: [id number]
--- NOTE | 2019-05-25 18:11 | CON ---
DATE OF CONSULTATION: 05/25/2019 REASON FOR CONSULTATION: Bacteremia. HISTORY OF PRESENT ILLNESS: A 78-year-old known to me from prior visit who has a history of type 2 diabetes and neurogenic bladder, requiring intermittent catheterization, then transition to indwelling Ortiz catheter. In the past, the patient had been treated for MRSA bacteremia associated with a small vegetation in the aortic valve, treated with six weeks of IV vancomycin. The patient had been to [facility] and in January 2019, presented again with fever and chills and concern of the possibility of urinary retention. The patient had an E coli with resistance to quinolones and we advised in-and out catheterization to avoid indwelling Ortiz catheter. Eventually, she had a catheter replaced and maintained an indwelling Ortiz catheter until the end of March 2019 when she saw a urologist. He recommended removal of the Ortiz catheter, which was carried out by the halfway staff, but the patient developed retention again with almost 2100 mL of urine detected in her bladder. She had another indwelling Ortiz replaced and then she was found unconscious by the nurse on the day of admission to this hospital. According to the nurse, she was not responsive and EMS was activated. There had been no febrile episode identified. No seizure activity. No respiratory symptoms or diarrhea and no skin problems. On arrival, BP 164/73, pulse 70, temperature 98.5, O2 saturation 100. On exam, the patient at this time was awake and described as alert to place and time. Sluggish responses, but answering all questions appropriately. Overall exam was not particularly remarkable except for the tea-colored urine and a chronic indwelling Ortiz catheter. Initial findings also included white cell count 6.5, hemoglobin 12.5, platelets 345 with a normal differential and sodium 141, creatinine 0.79, calcium 10.5. Normal liver profile. Serum total protein 8.6 and albumin 4.0. Urinalysis with greater than 50 wbc's and thus far cultures with one set out of two with Staphylococcus aureus which appears to be methicillin sensitive. Preliminary urine mixed culture with possible pathogens in progress. Imaging included a chest x-ray with no acute cardiopulmonary process. Mild prominence of superior mediastinum structures. Currently, Ms. Hills is awake. She is a bit sluggish, but is oriented x3. Recall is somewhat limited. She has retrograde and antegrade amnesia around the event. Denies any pain at the moment. No respiratory symptoms. No diarrhea. PAST MEDICAL HISTORY: Type 2 diabetes, neuropathy, neurogenic bladder, aortic valve endocarditis secondary to MRSA treated in the past to completion and apparent resolution, foot ulcers. ALLERGIES: NONE. 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 FAMILY HISTORY: Noncontributory. MEDICATIONS: 1. P.r.n. medications. 2. Ecotrin. 3. Ceftriaxone. 4. Catapres. 5. Cymbalta. 6. Pepcid. 7. Feosol. 8. Neurontin. 9. Zestril. 10. Lopressor. 11. Procardia. 12. MiraLax. 13. Vancomycin. PHYSICAL EXAMINATION: VITAL SIGNS: Normal temperature throughout the hospital stay. BP 170/73, pulse 63, respirations 12, O2 saturation 100. SKIN: The patient has peripheral IV access and indwelling Ortiz catheter. No lymphadenopathy. HEENT: Ocular movements conjugate. Sclerae white. Conjunctivae normal. Oral cavity not remarkable. NECK: Supple. No jugular vein distention. LUNGS: Symmetric air entry. No crackles or wheezing. HEART: S1, S2. Regular rate. No murmurs. No S3 or S4. ABDOMEN: Soft, not distended or tender. No organomegaly. No bladder distention. EXTREMITIES: Moves extremities equally. No edema. Stasis dermatitis in lower extremities with evidence of hyperkeratosis and dry skin. Plantar responses are flexor. NEURO: Awake, knows her name and knows where she is and the date, has some trouble remembering information from the recent past. Speech appeared to be normal. ASSESSMENT: 1. Type 2 diabetes. 2. Neurogenic bladder with prior admissions for urosepsis, recent attempt at removing Ortiz catheter, which failed and required reintroduction of indwelling Ortiz catheter and now Staph aureus bacteremia associated with altered mental status with recovery after admission. DISCUSSION: The differential diagnosis includes an invasive UTI with pyelonephritis, obstruction, recrudescence of endocarditis with a different pathogen is less likely since the bacteremia is transient, but we will have to wait for the final report. If the second sample returns positive, then we will order an echocardiogram and consider MAUREEN. Otherwise, just continue treatment with likely beta-lactam. In her case it is controllable source and now will be able to treat for 2 weeks only and would be able to switch her to oral if the imaging studies of the urinary tract do not show any obstructive process. Job ID: [id number]
--- NOTE | 2019-05-26 09:22 | SPC ---
Ultrasound and Fluoroscopic guided left upper extremity PICC placement HISTORY: Need for central vascular access. FINDINGS: Informed consent obtained prior to the procedure. An appropriate access site was determined with ultrasound guidance. The area was then meticulously pr epped and draped in usual sterile fashion. Skin overlying the left basilic vein anesthetized with 1% buffered lidocaine. Utilizing direct sonogr aphic guidance, vascular access is obtained via the left basilic vein, and an 0.018in guidewire was advanced to the distal SVC. Intravascular length is calculated at 41 cm, and the PICC is cut accordin gly. Needle is removed and replaced with a peel-away sheath. The PICC was advanced over the wire. Wire and peel-away sheath were removed. The tip of the catheter overlies the distal SVC. The catheter was accessed and aspirated/flushed easily. Exposure data: 0.8 minutes of fluoroscopic time 3,162 mGy centimeter squared FINDINGS: Technically successful placement of a 41 centimeter single lumen 5 Divehi left upper extremity PICC l ine. IMPRESSION: Successful ultrasound guided placement of a left upper extremity PICC.
[2019-05-26] MEDS: Ferrous Sulfate 325 MG TAB PO SCH (09:31)
[2019-05-26] MEDS: Acetaminophen 325 MG TAB PO SCH ×2 (09:32→19:55)
[2019-05-26] MEDS: Aspirin 81 mg Enteric Coated Tablet PO SCH (09:32)
[2019-05-26] MEDS: Ascorbic Acid 500 mg Chewable Tablet PO SCH (09:32)
[2019-05-26] MEDS: Famotidine 20 MG TAB PO SCH ×2 (09:33→19:55)
[2019-05-26] MEDS: Lisinopril 10 MG TAB PO SCH ×2 (09:33→19:55)
[2019-05-26] MEDS: Gabapentin 300 MG CAP PO SCH ×2 (09:33→19:55)
[2019-05-26] MEDS: Metoprolol Tartrate 25 MG TAB PO SCH ×2 (09:33→19:56)
[2019-05-26] MEDS: Mirtazapine 15 MG TAB PO SCH (09:33)
[2019-05-26] MEDS: Senokot S 8.6-50 MG TAB PO SCH ×2 (09:34→19:56)
[2019-05-26] MEDS: Polyethylene Glycol 3350 17 GM Packet PO SCH (09:34)
[2019-05-26] MEDS: Multivit, Therapeutic 1 TAB PO SCH (09:34)
[2019-05-26] MEDS: NIFEdipine XL 60 MG TAB PO SCH (09:34)
[2019-05-26] MEDS: Polyvinyl Alcohol 1.4%/Povidone 0.6% Opth Drops EA EYE SCH (11:20)
[2019-05-26] MEDS: cefTRIAXone\\ROCEPHIN 2 GM in Sodium Chloride 0.9% 100 ML IVPB SCH (16:02)
[2019-05-27 04:58] LABS: #Basophils 0.1 thou/uL (0.0-0.2); #Eosinphils 0.3 thou/uL (0.0-0.7); #Lymphocytes 2.2 thou/uL (1.20-3.40); #Monocytes 0.4 thou/uL (0.11-0.59); #Neutrophils 2.1 thou/uL (1.40-6.50); %Basophils 1.1 % (0.0-1.0); %Eosinophils 6.9 % (0.0-10.0); %Lymphocytes 42.9 % (21.0-51.0); %Monocytes 7.5 % (0.0-10.0); %Neutrophils 41.7 % (42.0-75.0); Hemoglobin 11.3 g/dL (12.0-16.0); Mean Corpuscular HGB CONC 31.1 g/dL (32.0-36.0); Mean Corpuscular Hemoglobin 25.2 pg (27.0-31.0); Mean Platelet Volume 8.3 fL (7.4-10.4); Platelet Count 301 thou/uL (130-400); RBC Distribution Width 15.5 % (11.5-14.5); Red Blood Cell (RBC) Count 4.47 mill/uL (4.20-5.40); White Blood Cell (WBC) Count 5.1 thou/uL (4.8-10.8)
[2019-05-27 05:27] LABS: Anion Gap 14 mmol/L (10-20); BUN (Urea Nitrogen) 16 mg/dL (9.8-20.1); Calc. Creatinine Clearance 79 mL/min (70-130); Calcium 10.2 mg/dL (7.8-10.44); Carbon Dioxide 28 mmol/L (23-31); Chloride 105 mmol/L (98-107); Estimated GFR-MDRD Greater than 90; Glucose 127 mg/dL (83-110); Potassium 3.9 mmol/L (3.5-5.1); Sodium 143 mmol/L (136-145)
[2019-05-27] MEDS: Gabapentin 300 MG CAP PO SCH ×2 (09:22→21:17)
[2019-05-27] MEDS: Lisinopril 10 MG TAB PO SCH ×2 (09:22→21:17)
[2019-05-27] MEDS: Ascorbic Acid 500 mg Chewable Tablet PO SCH (09:22)
[2019-05-27] MEDS: Ferrous Sulfate 325 MG TAB PO SCH (09:22)
[2019-05-27] MEDS: Acetaminophen 325 MG TAB PO SCH ×2 (09:22→21:17)
[2019-05-27] MEDS: Aspirin 81 mg Enteric Coated Tablet PO SCH (09:22)
[2019-05-27] MEDS: Famotidine 20 MG TAB PO SCH ×2 (09:22→21:16)
[2019-05-27] MEDS: Multivit, Therapeutic 1 TAB PO SCH (09:23)
[2019-05-27] MEDS: NIFEdipine XL 60 MG TAB PO SCH ×2 (09:23→21:17)
[2019-05-27] MEDS: Senokot S 8.6-50 MG TAB PO SCH ×2 (09:23→21:17)
[2019-05-27] MEDS: Mirtazapine 15 MG TAB PO SCH (09:23)
[2019-05-27] MEDS: Polyethylene Glycol 3350 17 GM Packet PO SCH (09:23)
[2019-05-27] MEDS: Metoprolol Tartrate 25 MG TAB PO SCH ×2 (09:23→21:18)
[2019-05-27] MEDS: Polyvinyl Alcohol 1.4%/Povidone 0.6% Opth Drops EA EYE SCH (09:49)
[2019-05-27] MEDS: cefTRIAXone\\ROCEPHIN 2 GM in Sodium Chloride 0.9% 100 ML IVPB SCH (14:16)
[2019-05-27] MEDS ORDERED: hydrALAZINE 20 MG/ML VIAL SLOW IVP PRN (17:36)
[2019-05-28] MEDS: Lisinopril 10 MG TAB PO SCH ×2 (09:05→20:05)
[2019-05-28] MEDS: Metoprolol Tartrate 25 MG TAB PO SCH ×2 (09:05→20:04)
[2019-05-28] MEDS: Gabapentin 300 MG CAP PO SCH ×2 (09:05→20:04)
[2019-05-28] MEDS: Aspirin 81 mg Enteric Coated Tablet PO SCH (09:09)
[2019-05-28] MEDS: Senokot S 8.6-50 MG TAB PO SCH ×2 (09:09→20:05)
[2019-05-28] MEDS: Famotidine 20 MG TAB PO SCH ×2 (09:09→20:04)
[2019-05-28] MEDS: Mirtazapine 15 MG TAB PO SCH (09:10)
[2019-05-28] MEDS: Acetaminophen 325 MG TAB PO SCH ×2 (09:10→20:04)
[2019-05-28] MEDS: Multivit, Therapeutic 1 TAB PO SCH (09:10)
[2019-05-28] MEDS: NIFEdipine XL 60 MG TAB PO SCH (09:10)
[2019-05-28] MEDS: Ascorbic Acid 500 mg Chewable Tablet PO SCH (09:10)
[2019-05-28] MEDS: Ferrous Sulfate 325 MG TAB PO SCH (09:10)
[2019-05-28] MEDS: Polyethylene Glycol 3350 17 GM Packet PO SCH (09:18)
[2019-05-28] MEDS: Polyvinyl Alcohol 1.4%/Povidone 0.6% Opth Drops EA EYE SCH (14:10)
[2019-05-28] MEDS: cefTRIAXone\\ROCEPHIN 2 GM in Sodium Chloride 0.9% 100 ML IVPB SCH (14:38)
[2019-05-29] MEDS: Aspirin 81 mg Enteric Coated Tablet PO SCH (08:09)
[2019-05-29] MEDS: Acetaminophen 325 MG TAB PO SCH ×2 (08:09→20:50)
[2019-05-29] MEDS: Gabapentin 300 MG CAP PO SCH ×2 (08:10→20:51)
[2019-05-29] MEDS: Ascorbic Acid 500 mg Chewable Tablet PO SCH (08:10)
[2019-05-29] MEDS: NIFEdipine XL 90 MG TAB PO SCH (08:10)
[2019-05-29] MEDS: Ferrous Sulfate 325 MG TAB PO SCH (08:10)
[2019-05-29] MEDS: Lisinopril 10 MG TAB PO SCH ×2 (08:10→20:51)
[2019-05-29] MEDS: Famotidine 20 MG TAB PO SCH ×2 (08:10→20:51)
[2019-05-29] MEDS: Mirtazapine 15 MG TAB PO SCH (08:11)
[2019-05-29] MEDS: Senokot S 8.6-50 MG TAB PO SCH ×2 (08:12→20:51)
[2019-05-29] MEDS: Polyethylene Glycol 3350 17 GM Packet PO SCH (08:12)
[2019-05-29] MEDS: Metoprolol Tartrate 25 MG TAB PO SCH ×2 (08:12→20:51)
[2019-05-29] MEDS: Multivit, Therapeutic 1 TAB PO SCH (08:12)
[2019-05-29] MEDS: Polyvinyl Alcohol 1.4%/Povidone 0.6% Opth Drops EA EYE SCH (11:55)
[2019-05-29] MEDS: cefTRIAXone\\ROCEPHIN 2 GM in Sodium Chloride 0.9% 100 ML IVPB SCH (14:22)
[2019-05-30] MEDS: NIFEdipine XL 90 MG TAB PO SCH (08:11)
[2019-05-30] MEDS: Acetaminophen 325 MG TAB PO SCH ×2 (08:12→20:29)
[2019-05-30] MEDS: Mirtazapine 15 MG TAB PO SCH (08:12)
[2019-05-30] MEDS: Metoprolol Tartrate 25 MG TAB PO SCH ×2 (08:12→20:29)
[2019-05-30] MEDS: Famotidine 20 MG TAB PO SCH ×2 (08:13→20:29)
[2019-05-30] MEDS: Lisinopril 10 MG TAB PO SCH ×2 (08:13→20:29)
[2019-05-30] MEDS: Aspirin 81 mg Enteric Coated Tablet PO SCH (08:13)
[2019-05-30] MEDS: Senokot S 8.6-50 MG TAB PO SCH ×2 (08:14→20:30)
[2019-05-30] MEDS: Polyvinyl Alcohol 1.4%/Povidone 0.6% Opth Drops EA EYE SCH (08:14)
[2019-05-30] MEDS: Gabapentin 300 MG CAP PO SCH ×2 (08:14→20:29)
[2019-05-30] MEDS: Ferrous Sulfate 325 MG TAB PO SCH (08:14)
[2019-05-30] MEDS: Ascorbic Acid 500 mg Chewable Tablet PO SCH (08:14)
[2019-05-30] MEDS: Multivit, Therapeutic 1 TAB PO SCH (08:14)
[2019-05-30] MEDS: Polyethylene Glycol 3350 17 GM Packet PO SCH (08:15)
[2019-05-30] MEDS: cefTRIAXone\\ROCEPHIN 2 GM in Sodium Chloride 0.9% 100 ML IVPB SCH (15:34)
--- NOTE | 2019-05-30 15:40 | PRG ---
DATE OF SERVICE: 05/30/2019 SUBJECTIVE: The patient is transferred to the floor. She is awake. No respiratory symptoms or abdominal pain. Has a Ortiz catheter in place. OBJECTIVE: VITAL SIGNS: Temperature max 98.9, blood pressure 160/74, pulse 65, respirations 14, O2 saturation 92% to 99%. GENERAL: Awake, alert, oriented. LUNGS: Clear. HEART: S1 and S2. Regular rate. ABDOMEN: Soft. EXTREMITIES: Able to move extremities, but she is unable to ambulate. LABORATORY DATA: White cell count is 5.1, hemoglobin 11, platelets 301. Creatinine 0.6. Microbiology with MSSA one out of two sets of blood cultures. Currently, on ceftriaxone. 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 This was a serendipitous discovery. This is mostly centered at L4-5. We will go ahead and image that area with MRI. Continue Rocephin. Plan long-term treatment. Case Management orders have been entered. Job ID: [id number]
[2019-05-31 05:47] LABS: #Basophils 0.1 thou/uL (0.0-0.2); #Eosinphils 0.3 thou/uL (0.0-0.7); #Lymphocytes 2.2 thou/uL (1.20-3.40); #Monocytes 0.4 thou/uL (0.11-0.59); %Basophils 1.1 % (0.0-1.0); %Eosinophils 6.2 % (0.0-10.0); %Lymphocytes 44.4 % (21.0-51.0); %Monocytes 8.2 % (0.0-10.0); %Neutrophils 40.2 % (42.0-75.0); Hemoglobin 10.7 g/dL (12.0-16.0); Mean Corpuscular HGB CONC 32.1 g/dL (32.0-36.0); Mean Corpuscular Hemoglobin 25.9 pg (27.0-31.0); Mean Corpuscular Volume 80.8 fL (78.0-98.0); Mean Platelet Volume 8.3 fL (7.4-10.4); Platelet Count 284 thou/uL (130-400); RBC Distribution Width 15.8 % (11.5-14.5); Red Blood Cell (RBC) Count 4.15 mill/uL (4.20-5.40); White Blood Cell (WBC) Count 4.9 thou/uL (4.8-10.8)
[2019-05-31 06:16] LABS: Anion Gap 11 mmol/L (10-20); BUN (Urea Nitrogen) 21 mg/dL (9.8-20.1); Calc. Creatinine Clearance 71 mL/min (70-130); Calcium 10.2 mg/dL (7.8-10.44); Carbon Dioxide 29 mmol/L (23-31); Chloride 106 mmol/L (98-107); Estimated GFR-MDRD 87; Glucose 97 mg/dL (83-110); Potassium 4.2 mmol/L (3.5-5.1); Sodium 142 mmol/L (136-145)
[2019-05-31] MEDS: Ferrous Sulfate 325 MG TAB PO SCH (09:33)
[2019-05-31] MEDS: Aspirin 81 mg Enteric Coated Tablet PO SCH (09:33)
[2019-05-31] MEDS: Famotidine 20 MG TAB PO SCH (09:34)
[2019-05-31] MEDS: Ascorbic Acid 500 mg Chewable Tablet PO SCH (09:34)
[2019-05-31] MEDS: NIFEdipine XL 90 MG TAB PO SCH (09:35)
[2019-05-31] MEDS: Acetaminophen 325 MG TAB PO SCH (09:35)
[2019-05-31] MEDS: Lisinopril 10 MG TAB PO SCH (09:36)
[2019-05-31] MEDS: Senokot S 8.6-50 MG TAB PO SCH (09:36)
[2019-05-31] MEDS: Mirtazapine 15 MG TAB PO SCH (09:36)
[2019-05-31] MEDS: Metoprolol Tartrate 25 MG TAB PO SCH (09:37)
[2019-05-31] MEDS: Gabapentin 300 MG CAP PO SCH (09:37)
[2019-05-31] MEDS: Multivit, Therapeutic 1 TAB PO SCH (09:37)
[2019-05-31] MEDS: Polyethylene Glycol 3350 17 GM Packet PO SCH (09:37)
[2019-05-31] MEDS: Polyvinyl Alcohol 1.4%/Povidone 0.6% Opth Drops EA EYE SCH (11:18)
[2019-05-31] MEDS: cefTRIAXone\\ROCEPHIN 2 GM in Sodium Chloride 0.9% 100 ML IVPB SCH (14:22)
--- NOTE | 2019-05-31 16:41 | MRI ---
MR the lumbar spine with and without contrast: 05/31/2019 History: Lumbar spine discitis/osteomyelitis COMPARISON: No prior MRI TECHNIQUE: Multiplanar multisequence MR images were obtained of lumbar spine with and without IV cont rast FINDINGS: On the basis of 5 lumbar type vertebral bodies, conus medullaris terminates at theL1-2 level. STIR imaging demonstrates abnormal increased signal within the L3 and L4 vertebral bodies. T12-L1:Intervertebral disc height and signal intensity within normal limits. Mild bilateral facet hyp ertrophy. No significant central canal or neural foraminal stenosis. L1-2:Intervertebral disc height and signal intensity within normal limits. Mild bilateral facet hyper trophy. No significant central canal or neural foraminal stenosis. L2-3:Mild bilateral facet hypertrophy. Mild disc bulge. Mild/moderate bilateral neural foraminal sten osis, right greater than left. No significant central canal stenosis. L3-4:There are destructive changes involving the inferior endplate of L3 in the superior endplate of L4. There is abnormal increased T2 signal within the L3-4 disc. Moderate bilateral facet hypertrophy with hypertrophy of the ligamentum flavum noted. There is a new mild/moderate degree of c entral canal stenosis. Severe bilateral neural foraminal stenosis. L4-5:Severe bilateral facet hypertrophy. There is disc space narrowing with disc desiccation mild dis c bulge. Moderate/severe central canal stenosis. Moderate/severe bilateral neural foraminal stenosis. L5-S1:Bilateral facet hypertrophy. There is prominent loss of intervertebral disc height. There is a small disc osteophyte complex with mild central canal stenosis. Moderate/severe bilateral neural foraminal stenosis, right greater than left. Image retroperitoneal structures demonstratemild increased T2 signal within the sella has muscle medi ally bilaterally at the L3-4 level consistent with myositis related to disc height is/osteomyelitis at L3-4. No evidence for several as muscle abscess. Detailed assessment of the postcontrast imaging i s limited by motion. No discrete epidural abscess. Partially visualized fibroid uterus present. Postcontrast imaging demonstrates no discrete abnormal enhancement involving the nerve roots of the c auda equina. The postcontrast imaging demonstrates abnormal enhancement of the L3 and L4 vertebral bodies, particu larly the endplates abutting an abnormal enhancing L3-4 intervertebral disc, consistent with discitis/osteomyelitis. IMPRESSION: Discitis/osteomyelitis at L3-4 as detailed above. Prominent multilevel lumbar spine degenerative malone ge as detailed above. Detailed assessment of the postcontrast imaging is limited by motion but no convincing evidence for psoas muscle abscess or epidural abscess. Edematous changes are noted within the central aspect of the psoas muscles at the L3 and L4 levels suggesting infectious psoas myositis.
[2019-05-31 17:11] VITALS: BP 135/66; TEMP 98.2
--- NOTE | 2019-06-01 22:41 | PQF ---
[employer] Crystal Reports Winform Viewer YADIEL NAIDU VENKAT R MD [id number] [id number] [id number] CLINICAL DOCUMENTATION CLARIFICATION FORM: POST DISCHARGE Addendum to original discharge summary date: ____ Late entry note date: __ DATE: 06/01/19 ATTN: Ajay Szymanski Please exercise your independent, professional judgment in responding to the clarification form. Clinical indicators are provided on the bottom of this form for your review Can you please further clarify if Sepsis is ruled in or ruled out? Sepsis [ y ] Ruled in diagnosis [ y] Continue to treat [ ] Resolved [ ] Ruled out diagnosis [ ] Cannot rule out diagnosis [ ] Other diagnosis [ ] Unable to determine In addition, please specify: Present on Admission (POA): [ y] Yes [ ] No [ ] Unable to determine For continuity of documentation, please document condition throughout progress notes and discharge summary. Thank You. CLINICAL INDICATORS - SIGNS / SYMPTOMS / LABS H and P pg.1- UTI rule out Sepsis ED Provider pg.2- Chronic indwelling catheter, tea-colored urine ED Provider pg.4- Urinary tract infection H and P pg.2- VS Temp 98, pulse 72, respi 20, BP 140/[address] Daniels 05/25 pg,1- bacteremia Consult Dr. Daniels 05/25 pg,1- staphylococcus aureus which appears to be methicillin sensitive RISK FACTORS UTI- H and P pg.2 Acute metabolic encephalopathy- H and P pg.2 [place]- H and P pg.1 78 years old- H and P pg.1 DM- H and P pg.2 HTN- H and P pg.2 TREATMENTS Infectious Consult- Dr. Daniels 05/25 IV Fluids- MAR IV Antibiotics- MAY Blood culture- Microbiology 05/23 PICC placement 05/25 Abdomen/Pelvis CT (This form is maintained as a part of the permanent medical record) 2014 [employer] All Rights Reserved [email or web address]
== END 2019-05-31 18:29 | DRG 698 ==
LOC: ERS 12:56 → OBSVTOIN 15:12 → ERHOLD 15:12 → 2NO 18:15 → T4-B 05-27 20:43
PROVIDERS: ADMIT Internal Medicine; ATTEND Internal Medicine
PROC: 02HV33Z Insertion of Infusion Device into Superior Vena Cava, Percutaneous Approach (ICD-10-PCS; principal; 2019-05-26)
PROC: B518ZZA Fluoroscopy of Superior Vena Cava, Guidance (ICD-10-PCS; 2019-05-26)
PROC: B54NZZA Ultrasonography of Left Upper Extremity Veins, Guidance (ICD-10-PCS; 2019-05-26)
DX: T83.511A Infection and inflammatory reaction due to indwelling urethral catheter, initial encounter (principal); G93.41 Metabolic encephalopathy; A41.01 Sepsis due to Methicillin susceptible Staphylococcus aureus; N17.9 Acute kidney failure, unspecified; N39.0 Urinary tract infection, site not specified; K21.9 Gastro-esophageal reflux disease without esophagitis; M46.26 Osteomyelitis of vertebra, lumbar region; I10 Essential (primary) hypertension; F32.9 Major depressive disorder, single episode, unspecified; R33.9 Retention of urine, unspecified; E78.5 Hyperlipidemia, unspecified; E11.40 Type 2 diabetes mellitus with diabetic neuropathy, unspecified; N31.8 Other neuromuscular dysfunction of bladder; E11.69 Type 2 diabetes mellitus with other specified complication; M46.46 Discitis, unspecified, lumbar region; Z79.899 Other long term (current) drug therapy
CPT/HCPCS: 36415; 36416; 36569; 71045; 72158; 74176; 80048; 80053; 81003; 81015; 83605; 83880; 84484; 85025; 87040; 87077; 87086; 87149; 87186; 93005; 93306; 96361; 96365; C1751; J0696; J1644; J3490

== ENCOUNTER 2020-07-18 20:51 | Inpatient (IN) | payer MEDICAID, MEDICARE, OTHER ==
[~2020-07-18 20:51] MED LIST: Iopamidol-370 76% 500 ML 1 ML ONE
[2020-07-18 21:52] LABS: #Basophils 0.1 thou/uL (0.0-0.2); #Eosinphils 0.2 thou/uL (0.0-0.7); #Lymphocytes 2.8 thou/uL (1.20-3.40); #Monocytes 0.5 thou/uL (0.11-0.59); %Basophils 0.5 % (0.0-1.0); %Eosinophils 1.3 % (0.0-10.0); %Lymphocytes 19.3 % (21.0-51.0); %Monocytes 3.2 % (0.0-10.0); %Neutrophils 75.8 % (42.0-75.0); Hemoglobin 12.8 g/dL (12.0-16.0); Mean Corpuscular HGB CONC 31.7 g/dL (32.0-36.0); Mean Corpuscular Hemoglobin 28.4 pg (27.0-31.0); Mean Corpuscular Volume 89.6 fL (78.0-98.0); Platelet Count 334 thou/uL (130-400); RBC Distribution Width 12.6 % (11.5-14.5); White Blood Cell (WBC) Count 14.6 thou/uL (4.8-10.8)
[2020-07-18 22:14] LABS: ALT (SGPT) 16 U/L (8-55); AST (SGOT) 20 U/L (5-34); Albumin 3.5 g/dL (3.4-4.8); Alkaline Phosphatase 82 U/L (40-110); Anion Gap 16 mmol/L (10-20); BUN (Urea Nitrogen) 23 mg/dL (9.8-20.1); Bilirubin, Total 0.2 mg/dL (0.2-1.2); CK (CPK) 48 U/L (29-168); Calc. Creatinine Clearance 0 mL/min (70-130); Calcium 8.8 mg/dL (7.8-10.44); Carbon Dioxide 21 mmol/L (23-31); Chloride 110 mmol/L (98-107); Globulin 3.1 g/dL (2.4-3.5); Glucose 118 mg/dL (83-110); Lipase 39 U/L (8-78); Potassium 3.8 mmol/L (3.5-5.1); Protein, Total 6.6 g/dL (5.8-8.1); Sodium 143 mmol/L (136-145)
[2020-07-18 22:35] LABS: CKMB 0.9 ng/mL (0-6.6)
[2020-07-18 23:52] LABS: Bacteria/HPF None Seen HPF (None Seen); Bilirubin Negative (Negative); Blood, Urine 1+ (Negative); Clarity Extra Turbid (Clear); Glucose, Urine (Dipstick) Normal (Negative); Ketone, Urine Trace mg/dL (Negative); Leukocyte 500 Leu/uL (Negative); Nitrite Negative (Negative); Protein, Urine (Dipstick) 200 mg/dL (Neg-Trace); RBC/HPF None Seen HPF (0-3); Specific Gravity, Urine 1.016 (1.002-1.036); Squamous Epithelial None Seen HPF (0-3); WBC/HPF Greater than 50 HPF (0-3); pH, Urine 6.5 (5.0-9.0)
[2020-07-19] MEDS ORDERED: Vancomycin 1 GM/200 ML BAG ONE (00:21)
[2020-07-19] MEDS ORDERED: cefTRIAXone\\ROCEPHIN 1 GM VIAL ONE (00:21)
[2020-07-19] MEDS ORDERED: Aspirin 325 MG TAB ONE (00:40)
[2020-07-19 00:58] LABS: Lactic Acid 1.8 mmol/L (0.5-2.2)
[2020-07-19 06:00] LABS: Troponin I 0.106 ng/mL (< 0.028)
[2020-07-19] MEDS ORDERED: Acetaminophen 325 MG TAB PO PRN ×2 (06:04→06:15)
[2020-07-19] MEDS ORDERED: Ondansetron PF 4 MG/2 ML Vial IVP PRN ×2 (06:06→06:15)
[2020-07-19] MEDS ORDERED: Ondansetron ODT 4 MG TAB PO PRN (06:06)
[2020-07-19] MEDS ORDERED: Ondansetron ODT 4 MG TAB SL PRN (06:15)
[2020-07-19] MEDS ORDERED: Sodium Chloride 0.9% 1,000 ML IV SCH (06:15)
[2020-07-19 06:22] VITALS: BMI 29.0
[2020-07-19] MEDS: NIFEdipine XL 60 MG TAB PO SCH (08:42)
[2020-07-19] MEDS: Famotidine 20 MG TAB PO SCH ×2 (08:42→21:47)
[2020-07-19] MEDS: Lisinopril 20 MG TAB PO SCH (08:43)
[2020-07-19] MEDS: Ascorbic Acid 500 mg Chewable Tablet PO SCH (08:43)
[2020-07-19] MEDS: Gabapentin 300 MG CAP PO SCH ×2 (08:43→21:48)
[2020-07-19] MEDS: Metoprolol Tartrate 25 MG TAB PO SCH (08:44)
[2020-07-19] MEDS: Aspirin 81 mg Enteric Coated Tablet PO SCH (08:44)
[2020-07-19] MEDS: Multivit, Therapeutic 1 TAB PO SCH (08:44)
[2020-07-19] MEDS: Enoxaparin Sodium 40 MG/0.4 ML SYRINGE SC SCH (08:45)
[2020-07-19 09:19] LABS: Troponin I 0.119 ng/mL (< 0.028)
[2020-07-19] MEDS: Polyvinyl Alcohol 1.4%/Povidone 0.6% Opth Drops EA EYE SCH (14:12)
[2020-07-19 17:12] LABS: Troponin I 0.112 ng/mL (< 0.028)
[2020-07-19] MEDS ORDERED: VANCOMYCIN 1.25 GM/250 ML BAG 1.25 GM in Premix Bag 1 BAG IVPB SCH (20:00)
[2020-07-19] MEDS: Metoprolol Tartrate 50 MG TAB PO SCH (21:49)
[2020-07-20] MEDS: cefTRIAXone\\ROCEPHIN 1 GM in Sodium Chloride 0.9% 100 ML IVPB SCH (01:26)
[2020-07-20] MEDS: Polyvinyl Alcohol 1.4%/Povidone 0.6% Opth Drops EA EYE SCH (08:32)
[2020-07-20] MEDS: NIFEdipine XL 60 MG TAB PO SCH (08:32)
[2020-07-20] MEDS: Enoxaparin Sodium 40 MG/0.4 ML SYRINGE SC SCH (08:32)
[2020-07-20] MEDS: Lisinopril 20 MG TAB PO SCH (08:33)
[2020-07-20] MEDS: Metoprolol Tartrate 25 MG TAB PO SCH (08:33)
[2020-07-20] MEDS: Saccharomyces boulardii 250 MG CAP PO SCH (08:33)
[2020-07-20] MEDS: Ferrous Sulfate 325 MG TAB PO SCH (08:33)
[2020-07-20] MEDS: Ascorbic Acid 500 mg Chewable Tablet PO SCH (08:34)
[2020-07-20] MEDS: Gabapentin 300 MG CAP PO SCH ×2 (08:34→20:22)
[2020-07-20] MEDS: Famotidine 20 MG TAB PO SCH ×2 (08:34→20:20)
[2020-07-20] MEDS: Aspirin 81 mg Enteric Coated Tablet PO SCH (08:34)
[2020-07-20] MEDS: Multivit, Therapeutic 1 TAB PO SCH (08:35)
[2020-07-20 08:37] LABS: #Eosinphils 0.3 thou/uL (0.0-0.7); #Lymphocytes 2.1 thou/uL (1.20-3.40); #Monocytes 0.5 thou/uL (0.11-0.59); #Neutrophils 6.5 thou/uL (1.40-6.50); %Basophils 0.5 % (0.0-1.0); %Eosinophils 3.1 % (0.0-10.0); %Lymphocytes 22.1 % (21.0-51.0); %Monocytes 4.8 % (0.0-10.0); %Neutrophils 69.6 % (42.0-75.0); Hemoglobin 11.6 g/dL (12.0-16.0); Mean Corpuscular HGB CONC 32.5 g/dL (32.0-36.0); Mean Corpuscular Volume 89.3 fL (78.0-98.0); Mean Platelet Volume 7.1 fL (7.4-10.4); Platelet Count 267 thou/uL (130-400); RBC Distribution Width 12.4 % (11.5-14.5); Red Blood Cell (RBC) Count 3.99 mill/uL (4.20-5.40); White Blood Cell (WBC) Count 9.4 thou/uL (4.8-10.8)
[2020-07-20 08:51] LABS: Anion Gap 15 mmol/L (10-20); BUN (Urea Nitrogen) 13 mg/dL (9.8-20.1); Calc. Creatinine Clearance 85 mL/min (70-130); Calcium 9.5 mg/dL (7.8-10.44); Carbon Dioxide 22 mmol/L (23-31); Chloride 110 mmol/L (98-107); Glucose 85 mg/dL (83-110); Potassium 4.4 mmol/L (3.5-5.1); Sodium 143 mmol/L (136-145)
[2020-07-20] MEDS: Metoprolol Tartrate 50 MG TAB PO SCH (20:20)
[2020-07-21] MEDS: cefTRIAXone\\ROCEPHIN 1 GM in Sodium Chloride 0.9% 100 ML IVPB SCH (01:01)
[2020-07-21] MEDS: Ferrous Sulfate 325 MG TAB PO SCH (09:21)
[2020-07-21] MEDS: NIFEdipine XL 60 MG TAB PO SCH (09:21)
[2020-07-21] MEDS: Metoprolol Tartrate 25 MG TAB PO SCH (09:22)
[2020-07-21] MEDS: Multivit, Therapeutic 1 TAB PO SCH (09:22)
[2020-07-21] MEDS: Gabapentin 300 MG CAP PO SCH (09:22)
[2020-07-21] MEDS: Famotidine 20 MG TAB PO SCH (09:23)
[2020-07-21] MEDS: Saccharomyces boulardii 250 MG CAP PO SCH (09:23)
[2020-07-21] MEDS: Aspirin 81 mg Enteric Coated Tablet PO SCH (09:23)
[2020-07-21] MEDS: Ascorbic Acid 500 mg Chewable Tablet PO SCH (09:23)
[2020-07-21] MEDS: Enoxaparin Sodium 40 MG/0.4 ML SYRINGE SC SCH (09:24)
[2020-07-21] MEDS: Lisinopril 20 MG TAB PO SCH (09:24)
[2020-07-21] MEDS: Polyvinyl Alcohol 1.4%/Povidone 0.6% Opth Drops EA EYE SCH (10:43)
[2020-07-21 11:37] LABS: SARS-CoV-2 PCR by NAA Not Detected (NotDetected)
[2020-07-21 15:33] VITALS: BP 147/64; TEMP 98.9
[2020-07-21] MEDS ORDERED: Cephalexin 250 MG CAP PO SCH (21:00)
== END 2020-07-21 16:10 | DRG 871 ==
LOC: ERS 20:51 → 2SE 07-19 00:37
PROVIDERS: ADMIT Family Medicine; ATTEND Family Medicine
DX: A41.9 Sepsis, unspecified organism (principal); I21.A1 Myocardial infarction type 2; N39.0 Urinary tract infection, site not specified; E87.2 Acidosis; M86.9 Osteomyelitis, unspecified; I10 Essential (primary) hypertension; K21.9 Gastro-esophageal reflux disease without esophagitis; E11.69 Type 2 diabetes mellitus with other specified complication; K82.4 Cholesterolosis of gallbladder
CPT/HCPCS: 36415; 36416; 51701; 71045; 71275; 76705; 80048; 80053; 81003; 81015; 82274; 82550; 82553; 83605; 83690; 83880; 84145; 84484; 85025; 85379; 85652; 87040; 87077; 87086; 87186; 87635; 93005; 96365; 96368; J0696; J1650; J3370; J3490; Q9967; U0003; U0005

== ENCOUNTER 2021-04-27 18:59 | Inpatient (IN) | payer OTHER ==
[2021-04-27 20:02] LABS: Bilirubin Negative (Negative); Blood, Urine 1+ (Negative); Clarity Extra Turbid (Clear); Glucose, Urine (Dipstick) Normal (Negative); Ketone, Urine Negative (Negative); Leukocyte 500 Leu/uL (Negative); Nitrite 2+ (Negative); Protein, Urine (Dipstick) 100 mg/dL (Neg-Trace); Specific Gravity, Urine 1.017 (1.002-1.036); Urobilinogen Normal mg/dL (Less than 2); pH, Urine 5.5 (5.0-9.0)
[2021-04-27 20:03] LABS: Bacteria/HPF 4+ HPF (None Seen)
[2021-04-27 20:07] LABS: #Lymphocytes 0.9 thou/uL (1.20-3.40); #Monocytes 0.8 thou/uL (0.11-0.59); #Neutrophils 12.4 thou/uL (1.40-6.50); %Basophils 0.3 % (0.0-1.0); %Eosinophils 0.2 % (0.0-10.0); %Lymphocytes 6.1 % (21.0-51.0); %Monocytes 5.7 % (0.0-10.0); %Neutrophils 87.7 % (42.0-75.0); Hemoglobin 9.5 g/dL (12.0-16.0); Mean Corpuscular Hemoglobin 28.5 pg (27.0-31.0); Mean Corpuscular Volume 89.2 fL (78.0-98.0); Mean Platelet Volume 7.3 fL (7.4-10.4); Platelet Count 199 thou/uL (130-400); RBC Distribution Width 13.3 % (11.5-14.5); Red Blood Cell (RBC) Count 3.34 mill/uL (4.20-5.40); White Blood Cell (WBC) Count 14.1 thou/uL (4.8-10.8)
[2021-04-27 20:22] LABS: ALT (SGPT) 10 U/L (8-55); AST (SGOT) 22 U/L (5-34); Albumin 3.2 g/dL (3.4-4.8); Alkaline Phosphatase 112 U/L (40-110); Anion Gap 14 mmol/L (10-20); BUN (Urea Nitrogen) 34 mg/dL (9.8-20.1); Bilirubin, Total 0.7 mg/dL (0.2-1.2); Calc. Creatinine Clearance 0 mL/min (70-130); Calcium 8.1 mg/dL (7.8-10.44); Carbon Dioxide 20 mmol/L (23-31); Chloride 107 mmol/L (98-107); Globulin 2.9 g/dL (2.4-3.5); Glucose 161 mg/dL (83-110); Potassium 4.3 mmol/L (3.5-5.1); Protein, Total 6.1 g/dL (5.8-8.1); Sodium 137 mmol/L (136-145)
[2021-04-27 20:23] LABS: CRP (Inflammatory) 25.09 mg/dL (= or < 0.5)
[2021-04-27] MEDS ORDERED: cefTRIAXone\\ROCEPHIN 1 GM VIAL ONE (20:37)
[2021-04-27 20:44] LABS: CKMB 0.7 ng/mL (0-6.6)
[2021-04-27] MEDS ORDERED: Ondansetron PF 4 MG/2 ML Vial IVP PRN (21:11)
[2021-04-27] MEDS ORDERED: HumaLOG 300 UNITS/3 ML VIAL SC PRN ×2 (21:14)
[2021-04-27] MEDS ORDERED: Dextrose 50% Abboject 50 ML SYRINGE SLOW IVP PRN (21:14)
[2021-04-27] MEDS ORDERED: Dextrose 5% in Water 1,000 ML IV PRN (21:14)
[2021-04-27 21:28] LABS: Alcohol Less than 10 mg/dL (Less than 10); Salicylate Less than 8.0 mg/dL (15.0-30.0)
[2021-04-27] MEDS ORDERED: Vancomycin 1 GM/200 ML BAG ONE (22:13)
[2021-04-27 22:39] LABS: Amphetamine Not Detected (NotDetected); Barbiturates Screen Not Detected (NotDetected); Benzodiazepine Screen Not Detected (NotDetected); Cocaine Metabolite Screen Not Detected (NotDetected); Methadone Not Detected (NotDetected); Methamphetamine Not Detected (NotDetected); Opiate Screen Not Detected (NotDetected); Oxycodone Screen Not Detected (NotDetected); Phencyclidine (PCP) Not Detected (NotDetected); THC/Cannabinoid Screen Not Detected (NotDetected); Tricyclic Screen Not Detected (NotDetected)
[2021-04-27 22:40] LABS: SARS-CoV-2 NAA Rapid Test Not Detected (NotDetected)
[2021-04-28] MEDS: Sodium Chloride 0.9% 1,000 ML IV SCH ×2 (00:50→18:13)
[2021-04-28 00:54] VITALS: BMI 32.3
[2021-04-28] MEDS: Cefepime 1 GM in Sodium Chloride 0.9% 100 ML IVPB SCH (02:56)
[2021-04-28] MEDS: Acetaminophen 325 MG TAB PO PRN ×2 (04:13→18:09)
[2021-04-28 08:25] LABS: #Lymphocytes 0.7 thou/uL (1.20-3.40); #Monocytes 0.9 thou/uL (0.11-0.59); #Neutrophils 10.9 thou/uL (1.40-6.50); %Basophils 0.2 % (0.0-1.0); %Eosinophils 0.2 % (0.0-10.0); %Lymphocytes 5.7 % (21.0-51.0); Hemoglobin 9.3 g/dL (12.0-16.0); Mean Corpuscular HGB CONC 31.8 g/dL (32.0-36.0); Mean Corpuscular Hemoglobin 28.4 pg (27.0-31.0); Mean Corpuscular Volume 89.4 fL (78.0-98.0); Mean Platelet Volume 7.6 fL (7.4-10.4); Platelet Count 195 thou/uL (130-400); RBC Distribution Width 13.1 % (11.5-14.5); Red Blood Cell (RBC) Count 3.27 mill/uL (4.20-5.40); White Blood Cell (WBC) Count 12.5 thou/uL (4.8-10.8)
[2021-04-28 08:40] LABS: Anion Gap 12 mmol/L (10-20); BUN (Urea Nitrogen) 29 mg/dL (9.8-20.1); Calc. Creatinine Clearance 44 mL/min (70-130); Calcium 8.2 mg/dL (7.8-10.44); Carbon Dioxide 21 mmol/L (23-31); Chloride 109 mmol/L (98-107); Glucose 120 mg/dL (83-110); Potassium 4.1 mmol/L (3.5-5.1); Sodium 138 mmol/L (136-145)
[2021-04-28] MEDS ORDERED: Cefepime 1 GM in Sodium Chloride 0.9% 100 ML IVPB SCH (09:00)
[2021-04-28] MEDS: Enoxaparin Sodium 30 MG/0.3 ML SYRINGE SC SCH (09:46)
[2021-04-29] MEDS: Cefepime 1 GM in Sodium Chloride 0.9% 100 ML IVPB SCH (00:17)
[2021-04-29] MEDS: Sodium Chloride 0.9% 1,000 ML IV SCH ×2 (00:23→04:18)
[2021-04-29] MEDS: Acetaminophen 325 MG TAB PO PRN ×3 (02:55→22:35)
[2021-04-29 04:57] LABS: #Eosinphils 0.2 thou/uL (0.0-0.7); #Monocytes 0.9 thou/uL (0.11-0.59); #Neutrophils 8.7 thou/uL (1.40-6.50); %Basophils 0.4 % (0.0-1.0); %Eosinophils 1.7 % (0.0-10.0); %Lymphocytes 8.8 % (21.0-51.0); %Monocytes 8.2 % (0.0-10.0); %Neutrophils 80.9 % (42.0-75.0); Hemoglobin 10.2 g/dL (12.0-16.0); Mean Corpuscular HGB CONC 31.3 g/dL (32.0-36.0); Mean Corpuscular Hemoglobin 28.1 pg (27.0-31.0); Mean Corpuscular Volume 89.8 fL (78.0-98.0); Mean Platelet Volume 7.3 fL (7.4-10.4); Platelet Count 238 thou/uL (130-400); RBC Distribution Width 13.2 % (11.5-14.5); Red Blood Cell (RBC) Count 3.65 mill/uL (4.20-5.40); White Blood Cell (WBC) Count 10.8 thou/uL (4.8-10.8)
[2021-04-29 05:12] LABS: Anion Gap 11 mmol/L (10-20); BUN (Urea Nitrogen) 20 mg/dL (9.8-20.1); Calc. Creatinine Clearance 58 mL/min (70-130); Calcium 8.8 mg/dL (7.8-10.44); Carbon Dioxide 22 mmol/L (23-31); Chloride 107 mmol/L (98-107); Glucose 90 mg/dL (83-110); Potassium 4.2 mmol/L (3.5-5.1); Sodium 136 mmol/L (136-145)
[2021-04-29] MEDS: Enoxaparin Sodium 30 MG/0.3 ML SYRINGE SC SCH (09:58)
[2021-04-29] MEDS: cefTRIAXone\\ROCEPHIN 2 GM in Sodium Chloride 0.9% 100 ML IVPB SCH (17:13)
[2021-04-30 04:55] LABS: #Basophils 0.1 thou/uL (0.0-0.2); #Eosinphils 0.2 thou/uL (0.0-0.7); #Lymphocytes 1.3 thou/uL (1.20-3.40); #Monocytes 0.9 thou/uL (0.11-0.59); #Neutrophils 5.5 thou/uL (1.40-6.50); %Basophils 0.7 % (0.0-1.0); %Eosinophils 2.6 % (0.0-10.0); %Lymphocytes 16.2 % (21.0-51.0); %Monocytes 11.7 % (0.0-10.0); %Neutrophils 68.8 % (42.0-75.0); Hemoglobin 10.7 g/dL (12.0-16.0); Mean Corpuscular HGB CONC 33.2 g/dL (32.0-36.0); Mean Corpuscular Hemoglobin 29.6 pg (27.0-31.0); Mean Corpuscular Volume 89.2 fL (78.0-98.0); Mean Platelet Volume 7.2 fL (7.4-10.4); Platelet Count 222 thou/uL (130-400); RBC Distribution Width 13.2 % (11.5-14.5); White Blood Cell (WBC) Count 7.9 thou/uL (4.8-10.8)
[2021-04-30 05:14] LABS: Anion Gap 12 mmol/L (10-20); BUN (Urea Nitrogen) 13 mg/dL (9.8-20.1); Calc. Creatinine Clearance 65 mL/min (70-130); Calcium 8.7 mg/dL (7.8-10.44); Carbon Dioxide 24 mmol/L (23-31); Chloride 104 mmol/L (98-107); Glucose 88 mg/dL (83-110); Potassium 3.5 mmol/L (3.5-5.1); Sodium 136 mmol/L (136-145)
[2021-04-30] MEDS ORDERED: hydrALAZINE 20 MG/ML VIAL SLOW IVP PRN (05:56)
[2021-04-30] MEDS: Enoxaparin Sodium 30 MG/0.3 ML SYRINGE SC SCH (08:53)
[2021-04-30] MEDS: cefTRIAXone\\ROCEPHIN 2 GM in Sodium Chloride 0.9% 100 ML IVPB SCH (14:14)
[2021-04-30] MEDS: Acetaminophen 325 MG TAB PO PRN (16:29)
[2021-05-01 05:18] LABS: Hemoglobin 9.5 g/dL (12.0-16.0); Mean Corpuscular HGB CONC 31.8 g/dL (32.0-36.0); Mean Corpuscular Hemoglobin 28.2 pg (27.0-31.0); Mean Corpuscular Volume 88.7 fL (78.0-98.0); Mean Platelet Volume 7.2 fL (7.4-10.4); Platelet Count 270 thou/uL (130-400); RBC Distribution Width 13.2 % (11.5-14.5); Red Blood Cell (RBC) Count 3.37 mill/uL (4.20-5.40); White Blood Cell (WBC) Count 8.6 thou/uL (4.8-10.8)
[2021-05-01 05:20] LABS: Anion Gap 15 mmol/L (10-20); BUN (Urea Nitrogen) 15 mg/dL (9.8-20.1); Calc. Creatinine Clearance 64 mL/min (70-130); Calcium 8.7 mg/dL (7.8-10.44); Carbon Dioxide 24 mmol/L (23-31); Chloride 104 mmol/L (98-107); Glucose 87 mg/dL (83-110); Potassium 3.6 mmol/L (3.5-5.1); Sodium 139 mmol/L (136-145)
[2021-05-01 05:52] LABS: Band 4 % (5-11); Lymphocytes 11 % (21-51); MDiff Complete? YES; Monocytes 14 % (0-10); Neutrophil 71 % (42-75)
[2021-05-01] MEDS: NIFEdipine XL 90 MG TAB PO SCH (08:45)
[2021-05-01] MEDS: Aspirin 81 mg Enteric Coated Tablet PO SCH (08:45)
[2021-05-01] MEDS: Enoxaparin Sodium 40 MG/0.4 ML SYRINGE SC SCH (08:45)
[2021-05-01] MEDS: Metoprolol Tartrate 50 MG TAB PO SCH ×2 (08:45→21:53)
[2021-05-01] MEDS: Gabapentin 300 MG CAP PO SCH ×2 (08:46→21:53)
[2021-05-01] MEDS ORDERED: Metoprolol Tartrate 25 MG TAB PO SCH (09:00)
[2021-05-01] MEDS ORDERED: Amlodipine 5 MG TAB PO SCH (09:00)
[2021-05-01] MEDS ORDERED: NIFEdipine XL 60 MG TAB PO SCH (09:00)
[2021-05-01] MEDS ORDERED: Lisinopril 5 MG TAB PO SCH (09:00)
[2021-05-01] MEDS ORDERED: Furosemide 20 MG/2 ML VIAL SLOW IVP SCH ×3 (10:45→15:00)
[2021-05-01] MEDS: cefTRIAXone\\ROCEPHIN 2 GM in Sodium Chloride 0.9% 100 ML IVPB SCH (15:16)
[2021-05-02] MEDS: NIFEdipine XL 90 MG TAB PO SCH (08:20)
[2021-05-02] MEDS: Enoxaparin Sodium 40 MG/0.4 ML SYRINGE SC SCH (08:20)
[2021-05-02] MEDS: Gabapentin 300 MG CAP PO SCH ×2 (08:20→20:00)
[2021-05-02] MEDS: Aspirin 81 mg Enteric Coated Tablet PO SCH (08:20)
[2021-05-02] MEDS: Metoprolol Tartrate 50 MG TAB PO SCH ×2 (08:20→20:00)
[2021-05-02 08:31] LABS: Hemoglobin 10.2 g/dL (12.0-16.0); Mean Corpuscular HGB CONC 31.7 g/dL (32.0-36.0); Mean Corpuscular Hemoglobin 28.2 pg (27.0-31.0); Mean Corpuscular Volume 88.9 fL (78.0-98.0); Mean Platelet Volume 6.9 fL (7.4-10.4); Platelet Count 354 thou/uL (130-400); RBC Distribution Width 13.4 % (11.5-14.5); Red Blood Cell (RBC) Count 3.61 mill/uL (4.20-5.40); White Blood Cell (WBC) Count 8.4 thou/uL (4.8-10.8)
[2021-05-02] MEDS: Spironolactone 25 MG TAB PO SCH (08:43)
[2021-05-02 08:47] LABS: Anion Gap 14 mmol/L (10-20); BUN (Urea Nitrogen) 17 mg/dL (9.8-20.1); Calc. Creatinine Clearance 68 mL/min (70-130); Calcium 9.1 mg/dL (7.8-10.44); Carbon Dioxide 23 mmol/L (23-31); Chloride 105 mmol/L (98-107); Glucose 84 mg/dL (83-110); Potassium 3.9 mmol/L (3.5-5.1); Sodium 138 mmol/L (136-145)
[2021-05-02 08:58] LABS: Band 7 % (5-11); Eosinophils 4 % (0-10); Lymphocytes 19 % (21-51); MDiff Complete? YES; Monocytes 10 % (0-10); Neutrophil 59 % (42-75); Platelet Morphology Comment Appears Adequate; Polychromasia SLIGHT = 2-3 cells (100X) (0-2/hpf); Reactive Lymphocytes 1 % (0-10)
[2021-05-02] MEDS ORDERED: Furosemide 40 MG/4 ML VIAL SLOW IVP SCH (09:00)
[2021-05-02] MEDS: cefTRIAXone\\ROCEPHIN 2 GM in Sodium Chloride 0.9% 100 ML IVPB SCH (16:08)
[2021-05-03 03:23] VITALS: TEMP 98.2
[2021-05-03 06:26] LABS: #Basophils 0.1 thou/uL (0.0-0.2); #Eosinphils 0.3 thou/uL (0.0-0.7); #Lymphocytes 1.9 thou/uL (1.20-3.40); #Monocytes 0.9 thou/uL (0.11-0.59); #Neutrophils 4.5 thou/uL (1.40-6.50); %Basophils 1.1 % (0.0-1.0); %Eosinophils 4.1 % (0.0-10.0); %Lymphocytes 24.6 % (21.0-51.0); %Monocytes 11.7 % (0.0-10.0); %Neutrophils 58.5 % (42.0-75.0); Hemoglobin 10.6 g/dL (12.0-16.0); Mean Corpuscular HGB CONC 31.8 g/dL (32.0-36.0); Mean Corpuscular Hemoglobin 28.5 pg (27.0-31.0); Mean Corpuscular Volume 89.5 fL (78.0-98.0); Mean Platelet Volume 6.9 fL (7.4-10.4); Platelet Count 421 thou/uL (130-400); RBC Distribution Width 13.4 % (11.5-14.5); Red Blood Cell (RBC) Count 3.72 mill/uL (4.20-5.40); White Blood Cell (WBC) Count 7.7 thou/uL (4.8-10.8)
[2021-05-03 06:33] LABS: Anion Gap 16 mmol/L (10-20); BUN (Urea Nitrogen) 20 mg/dL (9.8-20.1); Calc. Creatinine Clearance 71 mL/min (70-130); Carbon Dioxide 24 mmol/L (23-31); Chloride 104 mmol/L (98-107); Glucose 85 mg/dL (83-110); Sodium 140 mmol/L (136-145)
[2021-05-03] MEDS ORDERED: Furosemide 40 MG TAB PO SCH (07:30)
[2021-05-03] MEDS: Enoxaparin Sodium 40 MG/0.4 ML SYRINGE SC SCH (09:51)
[2021-05-03] MEDS: Aspirin 81 mg Enteric Coated Tablet PO SCH (09:52)
[2021-05-03] MEDS: Spironolactone 25 MG TAB PO SCH (09:52)
[2021-05-03] MEDS: Gabapentin 300 MG CAP PO SCH (09:52)
[2021-05-03] MEDS: Metoprolol Tartrate 50 MG TAB PO SCH (09:53)
[2021-05-03] MEDS: NIFEdipine XL 90 MG TAB PO SCH (09:53)
[2021-05-03 15:25] VITALS: BP 118/56
== END 2021-05-03 16:58 | DRG 871 ==
LOC: ERS 18:59 → 2NO 20:58
PROVIDERS: ADMIT Internal Medicine; ATTEND Hospitalist
DX: A41.51 Sepsis due to Escherichia coli [E. coli] (principal); J18.9 Pneumonia, unspecified organism; J96.01 Acute respiratory failure with hypoxia; I50.33 Acute on chronic diastolic (congestive) heart failure; G93.41 Metabolic encephalopathy; N17.9 Acute kidney failure, unspecified; I24.8 Other forms of acute ischemic heart disease; N30.00 Acute cystitis without hematuria; M46.26 Osteomyelitis of vertebra, lumbar region; Z23 Encounter for immunization; Z20.822 Contact with and (suspected) exposure to COVID-19; I27.20 Pulmonary hypertension, unspecified; I11.0 Hypertensive heart disease with heart failure; I07.1 Rheumatic tricuspid insufficiency; D64.9 Anemia, unspecified; K21.9 Gastro-esophageal reflux disease without esophagitis; E11.51 Type 2 diabetes mellitus with diabetic peripheral angiopathy without gangrene; F32.A Depression, unspecified; E11.69 Type 2 diabetes mellitus with other specified complication; Z91.81 History of falling; Z79.82 Long term (current) use of aspirin; Z79.899 Other long term (current) drug therapy
CPT/HCPCS: 36415; 36416; 51701; 70450; 71045; 71275; 72125; 80048; 80053; 80306; 80307; 81003; 81015; 82550; 82553; 83605; 83880; 84443; 84484; 85025; 86140; 87040; 87077; 87086; 87149; 87186; 87804; 90471; 90732; 93005; 93306; 94760; 96374; 96375; G0009; J0360; J0692; J0696; J1650; J1940; J3370; J3490; J7050; U0002

== ENCOUNTER 2022-02-01 04:59 | Emergency (ER) | payer BC, OTHER ==
[2022-02-01 05:54] LABS: #Basophils 0.1 thou/uL (0.0-0.2); #Eosinphils 0.3 thou/uL (0.0-0.7); #Lymphocytes 2.2 thou/uL (1.20-3.40); #Monocytes 0.5 thou/uL (0.11-0.59); #Neutrophils 3.1 thou/uL (1.40-6.50); %Eosinophils 4.4 % (0.0-10.0); %Lymphocytes 35.9 % (21.0-51.0); %Monocytes 8.7 % (0.0-10.0); Hemoglobin 10.4 g/dL (12.0-16.0); Mean Corpuscular HGB CONC 31.7 g/dL (32.0-36.0); Mean Corpuscular Hemoglobin 29.3 pg (27.0-31.0); Mean Corpuscular Volume 92.4 fl (78.0-98.0); Mean Platelet Volume 7.3 fL (7.4-10.4); Platelet Count 235 thou/uL (130-400); RBC Distribution Width 12.6 % (11.5-14.5); Red Blood Cell (RBC) Count 3.56 mill/uL (4.20-5.40); White Blood Cell (WBC) Count 6.2 thou/uL (4.8-10.8)
[2022-02-01 06:19] LABS: ALT (SGPT) 10 U/L (8-55); AST (SGOT) 14 U/L (5-34); Alkaline Phosphatase 102 U/L (40-110); Anion Gap 10 mmol/L (10-20); BUN (Urea Nitrogen) 24 mg/dL (9.8-20.1); Bilirubin, Total 0.3 mg/dL (0.2-1.2); Calc. Creatinine Clearance 0 mL/min (70-130); Calcium 9.2 mg/dL (7.8-10.44); Carbon Dioxide 23 mmol/L (23-31); Chloride 113 mmol/L (98-107); Estimated GFR 39; Globulin 3.2 g/dL (2.4-3.5); Glucose 71 mg/dL (83-110); Potassium 5.8 mmol/L (3.5-5.1); Protein, Total 7.2 g/dL (5.8-8.1); Sodium 140 mmol/L (136-145)
== END 2022-02-01 09:17 | disposition home or self-care (01) ==
LOC: ERS 04:59
DX: D25.9 Leiomyoma of uterus, unspecified (principal); E11.9 Type 2 diabetes mellitus without complications; K21.9 Gastro-esophageal reflux disease without esophagitis; I10 Essential (primary) hypertension; Z79.899 Other long term (current) drug therapy
CPT/HCPCS: 36415; 76856; 80053; 85025; 93976

== ENCOUNTER 2023-08-06 09:41 | Emergency (ER) | payer BC, MEDICAID | END 2023-08-06 13:59 | LOC: ERS 09:41 | DX: I82.403 Acute embolism and thrombosis of unspecified deep veins of lower extremity, bilateral (principal); I10 Essential (primary) hypertension; D64.9 Anemia, unspecified; F03.90 Unspecified dementia, unspecified severity, without behavioral disturbance, psychotic disturbance, mood disturbance, and anxiety; E11.51 Type 2 diabetes mellitus with diabetic peripheral angiopathy without gangrene; M86.9 Osteomyelitis, unspecified; I87.2 Venous insufficiency (chronic) (peripheral); Z55.6 Problems related to health literacy | CPT/HCPCS: 36416; 80053; 85025; 85610; 85730; 93005; 93970 ==

== ENCOUNTER 2024-04-07 19:29 | Emergency (ER) | payer BC, OTHER ==
[2024-04-07 20:51] LABS: INR-International Normal Ratio 1.1; Prothrombin Time 14.4 sec (12.0-14.7)
[2024-04-07 20:52] LABS: PTT 27.8 sec (22.9-36.1)
[2024-04-07 20:56] LABS: Calc. Creatinine Clearance 0 mL/min (70-130); Estimated GFR 47
[2024-04-07 20:58] LABS: ALT (SGPT) 6 U/L (8-55); AST (SGOT) 12 U/L (5-34); Albumin 3.4 g/dL (3.4-4.8); Alkaline Phosphatase 76 U/L (40-110); Anion Gap 14 mmol/L (10-20); BUN (Urea Nitrogen) 36 mg/dL (9.8-20.1); Bilirubin, Total 0.1 mg/dL (0.2-1.2); Calcium 8.6 mg/dL (7.8-10.44); Carbon Dioxide 22 mmol/L (23-31); Chloride 116 mmol/L (98-107); Globulin 4.2 g/dL (2.4-3.5); Glucose 206 mg/dL (83-110); Protein, Total 7.6 g/dL (5.8-8.1); Sodium 147 mmol/L (136-145)
[2024-04-07 21:42] LABS: Bacteria/HPF 4+ HPF (None Seen); Bilirubin Negative (Negative); Blood, Urine Negative (Negative); CAUTI Indications for Culture Dysuria,urgency,freq; Clarity Clear (Clear); Glucose, Urine (Dipstick) Normal (Negative); Ketone, Urine Negative (Negative); Leukocyte 500 Leu/uL (Negative); Nitrite Negative (Negative); Protein, Urine (Dipstick) 10 mg/dL (Neg-Trace); RBC/HPF 0-3 HPF (0-3); Specific Gravity, Urine 1.014 (1.002-1.036); Squamous Epithelial 0-3 HPF (0-3); Urobilinogen Normal mg/dL (Less than 2); WBC/HPF Greater than 50 HPF (0-3); pH, Urine 6.5 (5.0-9.0)
[2024-04-07 22:03] LABS: Urine Culture Reflex Yes Yes
[2024-04-07 22:19] LABS: Hematocrit 25.2 % (36.0-47.0); Hemoglobin 7.1 g/dL (12.0-16.0); Mean Corpuscular HGB CONC 28.2 g/dL (32.0-36.0); Mean Corpuscular Hemoglobin 23.8 pg (27.0-31.0); Mean Corpuscular Volume 84.6 fL (78.0-98.0); Mean Platelet Volume 10.2 fL (7.4-10.4); Platelet Count 308 10x3/uL (130-400); RBC Distribution Width 18.1 % (11.5-14.5); Red Blood Cell (RBC) Count 2.98 mill/uL (4.20-5.40)
[2024-04-07 22:20] LABS: Anisocytosis SLIGHT = 6-15 cells HPF (0-5); Eosinophils 5 % (0-10); Lymphocytes 28 % (21-51); Macrocytosis SLIGHT = 6-15 cells HPF (0-5); Monocytes 3 % (0-10); Neutrophil 64 % (42-75); Ovalocytes SLIGHT = 2-5 cells HPF (0-1); Platelet Adequacy Comment Platelets Normal; Polychromasia SLIGHT = 2-3 cells HPF (0-2); Smudge Cells 3.1 %; Target Cells SLIGHT = 2-5 cells HPF (0-1)
[2024-04-07] MEDS ORDERED: Tranexamic Acid 1,000 MG/10 ML VIAL ONE (23:40)
== END 2024-04-08 02:14 | disposition short-term general hospital (02) ==
LOC: ERS 19:29
DX: N95.0 Postmenopausal bleeding (principal); D25.9 Leiomyoma of uterus, unspecified; D50.0 Iron deficiency anemia secondary to blood loss (chronic); Z79.01 Long term (current) use of anticoagulants; E11.9 Type 2 diabetes mellitus without complications; F03.90 Unspecified dementia, unspecified severity, without behavioral disturbance, psychotic disturbance, mood disturbance, and anxiety; D64.9 Anemia, unspecified; I48.91 Unspecified atrial fibrillation; N31.9 Neuromuscular dysfunction of bladder, unspecified; I11.0 Hypertensive heart disease with heart failure; I50.30 Unspecified diastolic (congestive) heart failure; Z79.82 Long term (current) use of aspirin; Z79.899 Other long term (current) drug therapy
CPT/HCPCS: 36415; 74176; 76856; 80053; 81001; 85025; 85610; 85730; 86850; 86900; 86901; 87077; 87086; 87186; 93976; 96374